=== PATIENT | female | born 1940 | race Caucasian/White ===

== ENCOUNTER 2016-12-26 19:05 | Emergency (ER) | payer MEDICARE, BC ==
[2016-12-26] MEDS ORDERED: Lidocaine 1% 20 ML MDV INFILT ONE (19:06)
[2016-12-26 19:24] VITALS: BP 148/65
[2016-12-26] MEDS ORDERED: Diphtheria,Pertussis(Acell),Tetanus Vaccine 0.5 ML SDV IM ONE (19:35)
--- NOTE | 2016-12-26 19:51 | EDM.PDOC ---
ED HPI GENERAL MEDICAL PROBLEM - General Chief Complaint: Laceration Stated Complaint: CUT FINGER Time Seen by Provider: 12/26/16 19:20 Source of Information: Reports: Patient History Limitations: Reports: No Limitations - History of Present Illness INITIAL COMMENTS - FREE TEXT/NARRATIVE: Patient is a 76 year old woman who was slicing cucumbers with a slicer and she sliced the end of her right little finger. This happened at 3 pm today. She is on Coumadin and it is bleeding. She needs to have a tetanus shot. 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) - Related Data Allergies Allergy/AdvReac Type Severity Reaction Status Date / Time amoxicillin trihydrate Allergy Diarrhea Verified 12/26/16 19:15 [From Augmentin] celecoxib [From Celebrex] Allergy Stomach Verified 12/26/16 19:15 Ache ciprofloxacin [From Cipro] Allergy Nausea Verified 12/26/16 19:15 ciprofloxacin HCl Allergy Nausea Verified 12/26/16 19:15 [From Cipro] lisinopril Allergy Rash Verified 12/26/16 19:15 potassium clavulanate Allergy Diarrhea Verified 12/26/16 19:15 [From Augmentin] rofecoxib [From Vioxx] Allergy Stomach Verified 12/26/16 19:15 Ache Home Meds: Home Meds Citalopram [Citalopram HBr] 10 mg PO DAILY 06/14/14 [History] Ramipril [Altace] 5 mg PO DAILY 06/14/14 [History] Furosemide [Lasix] 20 mg PO DAILY 08/25/14 [History] Aspirin [Ecotrin] 81 mg PO DAILY 05/05/16 [History] Metoprolol Tartrate 0.5 tab PO BID 05/05/16 [History] Omeprazole 20 mg PO DAILY 05/05/16 [History] Pramipexole [Mirapex] 0.5 tab PO DAILY 05/05/16 [History] Warfarin Sodium 5 mg PO SUTHSA 05/05/16 [History] Warfarin [Coumadin] 7.5 mg PO MOTUWEFR 05/05/16 [History] Past Medical History HEENT History: Reports: Cataract Cardiovascular History: Reports: Hypertension Other Respiratory History: smoker 20 years ago Other Gastrointestinal History: by pass surgery 15 years ago as stated by Genitourinary History: Reports: Renal Disease Musculoskeletal History: Reports: Arthritis Other Musculoskeletal History: verbaizes history of arthritis in hands and back Other Psychiatric History: confused and dizzy - Infectious Disease History Infectious Disease History: Reports: Chicken Pox, Measles, Mumps - Past Surgical History HEENT Surgical History: Reports: Cataract Surgery Cardiovascular Surgical History: Reports: Other (See Below) GI Surgical History: Reports: Cholecystectomy Other GI Surgeries/Procedures: 15 years ago Musculoskeletal Surgical History: Reports: Knee Replacement Social & Family History - Family History Family Medical History: Noncontributory - Tobacco Use Smoking Status *Q: Never Smoker Second Hand Smoke Exposure: No - Caffeine Use Caffeine Use: Reports: Coffee - Alcohol Use Days Per Week of Alcohol Use: 0 - Recreational Drug Use Recreational Drug Use: No ED ROS GENERAL - Review of Systems Review Of Systems: See Below Constitutional: Reports: No Symptoms HEENT: Reports: No Symptoms Respiratory: Reports: No Symptoms Cardiovascular: Reports: No Symptoms Endocrine: Reports: No Symptoms GI/Abdominal: Reports: No Symptoms : Reports: No Symptoms Musculoskeletal: Reports: No Symptoms Skin: Reports: Wound (End of right little finger) Neurological: Reports: No Symptoms Psychiatric: Reports: No Symptoms Hematologic/Lymphatic: Reports: No Symptoms Immunologic: Reports: No Symptoms ED EXAM, SKIN/RASH Exam: See Below Exam Limited By: No Limitations General Appearance: Alert, WD/WN, No Apparent Distress Eye Exam: Bilateral Eye: EOMI, Normal Fundi, Normal Inspection, PERRL Ears: Normal External Exam, Normal Canal, Hearing Grossly Normal, Normal TMs Nose: Normal Inspection, Normal Mucosa, No Blood Throat/Mouth: Normal Inspection, Normal Lips, Normal Teeth, Normal Gums, Normal Oropharynx, Normal Voice, No Airway Compromise Head: Atraumatic, Normocephalic Neck: Normal Inspection, Supple, Non-Tender, Full Range of Motion Respiratory/Chest: No Respiratory Distress, Lungs Clear, Normal Breath Sounds, No Accessory Muscle Use, Chest Non-Tender Peripheral Pulses: 3+: Radial (L), Radial (R) GI/Abdominal: Normal Bowel Sounds, Soft, Non-Tender, No Organomegaly, No Distention, No Abnormal Bruit, No Mass Extremities: Other (Right little finger has a 1 cm laceration on the end of her right little finger with skin flaps.) Neurological: Alert, Oriented, CN II-XII Intact, Normal Cognition, Normal Gait, Normal Reflexes, No Motor/Sensory Deficits Psychiatric: Normal Affect, Normal Mood Skin: Wound/Incision (As described above in extremity exam.) Location, Skin: Upper Extremity, Right (Little finger.) Lymphatic: No Adenopathy ED SKIN PROCEDURES - Laceration/Wound Repair Right Upper Lateral Distal Finger Lac/Wound length In cm: 1 Appearance: Superficial Distal NVT: Neuro & Vascular Intact, No Tendon Injury Anesthetic Type: Local Local Anesthesia - Lidocaine (Xylocaine): 1% Plain Local Anesthetic Volume: 1cc Skin Prep: Providone-Iodine (Betadine) Exploration/Debridement/Repair: Wound Explored, In a Bloodless Field, Explored to Base Closed with: Sutures Suture Size: 4-0 # of Sutures: 2 Suture Type: Prolene, Interrupted, Simple Sterile Dressing Applied: Nurse Tetanus Status Addressed: Yes Complications: No Course - Vital Signs Text/Narrative:: Uneventful ED course. Laceration was repaired and 2 sutures were placed. She got her tetanus shot, the wound was dressed and she will come back in one week for suture removal. Last Recorded V/S: Last Vital Signs Temp Pulse 65 12/26/16 19:21 Resp 18 12/26/16 19:21 BP 148/65 H 12/26/16 19:21 Pulse Ox 97 12/26/16 19:21 - Orders/Labs/Meds Orders: Active Orders 24 hr Category Date Time Status Vaccines to be Administered [RC] PER UNIT ROUTINE Care 12/26/16 19:35 Active Meds: Medications Discontinued Medications Generic Name Dose Route Start Last Admin Trade Name Freq PRN Reason Stop Dose Admin Diphtheria/Tetanus/Acell Pertussis 0.5 ml 12/26/16 19:35 Adacel IM 12/26/16 19:36 .ONCE ONE Departure - Departure Time of Disposition: 19:58 Disposition: Home, Self-Care 01 Condition: Good Clinical Impression: Laceration of finger of right hand - Discharge Information Referrals: Sherif Blackwood MD [Primary Care Provider] - - My Orders Last 24 Hours: My Active Orders 12/26/16 19:35 Vaccines to be Administered [RC] PER UNIT ROUTINE - Assessment/Plan Last 24 Hours: My Active Orders 12/26/16 19:35 Vaccines to be Administered [RC] PER UNIT ROUTINE
== END 2016-12-26 20:05 | disposition home or self-care (01) ==
LOC: FB.ED 19:05
DX: S61.216A Laceration without foreign body of right little finger without damage to nail, initial encounter (principal); I10 Essential (primary) hypertension; Z98.49 Cataract extraction status, unspecified eye; Z90.49 Acquired absence of other specified parts of digestive tract; Z96.659 Presence of unspecified artificial knee joint; Z99.2 Dependence on renal dialysis; Z79.01 Long term (current) use of anticoagulants; Z79.899 Other long term (current) drug therapy; Z88.1 Allergy status to other antibiotic agents; Z88.8 Allergy status to other drugs, medicaments and biological substances; W45.8XXA Other foreign body or object entering through skin, initial encounter; Z23 Encounter for immunization
CPT/HCPCS: 12001; 90715; 99282; A4217; 99283

== ENCOUNTER 2017-12-04 15:47 | Emergency (ER) | payer MEDICARE, BC ==
--- NOTE | 2017-12-04 16:26 | EDM.PDOC ---
ED HPI GENERAL MEDICAL PROBLEM - General Chief Complaint: General Stated Complaint: black stools Time Seen by Provider: 12/04/17 16:15 Source of Information: Reports: Patient History Limitations: Reports: No Limitations - History of Present Illness INITIAL COMMENTS - FREE TEXT/NARRATIVE: Patient has had black stool x 6 weeks, currently taking iron. Presents today because stool looked a little darker and was loose. Iron tablet strength was recently increased. Patient denies abdominal pain, but does have chronic N/V due to gastric bypass (). Also denies dizziness. Currently on Warfarin for Atrial fibrillation. - Related Data Allergies Allergy/AdvReac Type Severity Reaction Status Date / Time amoxicillin trihydrate Allergy Diarrhea Verified 12/04/17 16:52 [From Augmentin] celecoxib [From Celebrex] Allergy Stomach Verified 12/04/17 16:52 Ache ciprofloxacin [From Cipro] Allergy Nausea Verified 12/04/17 16:52 ciprofloxacin HCl Allergy Nausea Verified 12/04/17 16:52 [From Cipro] lisinopril Allergy Rash Verified 12/04/17 16:52 potassium clavulanate Allergy Diarrhea Verified 12/04/17 16:52 [From Augmentin] rofecoxib [From Vioxx] Allergy Stomach Verified 12/04/17 16:52 Ache hctz Allergy Dizziness Uncoded 12/04/17 16:53 Home Meds: Home Meds Citalopram [Citalopram HBr] 10 mg PO DAILY 06/14/14 [History] Ramipril [Altace] 5 mg PO DAILY 06/14/14 [History] Furosemide [Lasix] 20 mg PO DAILY 08/25/14 [History] Aspirin [Ecotrin] 81 mg PO DAILY 05/05/16 [History] Metoprolol Tartrate 0.5 tab PO BID 05/05/16 [History] Omeprazole 20 mg PO DAILY 05/05/16 [History] Pramipexole [Mirapex] 0.5 tab PO DAILY 05/05/16 [History] Warfarin Sodium 5 mg PO SUTHSA 05/05/16 [History] Warfarin [Coumadin] 7.5 mg PO MOTUWEFR 05/05/16 [History] Past Medical History HEENT History: Reports: Cataract Cardiovascular History: Reports: Afib, Hypertension, Pacemaker Other Respiratory History: smoker 20 years ago Gastrointestinal History: Reports: GERD Other Gastrointestinal History: by pass surgery 15 years ago as stated by Genitourinary History: Reports: Chronic Renal Insuffiency Musculoskeletal History: Reports: Arthritis Other Musculoskeletal History: verbaizes history of arthritis in hands and back Other Psychiatric History: confused and dizzy Hematologic History: Reports: Anemia - Infectious Disease History Infectious Disease History: Reports: Chicken Pox, Measles, Mumps - Past Surgical History HEENT Surgical History: Reports: Cataract Surgery Cardiovascular Surgical History: Reports: Other (See Below) (Tricuspid and Mitral valve repair) GI Surgical History: Reports: Bariatric Procedure (Gastric bypass (1960's)), Cholecystectomy Other GI Surgeries/Procedures: 15 years ago Musculoskeletal Surgical History: Reports: Knee Replacement Social & Family History - Family History Family Medical History: Noncontributory - Tobacco Use Smoking Status *Q: Never Smoker Tobacco Use Within Last Twelve Months: No - Caffeine Use Caffeine Use: Reports: Coffee ED ROS GENERAL - Review of Systems Review Of Systems: ROS reveals no pertinent complaints other than HPI. ED EXAM, GENERAL - Physical Exam Exam: See Below Exam Limited By: No Limitations General Appearance: Alert, WD/WN, No Apparent Distress Ears: Normal External Exam Nose: Normal Inspection Throat/Mouth: No Airway Compromise Head: Atraumatic, Normocephalic Neck: Supple Respiratory/Chest: No Respiratory Distress, Normal Breath Sounds Cardiovascular: Regular Rate, Rhythm, No Murmur GI/Abdominal: Normal Bowel Sounds, Soft, Non-Tender, No Distention (Female) Exam: Deferred Rectal (Female) Exam: Normal Exam, Normal Rectal Tone, Black Stool, Heme - Stool Neurological: Alert, Normal Cognition, No Motor/Sensory Deficits Psychiatric: Normal Affect, Normal Mood Skin Exam: Warm, Dry, Intact, Normal Color Course - Orders/Labs/Meds Orders: Active Orders 24 hr Category Date Time Status Hemoccult [OCCULT BLOOD DIAGNOSTIC] [OP] Stat Lab 12/04/17 16:11 Ordered Labs: Laboratory Tests 12/04/17 12/04/17 Range/Units 16:25 16:25 WBC 7.8 (4.5-12.0) X10-3/uL RBC 4.32 (3.23-5.20) x10(6)uL Hgb 12.9 (11.5-15.5) g/dL Hct 38.8 (30.0-51.3) % MCV 89.8 (80-96) fL MCH 30.0 (27.7-33.6) pg MCHC 33.4 (32.2-35.4) g/dL RDW 13.9 (11.5-15.5) % Plt Count 287 (125-369) X10(3)uL MPV 7.8 (7.4-10.4) fL Neut % (Auto) 74.6 (46-82) % Lymph % (Auto) 14.2 (13-37) % Spink % (Auto) 9.2 (4-12) % Eos % (Auto) 2 (1.0-5.0) % Baso % (Auto) 0 (0-2) % Neut # (Auto) 5.9 (1.6-8.3) # Lymph # (Auto) 1.1 (0.6-5.0) # Spink # (Auto) 0.7 (0.0-1.3) # Eos # (Auto) 0.1 (0.0-0.8) # Baso # (Auto) 0.0 (0.0-0.2) # PT 11.5 H (8.7-11.1) INR 1.19 H (0.89-1.13) Departure - Departure Time of Disposition: 17:04 Disposition: Home, Self-Care 01 Condition: Good Clinical Impression: Normal exam - Discharge Information *PRESCRIPTION DRUG MONITORING PROGRAM REVIEWED*: No *COPY OF PRESCRIPTION DRUG MONITORING REPORT IN PATIENT JIMMY: Not Applicable Forms: ED Department Discharge Additional Instructions: Call Warfarin clinic tomorrow for recommendations on dosage adjustment due to low INR. - My Orders Last 24 Hours: My Active Orders 12/04/17 16:11 Hemoccult [OCCULT BLOOD DIAGNOSTIC] [OP] Stat - Assessment/Plan Last 24 Hours: My Active Orders 12/04/17 16:11 Hemoccult [OCCULT BLOOD DIAGNOSTIC] [OP] Stat
[2017-12-04 20:49] VITALS: BP 109/86
== END 2017-12-04 17:13 | disposition home or self-care (01) ==
LOC: FB.ED 15:47
DX: R19.5 Other fecal abnormalities (principal); I12.9 Hypertensive chronic kidney disease with stage 1 through stage 4 chronic kidney disease, or unspecified chronic kidney disease; N18.9 Chronic kidney disease, unspecified; Z87.891 Personal history of nicotine dependence; Z79.82 Long term (current) use of aspirin; Z79.899 Other long term (current) drug therapy; Z90.49 Acquired absence of other specified parts of digestive tract; Z88.0 Allergy status to penicillin; Z88.8 Allergy status to other drugs, medicaments and biological substances
CPT/HCPCS: 36415; 82272; 85025; 85610; 99283

== ENCOUNTER 2019-11-06 12:32 | Inpatient (IN) | payer MEDICARE, BC ==
[2019-11-06] MEDS ORDERED: Sodium Chloride 0.9% 10 ML Syringe FLUSH PRN (12:36)
[2019-11-06] MEDS ORDERED: Furosemide 40 MG/4 ML VIAL IVPUSH ONE ×2 (13:06→16:20)
[2019-11-06] MEDS ORDERED: Labetalol 20 MG/4 ML Syringe IVPUSH ONE (13:12)
--- NOTE | 2019-11-06 13:12 | EDM.PDOC ---
ED HPI GENERAL MEDICAL PROBLEM - General Chief Complaint: Respiratory Problem Stated Complaint: SOB Time Seen by Provider: 11/06/19 13:10 Source of Information: Reports: Patient History Limitations: Reports: No Limitations - History of Present Illness INITIAL COMMENTS - FREE TEXT/NARRATIVE: 79 you who came in with SOB and difficulty breathing for several hours.Associated with wheezing,neck pain. has a h/o afib,HTN and pacemaker.She also had a CABG x2 in 2016.Denies fever,or URI symptoms. - Related Data Allergies Allergy/AdvReac Type Severity Reaction Status Date / Time amoxicillin trihydrate Allergy Diarrhea Verified 12/04/17 16:52 [From Augmentin] celecoxib [From Celebrex] Allergy Stomach Verified 12/04/17 16:52 Ache ciprofloxacin [From Cipro] Allergy Nausea Verified 12/04/17 16:52 ciprofloxacin HCl Allergy Nausea Verified 12/04/17 16:52 [From Cipro] hydrochlorothiazide Allergy Dizziness Verified 12/04/17 20:23 lisinopril Allergy Rash Verified 12/04/17 16:52 potassium clavulanate Allergy Diarrhea Verified 12/04/17 16:52 [From Augmentin] rofecoxib [From Vioxx] Allergy Stomach Verified 12/04/17 16:52 Ache Home Meds: Home Meds Citalopram [Citalopram HBr] 10 mg PO DAILY 06/14/14 [History] Ramipril [Altace] 5 mg PO DAILY 06/14/14 [History] Furosemide [Lasix] 20 mg PO DAILY 08/25/14 [History] Aspirin [Ecotrin EC] 81 mg PO DAILY 05/05/16 [History] Metoprolol Tartrate 12.5 mg PO BID 05/05/16 [History] Pramipexole [Mirapex] 0.25 mg PO BEDTIME 05/05/16 [History] Warfarin Sodium 5 mg PO DAILY 05/05/16 [History] Calcium Carbonate/Vitamin D3 [Calcium 500-Vit D3 200 Tablet] 6 tab PO DAILY 12/04/17 [History] Cholecalciferol (Vitamin D3) [Vitamin D3] 2,000 unit PO DAILY 12/04/17 [History] Cranberry 500 mg PO DAILY 12/04/17 [History] Levothyroxine 75 mcg PO DAILY 12/04/17 [History] Sennosides/Docusate Sodium [Senna Laxative Tablet] 8.6 mg PO DAILY PRN 12/04/17 [History] ondansetron HCL [Zofran] 4 mg PO Q6H PRN 12/04/17 [History] Past Medical History HEENT History: Reports: Cataract Cardiovascular History: Reports: Afib, Hypertension, Pacemaker Other Respiratory History: smoker 20 years ago Gastrointestinal History: Reports: GERD Other Gastrointestinal History: by pass surgery 15 years ago as stated by Genitourinary History: Reports: Chronic Renal Insuffiency 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: Musculoskeletal History: Reports: Arthritis Other Musculoskeletal History: verbaizes history of arthritis in hands and back Psychiatric History: Reports: Depression Other Psychiatric History: confused and dizzy Endocrine/Metabolic History: Reports: Hypothyroidism Hematologic History: Reports: Anemia - Infectious Disease History Infectious Disease History: Reports: Chicken Pox, Measles, Mumps - Past Surgical History HEENT Surgical History: Reports: Cataract Surgery Cardiovascular Surgical History: Reports: Other (See Below) (Tricuspid and Mitral valve repair) GI Surgical History: Reports: Bariatric Procedure (Gastric bypass (1960's)), Cholecystectomy Other GI Surgeries/Procedures: 15 years ago Musculoskeletal Surgical History: Reports: Knee Replacement Social & Family History - Family History Family Medical History: Noncontributory - Caffeine Use Caffeine Use: Reports: Coffee ED ROS GENERAL - Review of Systems Review Of Systems: Comprehensive ROS is negative, except as noted in HPI. ED EXAM, GENERAL - Physical Exam Exam: See Below Exam Limited By: No Limitations General Appearance: Alert Ears: Normal External Exam Throat/Mouth: Normal Inspection Head: Sinus Tenderness Respiratory/Chest: No Respiratory Distress, Accessory Muscle Use Cardiovascular: Normal Peripheral Pulses. No: Regular Rate, Rhythm GI/Abdominal: Normal Bowel Sounds, Soft Back Exam: Normal Inspection Extremities: Normal Inspection Neurological: Alert, Oriented Course - Vital Signs Last Recorded V/S: Last Vital Signs Temp 98.7 F 11/06/19 12:32 Pulse 81 11/06/19 12:32 Resp 29 H 11/06/19 12:32 BP 224/97 H 11/06/19 12:32 Pulse Ox 96 11/06/19 12:32 - Orders/Labs/Meds Orders: Active Orders 24 hr Category Date Time Status EKG Documentation Completion [RC] AM Care 11/06/19 12:36 Active EKG Documentation Completion [RC] ASDIRECTED Care 11/06/19 12:37 Active Chest 1V Frontal [CR] Stat Exams 11/06/19 12:37 Taken Sodium Chloride 0.9% [Saline Flush] Med 11/06/19 12:36 Active 10 ml FLUSH ASDIRECTED PRN Peripheral IV Insertion Adult [OM.PC] Stat Oth 11/06/19 12:36 Ordered EKG 12 Lead [EK] Stat Ther 11/06/19 12:36 Ordered Medication Orders Sodium Chloride (Saline Flush) 10 ml FLUSH ASDIRECTED PRN PRN Reason: Keep Vein Open Labs: Laboratory Tests 11/06/19 11/06/19 11/06/19 Range/Units 12:45 12:45 12:45 WBC 8.7 (4.5-12.0) X10-3/uL RBC 4.07 (3.23-5.20) x10(6)uL Hgb 11.3 L (11.5-15.5) g/dL Hct 35.5 (30.0-51.3) % MCV 87.3 (80-96) fL MCH 27.7 (27.7-33.6) pg MCHC 31.7 L (32.2-35.4) g/dL RDW 15.6 H (11.5-15.5) % Plt Count 314 (125-369) X10(3)uL MPV 8.4 (7.4-10.4) fL Neut % (Auto) 77.9 (46-82) % Lymph % (Auto) 9.1 L (13-37) % Leslie % (Auto) 11.9 (4-12) % Eos % (Auto) 1 (1.0-5.0) % Baso % (Auto) 1 (0-2) % Neut # (Auto) 6.8 (1.6-8.3) # Lymph # (Auto) 0.8 (0.6-5.0) # Leslie # (Auto) 1.0 (0.0-1.3) # Eos # (Auto) 0.1 (0.0-0.8) # Baso # (Auto) 0.0 (0.0-0.2) # Sodium 139 (135-145) mmol/L Potassium 4.2 (3.5-5.3) mmol/L Chloride 102 (100-110) mmol/L Carbon Dioxide 28 (21-32) mmol/L BUN 17 (7-18) mg/dL Creatinine 1.5 H (0.55-1.02) mg/dL Est Cr Clr Drug Dosing TNP Estimated GFR (MDRD) 33 L (>60) BUN/Creatinine Ratio 11.3 (9-20) Glucose 140 H (80-116) mg/dL Calcium 9.3 (8.6-10.2) mg/dL Total Bilirubin 1.5 H (0.1-1.3) mg/dL AST 28 H (5-25) IU/L ALT 15 (12-36) U/L Alkaline Phosphatase 69 (56-112) IU/L Troponin I 434.6 H* (4.0-60.3) pg/mL NT-Pro-B Natriuret Pep 38748 H* (<=450) pg/mL Total Protein 7.1 (6.0-8.0) g/dL Albumin 3.4 (3.2-4.6) g/dL Globulin 3.7 g/dL Albumin/Globulin Ratio 0.9 SARS Virus RNA (PCR) (NEGATIVE) 11/06/19 Range/Units 13:30 WBC (4.5-12.0) X10-3/uL RBC (3.23-5.20) x10(6)uL Hgb (11.5-15.5) g/dL Hct (30.0-51.3) % MCV (80-96) fL MCH (27.7-33.6) pg MCHC (32.2-35.4) g/dL RDW (11.5-15.5) % Plt Count (125-369) X10(3)uL MPV (7.4-10.4) fL Neut % (Auto) (46-82) % Lymph % (Auto) (13-37) % Leslie % (Auto) (4-12) % Eos % (Auto) (1.0-5.0) % Baso % (Auto) (0-2) % Neut # (Auto) (1.6-8.3) # Lymph # (Auto) (0.6-5.0) # Leslie # (Auto) (0.0-1.3) # Eos # (Auto) (0.0-0.8) # Baso # (Auto) (0.0-0.2) # Sodium (135-145) mmol/L Potassium (3.5-5.3) mmol/L Chloride (100-110) mmol/L Carbon Dioxide (21-32) mmol/L BUN (7-18) mg/dL Creatinine (0.55-1.02) mg/dL Est Cr Clr Drug Dosing Estimated GFR (MDRD) (>60) BUN/Creatinine Ratio (9-20) Glucose (80-116) mg/dL Calcium (8.6-10.2) mg/dL Total Bilirubin (0.1-1.3) mg/dL AST (5-25) IU/L ALT (12-36) U/L Alkaline Phosphatase (56-112) IU/L Troponin I (4.0-60.3) pg/mL NT-Pro-B Natriuret Pep (<=450) pg/mL Total Protein (6.0-8.0) g/dL Albumin (3.2-4.6) g/dL Globulin g/dL Albumin/Globulin Ratio SARS Virus RNA (PCR) Negative (NEGATIVE) Meds: Medications Generic Name Dose Route Start Last Admin Trade Name Freq PRN Reason Stop Dose Admin Sodium Chloride 10 ml 11/06/19 12:36 Saline Flush FLUSH ASDIRECTED PRN Keep Vein Open Discontinued Medications Generic Name Dose Route Start Last Admin Trade Name Freq PRN Reason Stop Dose Admin Furosemide 40 mg 11/06/19 13:06 11/06/19 13:13 Lasix IVPUSH 11/06/19 13:07 40 mg NOW ONE Administration Labetalol HCl 10 mg 11/06/19 13:12 11/06/19 13:20 Normodyne IVPUSH 11/06/19 13:13 10 mg ONETIME ONE Administration Protocol Departure - Departure Time of Disposition: 14:57 Disposition: Admitted As Inpatient 65 Clinical Impression: Fluid volume disorder - Discharge Information Referrals: PCP,None [Ordering Only Provider] - Forms: ED Department Discharge Sepsis Event Note (ED) - Evaluation Sepsis Screening Result: No Definite Risk - Focused Exam Vital Signs: Vital Signs Temp Pulse Resp BP Pulse Ox 11/06/19 12:32 98.7 F 81 29 H 224/97 H 96 - Problem List & Annotations (1) CHF exacerbation SNOMED Code(s): 672129006, 32325037325355 Code(s): I50.9 - HEART FAILURE, UNSPECIFIED Status: Acute Current Visit: Yes Qualifiers: Heart failure type: unspecified Qualified Code(s): I50.9 - Heart failure, unspecified (2) Afib SNOMED Code(s): 66270328 Code(s): I48.91 - UNSPECIFIED ATRIAL FIBRILLATION Status: Acute Current Visit: Yes Qualifiers: Atrial fibrillation type: paroxysmal Qualified Code(s): I48.0 - Paroxysmal atrial fibrillation (3) NSTEMI (non-ST elevated myocardial infarction) SNOMED Code(s): 93367532 Code(s): I21.4 - NON-ST ELEVATION (NSTEMI) MYOCARDIAL INFARCTION Status: Acute Current Visit: Yes (4) Pacemaker SNOMED Code(s): 758561418 Code(s): Z95.0 - PRESENCE OF CARDIAC PACEMAKER Status: Acute Current Visit: Yes (5) HTN (hypertension) SNOMED Code(s): 83729161 Code(s): I10 - ESSENTIAL (PRIMARY) HYPERTENSION Status: Acute Current Visit: Yes Qualifiers: Hypertension type: essential hypertension Qualified Code(s): I10 - Essential (primary) hypertension - Problem List Review Problem List Initiated/Reviewed/Updated: Yes - My Orders Last 24 Hours: My Active Orders 11/06/19 12:36 EKG Documentation Completion [RC] AM Sodium Chloride 0.9% [Saline Flush] 10 ml FLUSH ASDIRECTED PRN Peripheral IV Insertion Adult [OM.PC] Stat EKG 12 Lead [EK] Stat 11/06/19 12:37 EKG Documentation Completion [RC] ASDIRECTED Chest 1V Frontal [CR] Stat - Assessment/Plan Last 24 Hours: My Active Orders 11/06/19 12:36 EKG Documentation Completion [RC] AM Sodium Chloride 0.9% [Saline Flush] 10 ml FLUSH ASDIRECTED PRN Peripheral IV Insertion Adult [OM.PC] Stat EKG 12 Lead [EK] Stat 11/06/19 12:37 EKG Documentation Completion [RC] ASDIRECTED Chest 1V Frontal [CR] Stat Plan: Admit.
[2019-11-06] MEDS ORDERED: Aspirin 81 MG Tab.Chew PO ONE (14:59)
[2019-11-06] MEDS ORDERED: Ticagrelor 90 MG Tab PO ONE (14:59)
--- NOTE | 2019-11-06 15:56 | PCM.HP.2 ---
H&P History of Present Illness - General Date of Service: 11/06/19 Admit Problem/Dx: Admission Diagnosis/Problem Admission Diagnosis/Problem Dyspnea Source of Information: Patient, Old Records History Limitations: Reports: No Limitations - History of Present Illness Initial Comments - Free Text/Narative: This is an 79-year-old female patient that lives in [place] with her . She states she took a nap yesterday and when she woke up at 10:10 PM she was short of breath. Was yesterday and she says she was short of breath and couldn't sleep all night. She says she tried to lay down but could not. In the morning she called her friend was nurse who told her to come to the hospital. She states she feels short of breath and oxygen is making her feel much better. She has history of A. fib and had a bypass surgery believe in 2016. She denies any chest pain, fevers, chills, wheezes, cough, leg swelling. She may have some PND or orthopnea but she's not specific. She always has a runny nose and that has not changed. She has no history of CHF. She says she goes the [facility] every year and she did have echo at the [facility] is here according to the patient. She is on 20 mg of Lasix and she's not sure why. She says I should ask Dr. Blackwood - Related Data Allergies/Adverse Reactions: Allergies Allergy/AdvReac Type Severity Reaction Status Date / Time amoxicillin trihydrate Allergy Diarrhea Verified 12/04/17 16:52 [From Augmentin] celecoxib [From Celebrex] Allergy Stomach Verified 12/04/17 16:52 Ache ciprofloxacin [From Cipro] Allergy Nausea Verified 12/04/17 16:52 ciprofloxacin HCl Allergy Nausea Verified 12/04/17 16:52 [From Cipro] hydrochlorothiazide Allergy Dizziness Verified 12/04/17 20:23 lisinopril Allergy Rash Verified 12/04/17 16:52 potassium clavulanate Allergy Diarrhea Verified 12/04/17 16:52 [From Augmentin] rofecoxib [From Vioxx] Allergy Stomach Verified 12/04/17 16:52 Ache Home Medications: Home Meds Citalopram [Citalopram HBr] 10 mg PO DAILY 06/14/14 [History] Ramipril [Altace] 5 mg PO DAILY 06/14/14 [History] Furosemide [Lasix] 20 mg PO DAILY 08/25/14 [History] Aspirin [Ecotrin EC] 81 mg PO DAILY 05/05/16 [History] Metoprolol Tartrate 12.5 mg PO BID 05/05/16 [History] Pramipexole [Mirapex] 0.25 mg PO BEDTIME 05/05/16 [History] Warfarin Sodium 5 mg PO SUTUWEFRSA 05/05/16 [History] Levothyroxine 75 mcg PO DAILY 12/04/17 [History] Sennosides/Docusate Sodium [Senna Laxative Tablet] 8.6 mg PO DAILY PRN 12/04/17 [History] ondansetron HCL [Zofran] 4 mg PO Q6H PRN 12/04/17 [History] Acetaminophen [Tylenol Extra Strength] 500 mg PO Q6HR PRN 11/06/19 [History] Clobetasol [Clobetasol 0.05%] 1 applic TOP BEDTIME PRN 11/06/19 [History] Cyanocobalamin (Vitamin B-12) [B-12] 1,000 mcg PO DAILY 11/06/19 [History] Fish Oil/[place]-3 Fatty Acids [Fish Oil 1,000 MG] 1 gm PO DAILY 11/06/19 [History] Levothyroxine Sodium [Synthroid] 75 mcg PO DAILY 11/06/19 [History] Loperamide HCl [Imodium A-D] 2 tab PO QID PRN 11/06/19 [History] Metoprolol Tartrate [Lopressor] 25 mg PO BID 11/06/19 [History] Warfarin Sodium [Coumadin] 7.5 mg PO MOTH 11/06/19 [History] ondansetron HCL [Zofran] 4 mg PO Q6HR PRN 11/06/19 [History] Past Medical History HEENT History: Reports: Cataract Cardiovascular History: Reports: Afib, Hypertension, Pacemaker Other Respiratory History: smoker 20 years ago Gastrointestinal History: Reports: GERD Other Gastrointestinal History: by pass surgery 15 years ago as stated by Genitourinary History: Reports: Chronic Renal Insuffiency [employer] History: Reports: Musculoskeletal History: Reports: Arthritis Other Musculoskeletal History: verbaizes history of arthritis in hands and back Psychiatric History: Reports: Depression Other Psychiatric History: confused and dizzy Endocrine/Metabolic History: Reports: Hypothyroidism Hematologic History: Reports: Anemia - Infectious Disease History Infectious Disease History: Reports: Chicken Pox, Measles, Mumps - Past Surgical History HEENT Surgical History: Reports: Cataract Surgery Cardiovascular Surgical History: Reports: Other (See Below) (Tricuspid and Mitral valve repair) GI Surgical History: Reports: Bariatric Procedure (Gastric bypass (1959's)), Cholecystectomy Other GI Surgeries/Procedures: 15 years ago Musculoskeletal Surgical History: Reports: Knee Replacement Social & Family History - Family History Family Medical History: Noncontributory - Caffeine Use Caffeine Use: Reports: Coffee H&P Review of Systems - Review of Systems: Review Of Systems: See Below General: Reports: No Symptoms HEENT: Reports: Rhinitis Pulmonary: Reports: Shortness of Breath. Denies: Wheezing, Cough, Sputum, Hemoptysis Cardiovascular: Reports: Orthopnea, PND. Denies: Chest Pain, Palpitations Gastrointestinal: Reports: No Symptoms Genitourinary: Reports: No Symptoms Musculoskeletal: Reports: No Symptoms Skin: Reports: No Symptoms Psychiatric: Reports: No Symptoms Neurological: Reports: No Symptoms Hematologic/Lymphatic: Reports: No Symptoms Immunologic: Reports: No Symptoms Exam - Exam Exam: See Below - Vital Signs Vital Signs: Last Vital Signs Temp 98.7 F 11/06/19 12:32 Pulse 81 11/06/19 12:32 Resp 29 H 11/06/19 12:32 BP 224/97 H 11/06/19 12:32 Pulse Ox 96 11/06/19 12:32 - Exam General: Alert, Oriented, Cooperative HEENT: PERRLA, Hearing Intact, Mucosa Moist & [place], Posterior Pharynx Clear, TMs Clear Neck: Supple, Trachea Midline Lungs: Clear to Auscultation, Normal Respiratory Effort, Decreased Breath Sounds. No: Crackles, Rales, Rhonchi Cardiovascular: Regular Rate, Irregular Rhythm, Systolic Murmur GI/Abdominal Exam: Normal Bowel Sounds, Soft, Non-Tender, No Organomegaly, No Distention, No Mass Back Exam: Normal Inspection, Full Range of Motion Extremities: Normal Inspection, Non-Tender, No Pedal Edema Skin: Warm, Dry, Intact Neurological: Normal Speech, Normal Tone Neuro Extensive - Mental Status: Alert, Oriented x3, Normal Mood/Affect, Normal Cognition, Memory Intact Psychiatric: Alert, Normal Affect, Normal Mood - Patient Data Lab Results Last 24 hrs: Laboratory Results - last 24 hr 11/06/19 11/06/19 11/06/19 Range/Units 12:45 12:45 12:45 WBC 8.7 (4.5-12.0) X10-3/uL RBC 4.07 (3.23-5.20) x10(6)uL Hgb 11.3 L (11.5-15.5) g/dL Hct 35.5 (30.0-51.3) % MCV 87.3 (80-96) fL MCH 27.7 (27.7-33.6) pg MCHC 31.7 L (32.2-35.4) g/dL RDW 15.6 H (11.5-15.5) % Plt Count 314 (125-369) X10(3)uL MPV 8.4 (7.4-10.4) fL Neut % (Auto) 77.9 (46-82) % Lymph % (Auto) 9.1 L (13-37) % [place] % (Auto) 11.9 (4-12) % Eos % (Auto) 1 (1.0-5.0) % Baso % (Auto) 1 (0-2) % Neut # (Auto) 6.8 (1.6-8.3) # Lymph # (Auto) 0.8 (0.6-5.0) # [place] # (Auto) 1.0 (0.0-1.3) # Eos # (Auto) 0.1 (0.0-0.8) # Baso # (Auto) 0.0 (0.0-0.2) # Sodium 139 (135-145) mmol/L Potassium 4.2 (3.5-5.3) mmol/L Chloride 102 (100-110) mmol/L Carbon Dioxide 28 (21-32) mmol/L BUN 17 (7-18) mg/dL Creatinine 1.5 H (0.55-1.02) mg/dL Est Cr Clr Drug Dosing TNP Estimated GFR (MDRD) 33 L (>60) BUN/Creatinine Ratio 11.3 (9-20) Glucose 140 H (80-116) mg/dL Calcium 9.3 (8.6-10.2) mg/dL Total Bilirubin 1.5 H (0.1-1.3) mg/dL AST 28 H (5-25) IU/L ALT 15 (12-36) U/L Alkaline Phosphatase 69 (56-112) IU/L Troponin I 434.6 H* (4.0-60.3) pg/mL NT-Pro-B Natriuret Pep 67474 H* (<=450) pg/mL Total Protein 7.1 (6.0-8.0) g/dL Albumin 3.4 (3.2-4.6) g/dL Globulin 3.7 g/dL Albumin/Globulin Ratio 0.9 SARS Virus RNA (PCR) (NEGATIVE) 11/06/19 Range/Units 13:30 WBC (4.5-12.0) X10-3/uL RBC (3.23-5.20) x10(6)uL Hgb (11.5-15.5) g/dL Hct (30.0-51.3) % MCV (80-96) fL MCH (27.7-33.6) pg MCHC (32.2-35.4) g/dL RDW (11.5-15.5) % Plt Count (125-369) X10(3)uL MPV (7.4-10.4) fL Neut % (Auto) (46-82) % Lymph % (Auto) (13-37) % [place] % (Auto) (4-12) % Eos % (Auto) (1.0-5.0) % Baso % (Auto) (0-2) % Neut # (Auto) (1.6-8.3) # Lymph # (Auto) (0.6-5.0) # [place] # (Auto) (0.0-1.3) # Eos # (Auto) (0.0-0.8) # Baso # (Auto) (0.0-0.2) # Sodium (135-145) mmol/L Potassium (3.5-5.3) mmol/L Chloride (100-110) mmol/L Carbon Dioxide (21-32) mmol/L BUN (7-18) mg/dL Creatinine (0.55-1.02) mg/dL Est Cr Clr Drug Dosing Estimated GFR (MDRD) (>60) BUN/Creatinine Ratio (9-20) Glucose (80-116) mg/dL Calcium (8.6-10.2) mg/dL Total Bilirubin (0.1-1.3) mg/dL AST (5-25) IU/L ALT (12-36) U/L Alkaline Phosphatase (56-112) IU/L Troponin I (4.0-60.3) pg/mL NT-Pro-B Natriuret Pep (<=450) pg/mL Total Protein (6.0-8.0) g/dL Albumin (3.2-4.6) g/dL Globulin g/dL Albumin/Globulin Ratio SARS Virus RNA (PCR) Negative (NEGATIVE) Result Diagrams: 11/06/19 12:45 11/06/19 12:45 Sepsis Event Note - Evaluation Sepsis Screening Result: No Definite Risk - Focused Exam Vital Signs: Vital Signs Temp Pulse Resp BP Pulse Ox 11/06/19 12:32 98.7 F 81 29 H 224/97 H 96 Date Exam was Performed: 11/06/19 Time Exam was Performed: 15:50 - Problem List (1) Chronic renal insufficiency SNOMED Code(s): 182481284 ICD Code: N18.9 - CHRONIC KIDNEY DISEASE, UNSPECIFIED Status: Acute Current Visit: Yes (2) Palliative care status SNOMED Code(s): 414619217 ICD Code: Z51.5 - ENCOUNTER FOR PALLIATIVE CARE Status: Acute Current Visit: Yes (3) Afib SNOMED Code(s): 33326222 ICD Code: I48.91 - UNSPECIFIED ATRIAL FIBRILLATION Status: Acute Current Visit: Yes Qualifiers: Atrial fibrillation type: paroxysmal Qualified Code(s): I48.0 - Paroxysmal atrial fibrillation (4) CHF exacerbation SNOMED Code(s): 861147786, 27612903460821 ICD Code: I50.9 - HEART FAILURE, UNSPECIFIED Status: Acute Current Visit: Yes Qualifiers: Heart failure type: unspecified Qualified Code(s): I50.9 - Heart failure, unspecified (5) HTN (hypertension) SNOMED Code(s): 79297183 ICD Code: I10 - ESSENTIAL (PRIMARY) HYPERTENSION Status: Acute Current Visit: Yes Qualifiers: Hypertension type: essential hypertension Qualified Code(s): I10 - Essential (primary) hypertension (6) NSTEMI (non-ST elevated myocardial infarction) SNOMED Code(s): 94895116 ICD Code: I21.4 - NON-ST ELEVATION (NSTEMI) MYOCARDIAL INFARCTION Status: Acute Current Visit: Yes (7) Pacemaker SNOMED Code(s): 597508318 ICD Code: Z95.0 - PRESENCE OF CARDIAC PACEMAKER Status: Acute Current Visit: Yes Problem List Initiated/Reviewed/Updated: Yes Orders Last 24hrs: Active Orders 24 hr Category Date Time Status Patient Status [ADT] Routine ADT 11/06/19 14:59 Active EKG Documentation Completion [RC] AM Care 11/06/19 12:36 Active EKG Documentation Completion [RC] ASDIRECTED Care 11/06/19 12:37 Active Height and Weight [RC] DAILY Care 11/06/19 14:59 Active Oxygen Therapy [RC] PRN Care 11/06/19 14:59 Active Up With Assistance [RC] ASDIRECTED Care 11/06/19 14:59 Active VTE/DVT Education [RC] Per Unit Routine Care 11/06/19 14:59 Active Vital Signs [RC] Q8H Care 11/06/19 14:59 Active Heart Healthy Diet [DIET] Diet 11/06/19 Breakfast Ordered Chest 1V Frontal [CR] Stat Exams 11/06/19 12:37 Taken BASIC METABOLIC PANEL,BMP [CHEM] AM Lab 11/07/19 05:11 Ordered TROPONIN I [CHEM] AM Lab 11/07/19 05:11 Ordered Furosemide [Lasix] Med 11/06/19 21:00 Active 20 mg IVPUSH BID Sodium Chloride 0.9% [Saline Flush] Med 11/06/19 12:36 Active 10 ml FLUSH ASDIRECTED PRN Peripheral IV Insertion Adult [OM.PC] Stat Oth 11/06/19 12:36 Ordered Resuscitation Status Routine Resus Stat 11/06/19 14:59 Ordered EKG 12 Lead [EK] Stat Ther 11/06/19 12:36 Ordered Medication Orders Furosemide (Lasix) 20 mg IVPUSH BID HEIDI Sodium Chloride (Saline Flush) 10 ml FLUSH ASDIRECTED PRN PRN Reason: Keep Vein Open Assessment/Plan Comment:: 1. Admit to inpatient for CHF and non-STEMI 2. Telemetry 3. Patient wants to be a DO NOT RESUSCITATE DO NOT INTUBATE 4. Cardiac diet 5. Serial troponins. Will not repeat EKG due to paced beats 6. Coumadin for VTE prophylaxis and SCDs 7. Up ad jeannette. 8. IV Lasix 9. Review meds and restart most of her meds. 10. With a non-STEMI I discussed transfer with the patient and a cardiology referral. The patient understands and does not want to be referred to [facility] at this time. She wants to be treated medically she states. - Mortality Measure Prognosis:: Good
[2019-11-06] MEDS ORDERED: Loperamide 2 MG Cap PO PRN (15:59)
[2019-11-06] MEDS ORDERED: Acetaminophen 500 MG Tab PO PRN (15:59)
[2019-11-06] MEDS ORDERED: Ondansetron 4 MG Tab.DIS PO PRN (15:59)
[2019-11-06] MEDS ORDERED: Non-Formulary Medication 1 Each (Ondansetron Hcl [Zofran] 4 MG) PO PRN (15:59)
[2019-11-06] MEDS ORDERED: Clobetasol 0.05% Crm 15 GM Tube TOP PRN (15:59)
[2019-11-06] MEDS ORDERED: Warfarin 5 MG Tab ONE (17:28)
[2019-11-06] MEDS: Warfarin 5 MG Tab PO SCH (17:33)
[2019-11-06] MEDS ORDERED: Furosemide 20 MG/2 ML VIAL IVPUSH SCH (21:00)
[2019-11-06] MEDS ORDERED: Pramipexole 0.25 MG Tab PO SCH (21:00)
[2019-11-06] MEDS ORDERED: Metoprolol Tartrate 25 MG Tab PO SCH ×2 (21:00)
[2019-11-07] MEDS ORDERED: Levothyroxine 75 MCG Tab PO SCH ×2 (07:30→09:00)
[2019-11-07] MEDS ORDERED: traMADol 50 MG Tab PO PRN (07:50)
--- NOTE | 2019-11-07 07:54 | PCM.PN ---
- General Info Date of Service: 11/07/19 Admission Dx/Problem (Free Text): Patient states she feels much better today. She denies any shortness of breath, wheezing, cough, leg swelling, chest pain. She says the bed is very uncomfortable and she would like to go home. - Patient Data Vitals - Most Recent: Last Vital Signs Temp 98.3 F 11/07/19 00:00 Pulse 60 11/07/19 00:00 Resp 20 11/07/19 00:00 BP 164/68 H 11/07/19 00:00 Pulse Ox 95 11/07/19 03:00 Weight - Most Recent: 187 lb 4.8 oz I&O - Last 24 Hours: Intake & Output 11/06/19 11/07/19 11/07/19 22:59 06:59 14:59 Output Total 700 700 Balance -700 -700 Lab Results Last 24 Hours: Laboratory Results - last 24 hr 11/06/19 11/06/19 11/06/19 Range/Units 12:45 12:45 12:45 WBC 8.7 (4.5-12.0) X10-3/uL RBC 4.07 (3.23-5.20) x10(6)uL Hgb 11.3 L (11.5-15.5) g/dL Hct 35.5 (30.0-51.3) % MCV 87.3 (80-96) fL MCH 27.7 (27.7-33.6) pg MCHC 31.7 L (32.2-35.4) g/dL RDW 15.6 H (11.5-15.5) % Plt Count 314 (125-369) X10(3)uL MPV 8.4 (7.4-10.4) fL Neut % (Auto) 77.9 (46-82) % Lymph % (Auto) 9.1 L (13-37) % [place] % (Auto) 11.9 (4-12) % Eos % (Auto) 1 (1.0-5.0) % Baso % (Auto) 1 (0-2) % Neut # (Auto) 6.8 (1.6-8.3) # Lymph # (Auto) 0.8 (0.6-5.0) # [place] # (Auto) 1.0 (0.0-1.3) # Eos # (Auto) 0.1 (0.0-0.8) # Baso # (Auto) 0.0 (0.0-0.2) # PT (9.0-11.1) sec INR (1.00-1.24) Sodium 139 (135-145) mmol/L Potassium 4.2 (3.5-5.3) mmol/L Chloride 102 (100-110) mmol/L Carbon Dioxide 28 (21-32) mmol/L BUN 17 (7-18) mg/dL Creatinine 1.5 H (0.55-1.02) mg/dL Est Cr Clr Drug Dosing TNP Estimated GFR (MDRD) 33 L (>60) BUN/Creatinine Ratio 11.3 (9-20) Glucose 140 H (80-116) mg/dL Calcium 9.3 (8.6-10.2) mg/dL Total Bilirubin 1.5 H (0.1-1.3) mg/dL AST 28 H (5-25) IU/L ALT 15 (12-36) U/L Alkaline Phosphatase 69 (56-112) IU/L Troponin I 434.6 H* (4.0-60.3) pg/mL NT-Pro-B Natriuret Pep 47290 H* (<=450) pg/mL Total Protein 7.1 (6.0-8.0) g/dL Albumin 3.4 (3.2-4.6) g/dL Globulin 3.7 g/dL Albumin/Globulin Ratio 0.9 SARS Virus RNA (PCR) (NEGATIVE) 11/06/19 11/06/19 11/06/19 Range/Units 13:30 14:00 21:00 WBC (4.5-12.0) X10-3/uL RBC (3.23-5.20) x10(6)uL Hgb (11.5-15.5) g/dL Hct (30.0-51.3) % MCV (80-96) fL MCH (27.7-33.6) pg MCHC (32.2-35.4) g/dL RDW (11.5-15.5) % Plt Count (125-369) X10(3)uL MPV (7.4-10.4) fL Neut % (Auto) (46-82) % Lymph % (Auto) (13-37) % [place] % (Auto) (4-12) % Eos % (Auto) (1.0-5.0) % Baso % (Auto) (0-2) % Neut # (Auto) (1.6-8.3) # Lymph # (Auto) (0.6-5.0) # [place] # (Auto) (0.0-1.3) # Eos # (Auto) (0.0-0.8) # Baso # (Auto) (0.0-0.2) # PT 26.2 H (9.0-11.1) sec INR 2.59 H (1.00-1.24) Sodium (135-145) mmol/L Potassium (3.5-5.3) mmol/L Chloride (100-110) mmol/L Carbon Dioxide (21-32) mmol/L BUN (7-18) mg/dL Creatinine (0.55-1.02) mg/dL Est Cr Clr Drug Dosing Estimated GFR (MDRD) (>60) BUN/Creatinine Ratio (9-20) Glucose (80-116) mg/dL Calcium (8.6-10.2) mg/dL Total Bilirubin (0.1-1.3) mg/dL AST (5-25) IU/L ALT (12-36) U/L Alkaline Phosphatase (56-112) IU/L Troponin I 715.4 H* (4.0-60.3) pg/mL NT-Pro-B Natriuret Pep (<=450) pg/mL Total Protein (6.0-8.0) g/dL Albumin (3.2-4.6) g/dL Globulin g/dL Albumin/Globulin Ratio SARS Virus RNA (PCR) Negative (NEGATIVE) 11/07/19 11/07/19 11/07/19 Range/Units 06:10 06:10 06:10 WBC (4.5-12.0) X10-3/uL RBC (3.23-5.20) x10(6)uL Hgb (11.5-15.5) g/dL Hct (30.0-51.3) % MCV (80-96) fL MCH (27.7-33.6) pg MCHC (32.2-35.4) g/dL RDW (11.5-15.5) % Plt Count (125-369) X10(3)uL MPV (7.4-10.4) fL Neut % (Auto) (46-82) % Lymph % (Auto) (13-37) % [place] % (Auto) (4-12) % Eos % (Auto) (1.0-5.0) % Baso % (Auto) (0-2) % Neut # (Auto) (1.6-8.3) # Lymph # (Auto) (0.6-5.0) # [place] # (Auto) (0.0-1.3) # Eos # (Auto) (0.0-0.8) # Baso # (Auto) (0.0-0.2) # PT 28.2 H (9.0-11.1) sec INR 2.79 H (1.00-1.24) Sodium 138 (135-145) mmol/L Potassium 3.4 L (3.5-5.3) mmol/L Chloride 98 L (100-110) mmol/L Carbon Dioxide 34 H (21-32) mmol/L BUN 23 H (7-18) mg/dL Creatinine 1.4 H (0.55-1.02) mg/dL Est Cr Clr Drug Dosing 24.18 Estimated GFR (MDRD) 36 L (>60) BUN/Creatinine Ratio 16.4 (9-20) Glucose 155 H (80-116) mg/dL Calcium 9.6 (8.6-10.2) mg/dL Total Bilirubin (0.1-1.3) mg/dL AST (5-25) IU/L ALT (12-36) U/L Alkaline Phosphatase (56-112) IU/L Troponin I 748.2 H* (4.0-60.3) pg/mL NT-Pro-B Natriuret Pep (<=450) pg/mL Total Protein (6.0-8.0) g/dL Albumin (3.2-4.6) g/dL Globulin g/dL Albumin/Globulin Ratio SARS Virus RNA (PCR) (NEGATIVE) Med Orders - Current: Current Medications Acetaminophen (Tylenol Extra Strength) 500 mg PO Q6H PRN PRN Reason: Pain Last Admin: 11/07/19 05:54 Dose: 500 mg Documented by: Artificial Tears (Refresh) each EYEBOTH TID [facility] Aspirin (Halfprin) [address] [facility] Citalopram Hydrobromide (Celexa) [address] [facility] Clobetasol Propionate (Clobetasol Propionate 0.05%) 0 gm TOP BEDTIME PRN PRN Reason: Itching Cyanocobalamin (Vitamin B12) 1,[address] [facility] Fish Oil (Fish Oil) [address] [facility] Furosemide (Lasix) [address] [facility] Levothyroxine Sodium (Levothyroxine) [address] [facility] Last Admin: 11/07/19 06:37 Dose: 75 mcg Documented by: Loperamide HCl (Imodium) 2 mg PO QID PRN PRN Reason: Diarrhea Metoprolol Tartrate (Lopressor) [address] [facility] Last Admin: 11/06/19 20:35 Dose: 25 mg Documented by: Non-Formulary Medication (Ramipril [Altace]) [address] [facility] Ondansetron HCl (Zofran Odt) 4 mg PO Q6H PRN PRN Reason: Nausea Pramipexole Dihydrochloride (Mirapex) 0.[address] [facility] Last Admin: 11/06/19 20:35 Dose: 0.25 mg Documented by: Pramipexole Dihydrochloride (Mirapex) 0.[address] [facility] Ramipril (Altace) [address] [facility] Senna/Docusate Sodium (Senna Plus) 1 tab PO DAILY PRN PRN Reason: Constipation Sodium Chloride (Saline Flush) 10 ml FLUSH ASDIRECTED PRN PRN Reason: Keep Vein Open Last Admin: 11/06/19 16:50 Dose: 10 ml Documented by: Tramadol HCl (Ultram) 50 mg PO Q6HR PRN PRN Reason: Pain Warfarin Sodium (Coumadin) 7.5 mg PO MoTh@1600 [facility] Warfarin Sodium (Coumadin) 5 mg PO SuTuWeFrSa@1600 [facility] Last Admin: 11/06/19 17:33 Dose: 5 mg Documented by: Discontinued Medications Aspirin (Aspirin) 324 mg PO ONETIME ONE Stop: 11/06/19 15:00 Last Admin: 11/06/19 15:47 Dose: 324 mg Documented by: Furosemide (Lasix) 40 mg IVPUSH NOW ONE Stop: 11/06/19 13:07 Last Admin: 11/06/19 13:13 Dose: 40 mg Documented by: Furosemide (Lasix) 20 mg IVPUSH BID HEIDI Furosemide (Lasix) 40 mg IVPUSH NOW ONE Stop: 11/06/19 16:21 Last Admin: 11/06/19 16:46 Dose: 40 mg Documented by: Labetalol HCl (Normodyne) 10 mg IVPUSH ONETIME ONE; Protocol Stop: 11/06/19 13:13 Last Admin: 11/06/19 13:20 Dose: 10 mg Documented by: Levothyroxine Sodium (Levothyroxine) 75 mcg PO DAILY HEIDI Metoprolol Tartrate (Lopressor) 12.5 mg PO BID HEIDI Non-Formulary Medication (Ondansetron Hcl [Zofran]) 4 mg PO Q6HR PRN PRN Reason: Nausea Ticagrelor (Brilinta) 180 mg PO ONETIME ONE Stop: 11/06/19 15:00 Last Admin: 11/06/19 17:32 Dose: 180 mg Documented by: Warfarin Sodium (Coumadin) Confirm Administered Dose 5 mg .ROUTE .STK-MED ONE Stop: 11/06/19 17:29 Last Admin: 11/06/19 17:34 Dose: Not Given Documented by: - Exam General: Alert, Oriented, Cooperative Lungs: Clear to Auscultation, Normal Respiratory Effort Cardiovascular: Regular Rate, Regular Rhythm, Murmurs Extremities: No Pedal Edema Sepsis Event Note - Evaluation Sepsis Screening Result: No Definite Risk - Focused Exam Vital Signs: Vital Signs Temp Pulse Pulse Resp BP BP Pulse Ox 11/07/19 03:00 11/07/19 00:00 98.3 F 60 20 164/68 H 98 11/06/19 20:35 60 138/50 L Pulse Ox 11/07/19 03:00 95 11/07/19 00:00 11/06/19 20:35 Date Exam was Performed: 11/07/19 Time Exam was Performed: 07:52 - Problem List & Annotations (1) Chronic renal insufficiency SNOMED Code(s): 862762899 Code(s): N18.9 - CHRONIC KIDNEY DISEASE, UNSPECIFIED Status: Acute Current Visit: Yes (2) Palliative care status SNOMED Code(s): 143183312 Code(s): Z51.5 - ENCOUNTER FOR PALLIATIVE CARE Status: Acute Current Visit: Yes (3) Afib SNOMED Code(s): 03107166 Code(s): I48.91 - UNSPECIFIED ATRIAL FIBRILLATION Status: Acute Current Visit: Yes Qualifiers: Atrial fibrillation type: paroxysmal Qualified Code(s): I48.0 - Paroxysmal atrial fibrillation (4) CHF exacerbation SNOMED Code(s): 406676600, 40857027573057 Code(s): I50.9 - HEART FAILURE, UNSPECIFIED Status: Acute Current Visit: Yes Qualifiers: Heart failure type: unspecified Qualified Code(s): I50.9 - Heart failure, unspecified (5) HTN (hypertension) SNOMED Code(s): 57162332 Code(s): I10 - ESSENTIAL (PRIMARY) HYPERTENSION Status: Acute Current Visit: Yes Qualifiers: Hypertension type: essential hypertension Qualified Code(s): I10 - Essential (primary) hypertension (6) NSTEMI (non-ST elevated myocardial infarction) SNOMED Code(s): 17836575 Code(s): I21.4 - NON-ST ELEVATION (NSTEMI) MYOCARDIAL INFARCTION Status: Acute Current Visit: Yes (7) Pacemaker SNOMED Code(s): 815087564 Code(s): Z95.0 - PRESENCE OF CARDIAC PACEMAKER Status: Acute Current Visit: Yes - Problem List Review Problem List Initiated/Reviewed/Updated: Yes - My Orders Last 24 Hours: My Active Orders 11/06/19 15:57 SCD [Sequential Compression Device] [OM.PC] Routine 11/06/19 15:58 Telemetry Monitoring [Cardiac Monitoring] [RC] .As Directed 11/06/19 15:58 Resuscitation Status Routine 11/06/19 15:59 Acetaminophen [Tylenol Extra Strength] 500 mg PO Q6H PRN Clobetasol [Clobetasol Propionate 0.05%] 0 gm TOP BEDTIME PRN Docusate Sodium/Sennosides [Senna Plus] 1 tab PO DAILY PRN Loperamide [Imodium] 2 mg PO QID PRN Ondansetron [Zofran ODT] 4 mg PO Q6H PRN 11/06/19 16:02 Up With Assistance [RC] ASDIRECTED 11/06/19 16:03 Oxygen Therapy [RC] PRN 11/06/19 18:00 Warfarin [Coumadin] 5 mg PO [id number] 11/06/19 21:00 Metoprolol Tartrate [Lopressor] 25 mg PO BID Pramipexole [Mirapex] 0.25 mg PO BEDTIME 11/07/19 07:30 Levothyroxine 75 mcg PO ACBREAKFAST 11/07/19 07:50 traMADol [Ultram] 50 mg PO Q6HR PRN 11/07/19 09:00 Aspirin [Halfprin] 81 mg PO DAILY Citalopram [Celexa] 10 mg PO DAILY Cyanocobalamin (Vitamin B12) [Vitamin B12] 1,000 mcg PO DAILY Fish Oil/Colbert-3 Fatty Acids [Fish Oil] 1 gm PO DAILY Furosemide [Lasix] 20 mg PO DAILY Polyvinyl Alcohol/Povidone [Refresh] 1 drop EYEBOTH TID Pramipexole [Mirapex] 0.25 mg PO DAILY ramipriL [Altace] 5 mg PO DAILY ramipriL [Altace] 5 mg PO DAILY 11/07/19 15:30 TROPONIN I [CHEM] Routine 11/08/19 16:00 INR,PT,PROTHROMBIN TIME [COAG] DAILY Warfarin [Coumadin] 7.5 mg PO [id number]@1600 11/09/19 16:00 INR,PT,PROTHROMBIN TIME [COAG] DAILY 11/10/19 16:00 INR,PT,PROTHROMBIN TIME [COAG] DAILY 11/11/19 16:00 INR,PT,PROTHROMBIN TIME [COAG] DAILY - Plan Plan:: 1. Repeat troponin at 3:30 PM today. 2. Up and ambulation 3. The patient wants to go home. I talked about the risks of arrhythmia and dying. She says she is 79 years old and that's okay with her. Going to watch her to this afternoon. I told her to talk to her family about the risks of that and will talk about at then today again.
[2019-11-07] MEDS ORDERED: Cyanocobalamin (Vitamin B12) 1,000 MCG Tab PO SCH (09:00)
[2019-11-07] MEDS ORDERED: Fish Oil/Omega-3 Fatty Acids 1 Gm Cap PO SCH (09:00)
[2019-11-07] MEDS ORDERED: RAMIPRIL 5 MG PO SCH (09:00)
[2019-11-07] MEDS ORDERED: Pramipexole 0.25 MG Tab PO SCH ×3 (09:00→09:30)
[2019-11-07] MEDS ORDERED: Citalopram 10 MG Tab PO SCH (09:00)
[2019-11-07] MEDS ORDERED: Metoprolol Tartrate 25 MG Tab PO SCH (09:00)
[2019-11-07] MEDS ORDERED: Furosemide 20 MG Tab PO SCH ×2 (09:00)
[2019-11-07] MEDS ORDERED: Aspirin 81 MG Tab.EC PO SCH (09:00)
[2019-11-07] MEDS: Polyvinyl Alcohol 1.4%/Povidone 0.6% Ophth Soln 0.4 ML Box of 30 EYEBOTH SCH ×2 (10:28→16:16)
[2019-11-07] MEDS ORDERED: Carboxymethylcellulose Sodium 0.5% Ophth Soln 15 ML Bottle EYEBOTH ONE (10:28)
[2019-11-07 16:40] VITALS: BP 135/61; PULSE 59
[2019-11-07] MEDS: Warfarin 5 MG Tab PO SCH (16:41)
--- NOTE | 2019-11-07 16:43 | PCM.DCSUM1 ---
Discharge Summary - Hospital Course Free Text/Narrative:: Hospital course-patient was admitted and put on 60 mg IV Lasix 1. She had a good diaphoresis. X morning she felt good issues off oxygen and she had no shortness breath. She never had a chest pain. The diagnoses CHF secondary to ends STEMI. Patient had elevated creatinine and proBNP which is under 13,000. Patient felt good in the morning and did like the bed. She wanted to go home. Her initial troponin was over 400 and later in the day went 700 the morning was little higher and the but end of the second day he was in the 600. She was asymptomatic the next day. She insists on going home. I had a long talk with her about the risks of going home. I told her she could have an arrhythmia and . She says she's 79 and that's okay with her. I talk to her on the phone with her permission and told him risks of going home. He understands and is okay with taking her home. I increased her by mouth Lasix from 20 mg a 60 mg. She'll go home on that and the same medication she was on before. She is also on the ANABELLE inhibitor and a beta andi currently. I'll have her see Dr. Blackwood her primary provider this week. Brief History: This is an 79-year-old female patient that lives in [place] with her . She states she took a nap yesterday and when she woke up at 10:10 PM she was short of breath. Was yesterday and she says she was short of breath and couldn't sleep all night. She says she tried to lay down but could not. In the morning she called her friend was nurse who told her to come to the hospital. She states she feels short of breath and oxygen is making her feel much better. She has history of A. fib and had a bypass surgery believe in 2016. She denies any chest pain, fevers, chills, wheezes, cough, leg swelling. She may have some PND or orthopnea but she's not specific. She always has a runny nose and that has not changed. She has no history of CHF. She says she goes the [facility] every year and she did have echo at the [facility] is here according to the patient. She is on 20 mg of Lasix and she's not sure why. She says I should ask Dr. Blackwood Diagnosis: Stroke: No - Discharge Data Discharge Date: 11/07/19 Discharge Disposition: Home, Self-Care 01 Condition: Fair - Referral to Home Health Primary Care Physician: Sherif Blackwood MD - Discharge Diagnosis/Problem(s) (1) Chronic renal insufficiency SNOMED Code(s): 099567488 ICD Code: N18.9 - CHRONIC KIDNEY DISEASE, UNSPECIFIED Status: Acute Current Visit: Yes (2) Palliative care status SNOMED Code(s): 885418423 ICD Code: Z51.5 - ENCOUNTER FOR PALLIATIVE CARE Status: Acute Current Visit: Yes (3) Afib SNOMED Code(s): 24645549 ICD Code: I48.91 - UNSPECIFIED ATRIAL FIBRILLATION Status: Acute Current Visit: Yes Qualifiers: Atrial fibrillation type: paroxysmal Qualified Code(s): I48.0 - Paroxysmal atrial fibrillation (4) CHF exacerbation SNOMED Code(s): 244397606, 81279052091770 ICD Code: I50.9 - HEART FAILURE, UNSPECIFIED Status: Acute Current Visit: Yes Qualifiers: Heart failure type: unspecified Qualified Code(s): I50.9 - Heart failure, unspecified (5) HTN (hypertension) SNOMED Code(s): 09459179 ICD Code: I10 - ESSENTIAL (PRIMARY) HYPERTENSION Status: Acute Current Visit: Yes Qualifiers: Hypertension type: essential hypertension Qualified Code(s): I10 - Essent ial (primary) hypertension (6) NSTEMI (non-ST elevated myocardial infarction) SNOMED Code(s): 91175818 ICD Code: I21.4 - NON-ST ELEVATION (NSTEMI) MYOCARDIAL INFARCTION Status: Acute Current Visit: Yes (7) Pacemaker SNOMED Code(s): 943857559 ICD Code: Z95.0 - PRESENCE OF CARDIAC PACEMAKER Status: Acute Current Visit: Yes - Patient Instructions Diet: Heart Healthy Diet, Low Sodium Activity: As Tolerated Driving: Do Not Drive Showering/Bathing: May Shower Notify Provider of: Fever, Increased Pain Other/Special Instructions: 1. Increase her furosemide to 60 mg once a day. Patient to use her own medication. 2. get into see Dr. Blackwood for recheck this week. - Discharge Plan Home Medications: Home Meds Citalopram [Citalopram HBr] 10 mg PO DAILY 06/14/14 [History] Furosemide [Lasix] 20 mg PO DAILY 08/25/14 [History] Aspirin [Ecotrin EC] 81 mg PO DAILY 05/05/16 [History] Metoprolol Tartrate 12.5 mg PO BID 05/05/16 [History] Pramipexole [Mirapex] 0.25 mg PO BID 05/05/16 [History] Warfarin Sodium 5 mg PO SUTUWEFRSA 05/05/16 [History] Sennosides/Docusate Sodium [Senna Laxative Tablet] 8.6 mg PO DAILY PRN 12/04/17 [History] ondansetron HCL [Zofran] 4 mg PO Q6H PRN 12/04/17 [History] Acetaminophen [Tylenol Extra Strength] 500 mg PO Q6HR PRN 11/06/19 [History] Clobetasol [Clobetasol 0.05%] 1 applic TOP BEDTIME PRN 11/06/19 [History] Cyanocobalamin (Vitamin B-12) [B-12] 1,000 mcg PO DAILY 11/06/19 [History] Fish Oil/[place]-3 Fatty Acids [Fish Oil 1,000 MG] 1 gm PO DAILY 11/06/19 [History] Levothyroxine Sodium [Synthroid] 75 mcg PO DAILY 11/06/19 [History] Loperamide HCl [Imodium A-D] 2 tab PO QID PRN 11/06/19 [History] Polyvinyl Alcohol/Povidone/Pf [Refresh Classic Eye Drops] 1 drop EYEBOTH TID 11/06/19 [History] Warfarin Sodium [Coumadin] 7.5 mg PO MOTH 11/06/19 [History] ondansetron HCL [Zofran] 4 mg PO Q6HR PRN 11/06/19 [History] ramipriL [Altace] 5 mg PO DAILY 11/06/19 [History] traMADol [Ultram] 50 mg PO Q6HR PRN 11/06/19 [History] Furosemide [Lasix] 60 mg PO DAILY tablet 11/07/19 [Rx] Metoprolol Tartrate [Lopressor] 12.5 mg PO BID tablet 11/07/19 [Rx] ramipriL [Altace] 5 mg PO DAILY cap 11/07/19 [Rx] Forms: ED Department Discharge Referrals: PCP,None [Ordering Only Provider] - - Discharge Summary/Plan Comment DC Time >30 min.: No - Patient Data Vitals - Most Recent: Last Vital Signs Temp 97.9 F 11/07/19 08:00 Pulse 61 11/07/19 10:25 Resp 18 11/07/19 08:00 BP 132/80 11/07/19 10:25 Pulse Ox 94 L 11/07/19 08:00 Weight - Most Recent: 187 lb 4.8 oz I&O - Last 24 hours: Intake & Output 11/07/19 11/07/19 11/07/19 06:59 14:59 22:59 Output Total 700 Balance -700 Lab Results - Last 24 hrs: Laboratory Results - last 24 hr 11/06/19 11/06/19 11/07/19 Range/Units 14:00 21:00 06:10 PT 26.2 H (9.0-11.1) sec INR 2.59 H (1.00-1.24) Sodium 138 (135-145) mmol/L Potassium 3.4 L (3.5-5.3) mmol/L Chloride 98 L (100-110) mmol/L Carbon Dioxide 34 H (21-32) mmol/L BUN 23 H (7-18) mg/dL Creatinine 1.4 H (0.55-1.02) mg/dL Est Cr Clr Drug Dosing 24.18 mL/min Estimated GFR (MDRD) 36 L (>60) BUN/Creatinine Ratio 16.4 (9-20) Glucose 155 H (80-116) mg/dL Calcium 9.6 (8.6-10.2) mg/dL Troponin I 715.4 H* (4.0-60.3) pg/mL 11/07/19 11/07/19 11/07/19 Range/Units 06:10 06:10 15:30 PT 28.2 H (9.0-11.1) sec INR 2.79 H (1.00-1.24) Sodium (135-145) mmol/L Potassium (3.5-5.3) mmol/L Chloride (100-110) mmol/L Carbon Dioxide (21-32) mmol/L BUN (7-18) mg/dL Creatinine (0.55-1.02) mg/dL Est Cr Clr Drug Dosing mL/min Estimated GFR (MDRD) (>60) BUN/Creatinine Ratio (9-20) Glucose (80-116) mg/dL Calcium (8.6-10.2) mg/dL Troponin I 748.2 H* 664.5 H* (4.0-60.3) pg/mL Med Orders - Current: Current Medications Acetaminophen (Tylenol Extra Strength) 500 mg PO Q6H PRN PRN Reason: Pain Last Admin: 11/07/19 05:54 Dose: 500 mg Documented by: Artificial Tears (Refresh) 0 each EYEBOTH TID [facility] Last Admin: 11/07/19 16:16 Dose: Not Given Documented by: Aspirin (Halfprin) 81 mg PO DAILY [facility] Last Admin: 11/07/19 10:23 Dose: 81 mg Documented by: Citalopram Hydrobromide (Celexa) 10 mg PO DAILY [facility] Last Admin: 11/07/19 10:22 Dose: 10 mg Documented by: Clobetasol Propionate (Clobetasol Propionate 0.05%) 0 gm TOP BEDTIME PRN PRN Reason: Itching Cyanocobalamin (Vitamin B12) 1,000 mcg PO DAILY [facility] Last Admin: 11/07/19 10:28 Dose: 1,000 mcg Documented by: Fish Oil (Fish Oil) 1 gm PO DAILY [facility] Last Admin: 11/07/19 10:22 Dose: 1 gm Documented by: Furosemide (Lasix) 60 mg PO DAILY [facility] Last Admin: 11/07/19 10:23 Dose: 60 mg Documented by: Levothyroxine Sodium (Levothyroxine) 75 mcg PO ACBREAKFAST [facility] Last Admin: 11/07/19 06:37 Dose: 75 mcg Documented by: Loperamide HCl (Imodium) 2 mg PO QID PRN PRN Reason: Diarrhea Metoprolol Tartrate (Lopressor) 12.5 mg PO BID [facility] Last Admin: 11/07/19 10:25 Dose: 12.5 mg Documented by: Ondansetron HCl (Zofran Odt) 4 mg PO Q6H PRN PRN Reason: Nausea Pramipexole Dihydrochloride (Mirapex) 0.25 mg PO BID [facility] Last Admin: 11/07/19 10:29 Dose: 0.25 mg Documented by: Ramipril (Altace) 5 mg PO DAILY [facility] Last Admin: 11/07/19 10:19 Dose: 5 mg Documented by: Senna/Docusate Sodium (Senna Plus) 1 tab PO DAILY PRN PRN Reason: Constipation Sodium Chloride (Saline Flush) 10 ml FLUSH ASDIRECTED PRN PRN Reason: Keep Vein Open Last Admin: 11/06/19 16:50 Dose: 10 ml Documented by: Tramadol HCl (Ultram) 50 mg PO Q6H PRN PRN Reason: Pain Warfarin Sodium (Coumadin) 7.5 mg PO MoTh@1600 HEIDI Warfarin Sodium (Coumadin) 5 mg PO SuTuWeFrSa@1600 [facility] Last Admin: 11/06/19 17:33 Dose: 5 mg Documented by: Discontinued Medications Aspirin (Aspirin) 324 mg PO ONETIME ONE Stop: 11/06/19 15:00 Last Admin: 11/06/19 15:47 Dose: 324 mg Documented by: Furosemide (Lasix) 40 mg IVPUSH NOW ONE Stop: 11/06/19 13:07 Last Admin: 11/06/19 13:13 Dose: 40 mg Documented by: Furosemide (Lasix) 20 mg IVPUSH BID [facility] Furosemide (Lasix) 40 mg IVPUSH NOW ONE Stop: 11/06/19 16:21 Last Admin: 11/06/19 16:46 Dose: 40 mg Documented by: Furosemide (Lasix) 20 mg PO DAILY [facility] Labetalol HCl (Normodyne) 10 mg IVPUSH ONETIME ONE; Protocol Stop: 11/06/19 13:13 Last Admin: 11/06/19 13:20 Dose: 10 mg Documented by: Levothyroxine Sodium (Levothyroxine) 75 mcg PO DAILY [facility] Metoprolol Tartrate (Lopressor) 25 mg PO BID [facility] Last Admin: 11/06/19 20:35 Dose: 25 mg Documented by: Metoprolol Tartrate (Lopressor) 12.5 mg PO BID [facility] Non-Formulary Medication (Ondansetron Hcl [Zofran]) 4 mg PO Q6HR PRN PRN Reason: Nausea Non-Formulary Medication (Ramipril [Altace]) 5 mg PO DAILY [facility] Pramipexole Dihydrochloride (Mirapex) 0.25 mg PO BEDTIME [facility] Last Admin: 11/06/19 20:35 Dose: 0.25 mg Documented by: Pramipexole Dihydrochloride (Mirapex) 0.25 mg PO DAILY [facility] Last Admin: 11/07/19 10:40 Dose: Not Given Documented by: Pramipexole Dihydrochloride (Mirapex) 0.25 mg PO BID [facility] Last Admin: 11/07/19 10:40 Dose: Not Given Documented by: Ticagrelor (Brilinta) 180 mg PO ONETIME ONE Stop: 11/06/19 15:00 Last Admin: 11/06/19 17:32 Dose: 180 mg Documented by: Warfarin Sodium (Coumadin) Confirm Administered Dose 5 mg .ROUTE .STK-MED ONE Stop: 11/06/19 17:29 Last Admin: 11/06/19 17:34 Dose: Not Given Documented by:
--- NOTE | 2019-11-08 11:11 | CR ---
CHEST ONE VIEW INDICATION: Shortness of breath. AP upright portable view of the chest 11/06/2019 was compared with 06/14/2014 revealing a greater degree of CHF and interstitial lung edema than was present on the previous study, allowing for better inspiration on the current study. Unipolar pacemaker lead is now noted in place with its tip in the area of the apex of the right ventricle. Overlying EKG leads are noted. Median sternotomy is now seen. A definite consolidating pneumonia or effusion was not identified. However, there is some thickening of the minor fissure on the right suggesting minimal pleural effusion, and is difficult to exclude minimal patchy bronchopneumonia at the lung bases due to the heavy markings present. IMPRESSION: CHF with post median sternotomy change, pacemaker, cardiomegaly, tortuous aorta with calcification, cannot exclude minimal patchy pneumonia at the lung bases in addition to the CHF and interstitial lung edema. MTDD
[2019-11-08] MEDS ORDERED: Warfarin 2.5 MG Tab PO SCH (16:00)
== END 2019-11-07 18:00 | disposition home or self-care (01) | DRG 281 ==
LOC: FB.ED 12:32 → FB.MS 14:59
PROVIDERS: ADMIT Family Medicine; ATTEND Family Medicine
DX: I21.4 Non-ST elevation (NSTEMI) myocardial infarction (principal); I13.0 Hypertensive heart and chronic kidney disease with heart failure and stage 1 through stage 4 chronic kidney disease, or unspecified chronic kidney disease; I50.9 Heart failure, unspecified; M54.2 Cervicalgia; Z51.5 Encounter for palliative care; N18.9 Chronic kidney disease, unspecified; K21.9 Gastro-esophageal reflux disease without esophagitis; F32.9 Major depressive disorder, single episode, unspecified; Z66 Do not resuscitate; M19.90 Unspecified osteoarthritis, unspecified site; F42.9 Obsessive-compulsive disorder, unspecified; Z96.659 Presence of unspecified artificial knee joint; I48.0 Paroxysmal atrial fibrillation; Z98.49 Cataract extraction status, unspecified eye; Z98.84 Bariatric surgery status; D64.9 Anemia, unspecified; E03.9 Hypothyroidism, unspecified; Z20.828 Contact with and (suspected) exposure to other viral communicable diseases; Z95.0 Presence of cardiac pacemaker; Z88.0 Allergy status to penicillin; Z88.1 Allergy status to other antibiotic agents; Z88.8 Allergy status to other drugs, medicaments and biological substances; Z79.82 Long term (current) use of aspirin; Z79.01 Long term (current) use of anticoagulants; Z79.890 Hormone replacement therapy; Z79.899 Other long term (current) drug therapy; Z90.49 Acquired absence of other specified parts of digestive tract; Z95.1 Presence of aortocoronary bypass graft
CPT/HCPCS: 36415; 71045; 80053; 83880; 84484; 85025; 85610; 93005; J1940; J3490; U0002; 80048; 96374; 96375; 99285-25; A9270-GY

== ENCOUNTER 2020-05-27 23:34 | Observation (INO) | payer MEDICARE, BC ==
[2020-05-27] MEDS ORDERED: Sodium Chloride 0.9% 500 ML IV ONE (23:50)
[2020-05-27] MEDS ORDERED: Sodium Chloride 0.9% 10 ML Syringe FLUSH PRN (23:50)
[2020-05-27] MEDS ORDERED: HYDROmorphone 2 MG/ML SDV IVPUSH ONE (23:51)
--- NOTE | 2020-05-28 00:02 | EDM.PDOC ---
ED HPI GENERAL MEDICAL PROBLEM - General Chief Complaint: Back Pain or Injury Stated Complaint: BACK PAIN Time Seen by Provider: 05/27/20 23:55 Source of Information: Reports: Patient History Limitations: Reports: No Limitations - History of Present Illness INITIAL COMMENTS - FREE TEXT/NARRATIVE: Presents with worsening non-radiating low back pain since 05/25/20. Denies specific injury, but earlier in the day on 05/25/20, she had difficulty lifting a walker out of the trunk of her car. Patient awoke from a nap later that day with the low back pain. Pain has not improved after Tylenol. She also endorses chest pain yesterday evening, relieved with NTG SL. She currently denies chest pain, SOB, or abdominal pain. Patient lives alone. Onset Date: 05/25/20 Location: Reports: Back Quality: Reports: Ache Severity: Moderate Treatments [employer] DRILLING: Reports: Acetaminophen Lower back pain Pain Score (Numeric/FACES): 10 - Related Data Allergies Allergy/AdvReac Type Severity Reaction Status Date / Time amoxicillin trihydrate Allergy Diarrhea Verified 05/27/20 23:49 [From Augmentin] celecoxib [From Celebrex] Allergy Stomach Verified 05/27/20 23:49 Ache ciprofloxacin [From Cipro] Allergy Nausea Verified 05/27/20 23:49 ciprofloxacin HCl Allergy Nausea Verified 05/27/20 23:49 [From Cipro] hydrochlorothiazide Allergy Dizziness Verified 05/27/20 23:49 lisinopril Allergy Rash Verified 05/27/20 23:49 potassium clavulanate Allergy Diarrhea Verified 05/27/20 23:49 [From Augmentin] rofecoxib [From Vioxx] Allergy Stomach Verified 05/27/20 23:49 Ache Home Meds: Home Meds Citalopram [Citalopram HBr] 10 mg PO DAILY 06/14/14 [History] Aspirin [Ecotrin EC] 81 mg PO DAILY 05/05/16 [History] Metoprolol Tartrate 12.5 mg PO BID 05/05/16 [History] Pramipexole [Mirapex] 0.25 mg PO BEDTIME 05/05/16 [History] Warfarin Sodium 5 mg PO ASDIRECTED 05/05/16 [History] Sennosides/Docusate Sodium [Senna Laxative Tablet] 8.6 mg PO DAILY PRN 12/04/17 [History] ondansetron HCL [Zofran] 4 mg PO Q6H PRN 12/04/17 [History] Clobetasol [Clobetasol 0.05%] 1 applic TOP BEDTIME PRN 11/06/19 [History] Cyanocobalamin (Vitamin B-12) [B-12] 1,000 mcg PO DAILY 11/06/19 [History] Fish Oil/[place]-3 Fatty Acids [Fish Oil 1,000 MG] 1 gm PO DAILY 11/06/19 [History] Levothyroxine Sodium [Synthroid] 75 mcg PO DAILY 11/06/19 [History] ramipriL [Altace] 5 mg PO DAILY cap 11/07/19 [Rx] .Citracal Plus 2 tab PO TID 05/27/20 [History] Denosumab [Prolia] 1 dose .XX Q6M 05/27/20 [History] Furosemide [Lasix] 40 mg PO DAILY 05/27/20 [History] Loperamide HCl [Imodium A-D] 2 mg PO ASDIRECTED PRN 05/27/20 [History] Nitroglycerin 0.4 mg SL ASDIRECTED 05/27/20 [History] Tolterodine Tartrate 1 mg PO BID 05/27/20 [History] predniSONE [Prednisone] 20 mg PO DAILY 05/27/20 [History] .Ca Phosphate-Cholecalciferol 2 tab PO TID 05/28/20 [History] Acetaminophen [Tylenol Arthritis] 650 mg PO Q12H 05/28/20 [History] Past Medical History HEENT History: Reports: Cataract Cardiovascular History: Reports: Afib, Heart Failure, Hypertension, CT, Pacemaker Other Cardiovascular History: Non-stemi Other Respiratory History: smoker 20 years ago Gastrointestinal History: Reports: GERD Other Gastrointestinal History: by pass surgery 15 years ago as stated by Genitourinary History: Reports: Chronic Renal Insuffiency 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: Musculoskeletal History: Reports: Arthritis Other Musculoskeletal History: verbaizes history of arthritis in hands and back Psychiatric History: Reports: Depression Other Psychiatric History: confused and dizzy Endocrine/Metabolic History: Reports: Hypothyroidism Hematologic History: Reports: Anemia - Infectious Disease History Infectious Disease History: Reports: Chicken Pox, Measles, Mumps - Past Surgical History HEENT Surgical History: Reports: Cataract Surgery Cardiovascular Surgical History: Reports: Other (See Below) GI Surgical History: Reports: Bariatric Procedure, Cholecystectomy Other GI Surgeries/Procedures: 15 years ago Musculoskeletal Surgical History: Reports: Knee Replacement Social & Family History - Family History Family Medical History: No Pertinent Family History - Caffeine Use Caffeine Use: Reports: Coffee Other Caffeine Use: 3 Diet Cokes/day ED ROS GENERAL - Review of Systems Review Of Systems: Comprehensive ROS is negative, except as noted in HPI. ED EXAM,LOWER BACK PAIN/INJURY - Physical Exam Exam: See Below Exam Limited By: No Limitations General Appearance: Alert, WD/WN, Mild Distress Nose: Normal Inspection Throat/Mouth: No Airway Compromise Head: Atraumatic, Normocephalic Neck: Full Range of Motion Respiratory/Chest: No Respiratory Distress, Lungs Clear, Normal Breath Sounds Cardiovascular: Regular Rate, Rhythm, No Murmur GI/Abdominal: Soft, Non-Tender, No Distention Back Exam: Other (tenderness to lower back) Extremities: Normal Range of Motion Neurological: Alert, No Motor/Sensory Deficits, Oriented x 3 Skin Exam: Warm, Dry, Intact #1 Interpretation EKG Date: 05/28/20 Time: 23:42 Rhythm: NSR Rate (Beats/Min): 60 QRS: LBBB ST-T: Normal Comparison: No Change (11/06/19) Course - Vital Signs Last Recorded V/S: Last Vital Signs Temp 36.7 C 05/27/20 23:34 Pulse 60 05/28/20 01:52 Resp 18 05/28/20 01:52 BP 139/52 L 05/28/20 01:52 Pulse Ox 96 05/28/20 01:52 - Orders/Labs/Meds Orders: Active Orders 24 hr Category Date Time Status Admission Status [Patient Status] [ADT] Routine ADT 05/28/20 02:56 Active EKG Documentation Completion [RC] ASDIRECTED Care 05/27/20 23:49 Active Abdomen Pelvis wo Cont [CT] Stat Exams 05/28/20 00:49 Taken Lumbar Spine wo Cont [CT] Stat Exams 05/28/20 00:50 Taken CORONAVIRUS COVID-19 ANANYA [MOLEC] Stat Lab 05/28/20 02:59 Ordered UA W/MICROSCOPIC [URIN] Stat Lab 05/27/20 23:50 Ordered Sodium Chloride 0.9% [Saline Flush] Med 05/27/20 23:50 Active 10 ml FLUSH ASDIRECTED PRN Saline Lock Insert [OM.PC] Routine Oth 05/27/20 23:50 Ordered EKG 12 Lead [EK] Stat Ther 05/27/20 23:49 Ordered Medication Orders Sodium Chloride (Saline Flush) 10 ml FLUSH ASDIRECTED PRN PRN Reason: Keep Vein Open Last Admin: 05/28/20 00:04 Dose: 10 ml Documented by: AMOS Labs: Laboratory Tests 05/27/20 05/27/20 05/27/20 Range/Units 23:58 23:58 23:58 WBC 7.6 (3.0-10.3) x10-3/uL RBC 3.59 L (3.60-5.20) x10(6)uL Hgb 10.3 L (11.4-15.5) g/dL Hct 32.0 L (34.2-48.2) % MCV 89.3 (76.7-100.5) fL MCH 28.6 (23.9-33.9) pg MCHC 32.1 (31.9-34.8) g/dL RDW 14.4 (12.3-16.5) % Plt Count 228 (151-488) x10(3)uL MPV 8.1 (7.1-12.4) fL Neut % (Auto) 73.6 (30.8-76.2) % Lymph % (Auto) 10.6 L (18.4-52.1) % [place] % (Auto) 11.6 (4.4-15.7) % Eos % (Auto) 3.4 (0.6-8.1) % Baso % (Auto) 0.8 (0.2-1.5) % Neut # (Auto) 5.6 (1.5-6.3) x10-3/uL Lymph # (Auto) 0.8 L (1.0-4.4) x10-3/uL [place] # (Auto) 0.9 (0.3-1.0) x10-3/uL Eos # (Auto) 0.3 (0.0-0.8) x10-3/uL Baso # (Auto) 0.1 (0.0-0.1) x10-3/uL PT (9.0-11.1) sec INR (1.00-1.24) Sodium 138 (135-145) mmol/L Potassium 4.2 (3.5-5.3) mmol/L Chloride 102 (100-110) mmol/L Carbon Dioxide 27 (21-32) mmol/L BUN 33 H D (7-18) mg/dL Creatinine 1.8 H (0.55-1.02) mg/dL Est Cr Clr Drug Dosing 17.90 mL/min Estimated GFR (MDRD) 27 L (>60) BUN/Creatinine Ratio 18.3 (9-20) Glucose 110 (80-116) mg/dL Calcium 6.5 L* D (8.6-10.2) mg/dL Magnesium (1.8-2.5) mg/dL Total Bilirubin 0.5 (0.1-1.3) mg/dL AST 21 D (5-25) IU/L ALT 16 (12-36) U/L Alkaline Phosphatase 64 (56-112) IU/L Troponin I 174.7 H* (4.0-60.3) pg/mL Total Protein 7.1 (6.0-8.0) g/dL Albumin 3.2 (3.2-4.6) g/dL Globulin 3.9 g/dL Albumin/Globulin Ratio 0.8 05/27/20 05/28/20 05/28/20 Range/Units 23:58 01:44 02:20 WBC (3.0-10.3) x10-3/uL RBC (3.60-5.20) x10(6)uL Hgb (11.4-15.5) g/dL Hct (34.2-48.2) % MCV (76.7-100.5) fL MCH (23.9-33.9) pg MCHC (31.9-34.8) g/dL RDW (12.3-16.5) % Plt Count (151-488) x10(3)uL MPV (7.1-12.4) fL Neut % (Auto) (30.8-76.2) % Lymph % (Auto) (18.4-52.1) % [place] % (Auto) (4.4-15.7) % Eos % (Auto) (0.6-8.1) % Baso % (Auto) (0.2-1.5) % Neut # (Auto) (1.5-6.3) x10-3/uL Lymph # (Auto) (1.0-4.4) x10-3/uL [place] # (Auto) (0.3-1.0) x10-3/uL Eos # (Auto) (0.0-0.8) x10-3/uL Baso # (Auto) (0.0-0.1) x10-3/uL PT 22.5 H (9.0-11.1) sec INR 2.19 H (1.00-1.24) Sodium (135-145) mmol/L Potassium (3.5-5.3) mmol/L Chloride (100-110) mmol/L Carbon Dioxide (21-32) mmol/L BUN (7-18) mg/dL Creatinine (0.55-1.02) mg/dL Est Cr Clr Drug Dosing mL/min Estimated GFR (MDRD) (>60) BUN/Creatinine Ratio (9-20) Glucose (80-116) mg/dL Calcium (8.6-10.2) mg/dL Magnesium 2.4 (1.8-2.5) mg/dL Total Bilirubin (0.1-1.3) mg/dL AST (5-25) IU/L ALT (12-36) U/L Alkaline Phosphatase (56-112) IU/L Troponin I 167.7 H* (4.0-60.3) pg/mL Total Protein (6.0-8.0) g/dL Albumin (3.2-4.6) g/dL Globulin g/dL Albumin/Globulin Ratio 05/28/20 Range/Units 02:20 WBC (3.0-10.3) x10-3/uL RBC (3.60-5.20) x10(6)uL Hgb (11.4-15.5) g/dL Hct (34.2-48.2) % MCV (76.7-100.5) fL MCH (23.9-33.9) pg MCHC (31.9-34.8) g/dL RDW (12.3-16.5) % Plt Count (151-488) x10(3)uL MPV (7.1-12.4) fL Neut % (Auto) (30.8-76.2) % Lymph % (Auto) (18.4-52.1) % [place] % (Auto) (4.4-15.7) % Eos % (Auto) (0.6-8.1) % Baso % (Auto) (0.2-1.5) % Neut # (Auto) (1.5-6.3) x10-3/uL Lymph # (Auto) (1.0-4.4) x10-3/uL [place] # (Auto) (0.3-1.0) x10-3/uL Eos # (Auto) (0.0-0.8) x10-3/uL Baso # (Auto) (0.0-0.1) x10-3/uL PT (9.0-11.1) sec INR (1.00-1.24) Sodium (135-145) mmol/L Potassium (3.5-5.3) mmol/L Chloride (100-110) mmol/L Carbon Dioxide (21-32) mmol/L BUN (7-18) mg/dL Creatinine (0.55-1.02) mg/dL Est Cr Clr Drug Dosing mL/min Estimated GFR (MDRD) (>60) BUN/Creatinine Ratio (9-20) Glucose (80-116) mg/dL Calcium 6.6 L (8.6-10.2) mg/dL Magnesium (1.8-2.5) mg/dL Total Bilirubin (0.1-1.3) mg/dL AST (5-25) IU/L ALT (12-36) U/L Alkaline Phosphatase (56-112) IU/L Troponin I (4.0-60.3) pg/mL Total Protein (6.0-8.0) g/dL Albumin (3.2-4.6) g/dL Globulin g/dL Albumin/Globulin Ratio Meds: Medications Generic Name Dose Route Start Last Admin Trade Name Freq PRN Reason Stop Dose Admin Sodium Chloride 10 ml 05/27/20 23:50 05/28/20 00:04 Saline Flush FLUSH 10 ml ASDIRECTED PRN Administration Keep Vein Open Discontinued Medications Generic Name Dose Route Start Last Admin Trade Name Freq PRN Reason Stop Dose Admin Hydromorphone HCl 0.5 mg 05/27/20 23:51 05/28/20 00:05 Dilaudid IVPUSH 05/27/20 23:52 0.5 mg ONETIME ONE Administration Sodium Chloride 500 mls @ 500 mls/hr 05/27/20 23:50 05/28/20 00:05 Normal Saline IV 05/28/20 00:49 500 mls/hr .BOLUS ONE Administration - Radiology Interpretation Free Text/Narrative:: CT Abd/Pelvis s/ contrast: Impression: 1. A 5 mm stone in the distal right ureter. No hydronephrosis or renal edema. No additional renal stones. 2. Small fat containing umbilical and supraumbilical hernias. 3. Severe vertebral compression deformity at T11. Dictated by Zachariah Vidales MD @ May 28 2020 2:32AM ADDENDUM The T11 vertebral compression deformity may have an acute/subacute component. There is mild retropulsion of the superior posterior vertebral body margin causing mild spinal stenosis.Consider follow-up thoracic spine CT or MRI for better characterization. Dictated by Zachariah Vidales MD @ May 28 2020 2:33AM. CT L-spine s/ contrast: Impression: 1. No evidence of acute lumbar spine fracture. 2. Degenerative changes, as above. Dictated by Zachariah Vidales MD @ May 28 2020 2:32AM - Re-Assessments/Exams Free Text/Narrative Re-Assessment/Exam: 05/28/20 03:01 Pain improved after Dilaudid 0.5mg IV, but "still sore." Departure - Departure Time of Disposition: 03:02 Disposition: Refer to Observation Condition: Fair Clinical Impression: Intractable low back pain, Ureterolithiasis, Hypocalcemia Compression fracture of T11 vertebra Qualifiers: Encounter type: initial encounter Qualified Code(s): S22.080A - Wedge compression fracture of T11-T12 vertebra, initial encounter for closed fracture - Discharge Information *PRESCRIPTION DRUG MONITORING PROGRAM REVIEWED*: No *COPY OF PRESCRIPTION DRUG MONITORING REPORT IN PATIENT JIMMY: Not Applicable Referrals: Sherif Blackwood MD [Primary Care Provider] - Forms: ED Department Discharge Sepsis Event Note (ED) - Evaluation Sepsis Screening Result: No Definite Risk - Focused Exam Vital Signs: Vital Signs Temp Pulse Resp BP Pulse Ox 05/28/20 01:52 60 18 139/52 L 96 05/28/20 00:36 60 18 164/53 H 100 05/27/20 23:34 36.7 C 58 L 20 153/63 H 100 - My Orders Last 24 Hours: My Active Orders 05/27/20 23:49 EKG Documentation Completion [RC] ASDIRECTED EKG 12 Lead [EK] Stat 05/27/20 23:50 UA W/MICROSCOPIC [URIN] Stat Sodium Chloride 0.9% [Saline Flush] 10 ml FLUSH ASDIRECTED PRN Saline Lock Insert [OM.PC] Routine 05/28/20 00:49 Abdomen Pelvis wo Cont [CT] Stat 05/28/20 00:50 Lumbar Spine wo Cont [CT] Stat 05/28/20 02:56 Admission Status [Patient Status] [ADT] Routine 05/28/20 02:59 CORONAVIRUS COVID-19 ANANYA [MOLEC] Stat - Assessment/Plan Last 24 Hours: My Active Orders 05/27/20 23:49 EKG Documentation Completion [RC] ASDIRECTED EKG 12 Lead [EK] Stat 05/27/20 23:50 UA W/MICROSCOPIC [URIN] Stat Sodium Chloride 0.9% [Saline Flush] 10 ml FLUSH ASDIRECTED PRN Saline Lock Insert [OM.PC] Routine 05/28/20 00:49 Abdomen Pelvis wo Cont [CT] Stat 05/28/20 00:50 Lumbar Spine wo Cont [CT] Stat 05/28/20 02:56 Admission Status [Patient Status] [ADT] Routine 05/28/20 02:59 CORONAVIRUS COVID-19 ANANYA [MOLEC] Stat
[2020-05-28] MEDS ORDERED: HYDROmorphone 2 MG/ML SDV IVPUSH PRN (03:07)
[2020-05-28] MEDS ORDERED: Sodium Chloride 0.9% 1,000 ML IV SCH (03:15)
[2020-05-28] MEDS ORDERED: Nitroglycerin 0.4 MG Tab.SL SL PRN (03:15)
[2020-05-28] MEDS ORDERED: Acetaminophen 325 MG Tab PO PRN (03:21)
[2020-05-28] MEDS ORDERED: Cholecalciferol (Vitamin D3) 25 MCG Tab PO SCH (09:00)
[2020-05-28] MEDS ORDERED: TOLTERODINE TARTRATE 1 MG PO SCH (09:00)
[2020-05-28] MEDS ORDERED: Calcium Carbonate 500 MG Tablet PO SCH ×3 (09:00→21:00)
[2020-05-28] MEDS ORDERED: predniSONE 20 MG Tab PO SCH (09:00)
[2020-05-28] MEDS ORDERED: Warfarin Sliding Scale PO SCH (10:00)
[2020-05-28] MEDS: Ibuprofen 200 MG Tab PO SCH ×2 (12:30→18:06)
[2020-05-28] MEDS: Acetaminophen 325 MG Tab PO SCH ×2 (12:30→18:07)
--- NOTE | 2020-05-28 14:06 | PCM.HP.2 ---
H&P History of Present Illness - General Date of Service: 05/28/20 Admit Problem/Dx: Admission Diagnosis/Problem Admission Diagnosis/Problem Back pain, compression T11 fracture, ureterolithiasis, NSTEMI Source of Information: Patient, EMS Notes Reviewed - History of Present Illness Initial Comments - Free Text/Narative: Rena had non-radiating back pain started on 05/25 after a nap, she had troub le getting her walker out of the trunk earlier that day but did not feel a "pop" or that she injured herself. When she woke up from nap had the low back pain. Tends to have constipation. She had chest pain / in evening, took a nitroglycerin which resolved symptoms. Did not have chest pain, shortness of breath, nausea, sweating when present to ER yesterday. Noted on CT in ER, 5 mm and 2 mm ureteral stones on the right, also compression fracture of T11 but recommended MRI to determine is acute vs subacute. Troponin was elevated in ER, was trending down. EKG was unchanged from previous 11/06/2019, LBBB with junctional rhythm. Had Leukocyte esterase moderate, few bacteria on UA, culture is pending. History of gastric bypass. Her primary care is at [place], she is due to go there in the next month. She only sees local [facility] providers for acute care. Lower back pain Pain Score (Numeric/FACES): 2 - Related Data Allergies/Adverse Reactions: Allergies Allergy/AdvReac Type Severity Reaction Status Date / Time amoxicillin trihydrate Allergy Diarrhea Verified 05/27/20 23:49 [From Augmentin] celecoxib [From Celebrex] Allergy Stomach Verified 05/27/20 23:49 Ache ciprofloxacin [From Cipro] Allergy Nausea Verified 05/27/20 23:49 ciprofloxacin HCl Allergy Nausea Verified 05/27/20 23:49 [From Cipro] hydrochlorothiazide Allergy Dizziness Verified 05/27/20 23:49 lisinopril Allergy Rash Verified 05/27/20 23:49 potassium clavulanate Allergy Diarrhea Verified 05/27/20 23:49 [From Augmentin] rofecoxib [From Vioxx] Allergy Stomach Verified 05/27/20 23:49 Ache Home Medications: Home Meds Citalopram [Citalopram HBr] 10 mg PO DAILY 06/14/14 [History] Aspirin [Ecotrin EC] 81 mg PO DAILY 05/05/16 [History] Metoprolol Tartrate 12.5 mg PO BID 05/05/16 [History] Pramipexole [Mirapex] 0.25 mg PO BEDTIME 05/05/16 [History] Warfarin Sodium 5 mg PO ASDIRECTED 05/05/16 [History] Sennosides/Docusate Sodium [Senna Laxative Tablet] 8.6 mg PO DAILY PRN 12/04/17 [History] ondansetron HCL [Zofran] 4 mg PO Q6H PRN 12/04/17 [History] Clobetasol [Clobetasol 0.05%] 1 applic TOP BEDTIME PRN 11/06/19 [History] Cyanocobalamin (Vitamin B-12) [B-12] 1,000 mcg PO DAILY 11/06/19 [History] Fish Oil/[place]-3 Fatty Acids [Fish Oil 1,000 MG] 1 gm PO DAILY 11/06/19 [History] Levothyroxine Sodium [Synthroid] 75 mcg PO DAILY 11/06/19 [History] ramipriL [Altace] 5 mg PO DAILY cap 11/07/19 [Rx] Denosumab [Prolia] 1 dose .XX Q6M 05/27/20 [History] Furosemide [Lasix] 40 mg PO DAILY 05/27/20 [History] Loperamide HCl [Imodium A-D] 2 mg PO ASDIRECTED PRN 05/27/20 [History] Nitroglycerin 0.4 mg SL ASDIRECTED 05/27/20 [History] .Iron 65 mg PO BEDTIME 05/28/20 [History] .Vit D 400 intnl unit PO BEDTIME 05/28/20 [History] Acetaminophen [Tylenol Arthritis] 650 mg PO Q12H 05/28/20 [History] Calcium Carbonate [Calcium] 500 mg PO BEDTIME 05/28/20 [History] Magnesium 250 mg PO BEDTIME 05/28/20 [History] Past Medical History HEENT History: Reports: Cataract Cardiovascular History: Reports: Afib, Heart Failure, Hypertension, LA, Pacemaker Other Cardiovascular History: Non-stemi Other Respiratory History: smoker 20 years ago Gastrointestinal History: Reports: GERD Other Gastrointestinal History: by pass surgery 15 years ago as stated by Genitourinary History: Reports: Chronic Renal Insuffiency [employer] History: Reports: Other OB/BYN History: Musculoskeletal History: Reports: Arthritis, Osteoporosis Other Musculoskeletal History: verbaizes history of arthritis in hands and back Neurological History: Reports: Concussion Psychiatric History: Reports: Anxiety, Depression Other Psychiatric History: confused and dizzy Endocrine/Metabolic History: Reports: Hypothyroidism, Obesity/BMI 30+ Hematologic History: Reports: Anemia, Anticoagulation Therapy - Infectious Disease History Infectious Disease History: Reports: Chicken Pox, Measles, Mumps, Novel Coronavirus - Past Surgical History HEENT Surgical History: Reports: Cataract Surgery Other HEENT Surgeries/Procedures: bilat cataract Cardiovascular Surgical History: Reports: Other (See Below) Other Cardiovascular Surgeries/Procedures: states that patient had a valve placed 5 years ago. GI Surgical History: Reports: Bariatric Procedure, Cholecystectomy Other GI Surgeries/Procedures: 15 years ago Female Surgical History: Reports: Hysterectomy, Tubal Ligation Musculoskeletal Surgical History: Reports: Knee Replacement Other Musculoskeletal Surgeries/Procedures:: L knee replacement Social & Family History - Family History Family Medical History: No Pertinent Family History HEENT: Reports: None - Tobacco Use Tobacco Use Status *Q: Never Tobacco User Years of Tobacco use: 50 Used Tobacco, but Quit: Yes Month/Year Tobacco Last Used: 1989 Second Hand Smoke Exposure: No - Caffeine Use Caffeine Use: Reports: Coffee Other Caffeine Use: 3 Diet Cokes/day - Recreational Drug Use Recreational Drug Use: No H&P Review of Systems - Review of Systems: Review Of Systems: Comprehensive ROS is negative, except as noted in HPI. Exam - Exam Exam: See Below - Vital Signs Vital Signs: Last Vital Signs Temp 97.9 F 05/28/20 08:00 Pulse 60 05/28/20 08:00 Resp 18 05/28/20 08:00 BP 138/63 05/28/20 08:00 Pulse Ox 96 05/28/20 08:00 Weight: 188 lb 14.4 oz - Exam General: Alert, Oriented, Cooperative, Mild Distress (with movement) HEENT: PERRLA, Conjunctiva Clear, EOMI, Hearing Intact, Mucosa Moist & [place] Neck: Trachea Midline Lungs: Clear to Auscultation, Normal Respiratory Effort Cardiovascular: Regular Rate, Regular Rhythm GI/Abdominal Exam: Normal Bowel Sounds, Soft, No Distention, Guarding, Tender (BLQ) (Female) Exam: Deferred Rectal (Female) Exam: Deferred Back Exam: CVA Tenderness (R), CVA Tenderness (L), Vertebral Tenderness (T11-L2) Extremities: Pedal Edema (trace BLE) Peripheral Pulses: 2+: Radial (L), Radial (R) Neurological: Cranial Nerves Intact, Normal Speech, Normal Tone - Patient Data Lab Results Last 24 hrs: Laboratory Results - last 24 hr 05/27/20 05/27/20 05/27/20 Range/Units 23:58 23:58 23:58 WBC 7.6 (3.0-10.3) x10-3/uL RBC 3.59 L (3.60-5.20) x10(6)uL Hgb 10.3 L (11.4-15.5) g/dL Hct 32.0 L (34.2-48.2) % MCV 89.3 (76.7-100.5) fL MCH 28.6 (23.9-33.9) pg MCHC 32.1 (31.9-34.8) g/dL RDW 14.4 (12.3-16.5) % Plt Count 228 (151-488) x10(3)uL MPV 8.1 (7.1-12.4) fL Neut % (Auto) 73.6 (30.8-76.2) % Lymph % (Auto) 10.6 L (18.4-52.1) % Parmer % (Auto) 11.6 (4.4-15.7) % Eos % (Auto) 3.4 (0.6-8.1) % Baso % (Auto) 0.8 (0.2-1.5) % Neut # (Auto) 5.6 (1.5-6.3) x10-3/uL Lymph # (Auto) 0.8 L (1.0-4.4) x10-3/uL Parmer # (Auto) 0.9 (0.3-1.0) x10-3/uL Eos # (Auto) 0.3 (0.0-0.8) x10-3/uL Baso # (Auto) 0.1 (0.0-0.1) x10-3/uL PT (9.0-11.1) sec INR (1.00-1.24) Sodium 138 (135-145) mmol/L Potassium 4.2 (3.5-5.3) mmol/L Chloride 102 (100-110) mmol/L Carbon Dioxide 27 (21-32) mmol/L BUN 33 H D (7-18) mg/dL Creatinine 1.8 H (0.55-1.02) mg/dL Est Cr Clr Drug Dosing 17.90 mL/min Estimated GFR (MDRD) 27 L (>60) BUN/Creatinine Ratio 18.3 (9-20) Glucose 110 (80-116) mg/dL Calcium 6.5 L* D (8.6-10.2) mg/dL Magnesium (1.8-2.5) mg/dL Total Bilirubin 0.5 (0.1-1.3) mg/dL AST 21 D (5-25) IU/L ALT 16 (12-36) U/L Alkaline Phosphatase 64 (56-112) IU/L Troponin I 174.7 H* (4.0-60.3) pg/mL Total Protein 7.1 (6.0-8.0) g/dL Albumin 3.2 (3.2-4.6) g/dL Globulin 3.9 g/dL Albumin/Globulin Ratio 0.8 Urine Color (YELLOW) Urine Appearance (CLEAR) Urine pH (5.0-6.5) Ur Specific [place] (1.010-1.025) Urine Protein (NEGATIVE) mg/dL Urine Glucose (UA) (NORMAL) mg/dL Urine Ketones (NEGATIVE) mg/dL Urine Occult Blood (NEGATIVE) Urine Nitrite (NEGATIVE) Urine Bilirubin (NEGATIVE) Urine Urobilinogen (NEGATIVE) mg/dL Ur Leukocyte Esterase (NEGATIVE) Urine RBC (0-5) Urine WBC (0-5) Ur Squamous Epith Cells (NS,R,O) Urine Bacteria (NS) SARS-CoV-2 RNA (ANANYA) (NEGATIVE) 05/27/20 05/28/20 05/28/20 Range/Units 23:58 01:44 02:20 WBC (3.0-10.3) x10-3/uL RBC (3.60-5.20) x10(6)uL Hgb (11.4-15.5) g/dL Hct (34.2-48.2) % MCV (76.7-100.5) fL MCH (23.9-33.9) pg MCHC (31.9-34.8) g/dL RDW (12.3-16.5) % Plt Count (151-488) x10(3)uL MPV (7.1-12.4) fL Neut % (Auto) (30.8-76.2) % Lymph % (Auto) (18.4-52.1) % Parmer % (Auto) (4.4-15.7) % Eos % (Auto) (0.6-8.1) % Baso % (Auto) (0.2-1.5) % Neut # (Auto) (1.5-6.3) x10-3/uL Lymph # (Auto) (1.0-4.4) x10-3/uL Parmer # (Auto) (0.3-1.0) x10-3/uL Eos # (Auto) (0.0-0.8) x10-3/uL Baso # (Auto) (0.0-0.1) x10-3/uL PT 22.5 H (9.0-11.1) sec INR 2.19 H (1.00-1.24) Sodium (135-145) mmol/L Potassium (3.5-5.3) mmol/L Chloride (100-110) mmol/L Carbon Dioxide (21-32) mmol/L BUN (7-18) mg/dL Creatinine (0.55-1.02) mg/dL Est Cr Clr Drug Dosing mL/min Estimated GFR (MDRD) (>60) BUN/Creatinine Ratio (9-20) Glucose (80-116) mg/dL Calcium (8.6-10.2) mg/dL Magnesium 2.4 (1.8-2.5) mg/dL Total Bilirubin (0.1-1.3) mg/dL AST (5-25) IU/L ALT (12-36) U/L Alkaline Phosphatase (56-112) IU/L Troponin I 167.7 H* (4.0-60.3) pg/mL Total Protein (6.0-8.0) g/dL Albumin (3.2-4.6) g/dL Globulin g/dL Albumin/Globulin Ratio Urine Color (YELLOW) Urine Appearance (CLEAR) Urine pH (5.0-6.5) Ur Specific [place] (1.010-1.025) Urine Protein (NEGATIVE) mg/dL Urine Glucose (UA) (NORMAL) mg/dL Urine Ketones (NEGATIVE) mg/dL Urine Occult Blood (NEGATIVE) Urine Nitrite (NEGATIVE) Urine Bilirubin (NEGATIVE) Urine Urobilinogen (NEGATIVE) mg/dL Ur Leukocyte Esterase (NEGATIVE) Urine RBC (0-5) Urine WBC (0-5) Ur Squamous Epith Cells (NS,R,O) Urine Bacteria (NS) SARS-CoV-2 RNA (ANANYA) (NEGATIVE) 05/28/20 05/28/20 05/28/20 Range/Units 02:20 03:00 06:25 WBC (3.0-10.3) x10-3/uL RBC (3.60-5.20) x10(6)uL Hgb (11.4-15.5) g/dL Hct (34.2-48.2) % MCV (76.7-100.5) fL MCH (23.9-33.9) pg MCHC (31.9-34.8) g/dL RDW (12.3-16.5) % Plt Count (151-488) x10(3)uL MPV (7.1-12.4) fL Neut % (Auto) (30.8-76.2) % Lymph % (Auto) (18.4-52.1) % Parmer % (Auto) (4.4-15.7) % Eos % (Auto) (0.6-8.1) % Baso % (Auto) (0.2-1.5) % Neut # (Auto) (1.5-6.3) x10-3/uL Lymph # (Auto) (1.0-4.4) x10-3/uL Parmer # (Auto) (0.3-1.0) x10-3/uL Eos # (Auto) (0.0-0.8) x10-3/uL Baso # (Auto) (0.0-0.1) x10-3/uL PT (9.0-11.1) sec INR (1.00-1.24) Sodium (135-145) mmol/L Potassium (3.5-5.3) mmol/L Chloride (100-110) mmol/L Carbon Dioxide (21-32) mmol/L BUN (7-18) mg/dL Creatinine (0.55-1.02) mg/dL Est Cr Clr Drug Dosing mL/min Estimated GFR (MDRD) (>60) BUN/Creatinine Ratio (9-20) Glucose (80-116) mg/dL Calcium 6.6 L (8.6-10.2) mg/dL Magnesium (1.8-2.5) mg/dL Total Bilirubin (0.1-1.3) mg/dL AST (5-25) IU/L ALT (12-36) U/L Alkaline Phosphatase (56-112) IU/L Troponin I (4.0-60.3) pg/mL Total Protein (6.0-8.0) g/dL Albumin (3.2-4.6) g/dL Globulin g/dL Albumin/Globulin Ratio Urine Color Yellow (YELLOW) Urine Appearance Clear (CLEAR) Urine pH 5.0 (5.0-6.5) Ur Specific [place] 1.020 (1.010-1.025) Urine Protein Negative (NEGATIVE) mg/dL Urine Glucose (UA) Normal (NORMAL) mg/dL Urine Ketones Negative (NEGATIVE) mg/dL Urine Occult Blood Negative (NEGATIVE) Urine Nitrite Negative (NEGATIVE) Urine Bilirubin Negative (NEGATIVE) Urine Urobilinogen Normal (NEGATIVE) mg/dL Ur Leukocyte Esterase Moderate H (NEGATIVE) Urine RBC 0-5 (0-5) Urine WBC 0-5 (0-5) Ur Squamous Epith Cells Occasional (NS,R,O) Urine Bacteria Few H (NS) SARS-CoV-2 RNA (ANANYA) Negative (NEGATIVE) 05/28/20 05/28/20 05/28/20 Range/Units 06:45 06:45 12:00 WBC 6.1 (3.0-10.3) x10-3/uL RBC 3.49 L (3.60-5.20) x10(6)uL Hgb 10.4 L (11.4-15.5) g/dL Hct 31.4 L (34.2-48.2) % MCV 89.9 (76.7-100.5) fL MCH 29.8 (23.9-33.9) pg MCHC 33.1 (31.9-34.8) g/dL RDW 14.6 (12.3-16.5) % Plt Count 251 (151-488) x10(3)uL MPV 8.1 (7.1-12.4) fL Neut % (Auto) 67.1 (30.8-76.2) % Lymph % (Auto) 14.9 L (18.4-52.1) % Parmer % (Auto) 12.4 (4.4-15.7) % Eos % (Auto) 4.6 (0.6-8.1) % Baso % (Auto) 1.0 (0.2-1.5) % Neut # (Auto) 4.1 (1.5-6.3) x10-3/uL Lymph # (Auto) 0.9 L (1.0-4.4) x10-3/uL Parmer # (Auto) 0.8 (0.3-1.0) x10-3/uL Eos # (Auto) 0.3 (0.0-0.8) x10-3/uL Baso # (Auto) 0.1 (0.0-0.1) x10-3/uL PT 18.8 H (9.0-11.1) sec INR 1.81 H (1.00-1.24) Sodium 137 (135-145) mmol/L Potassium 4.0 (3.5-5.3) mmol/L Chloride 103 (100-110) mmol/L Carbon Dioxide 25 (21-32) mmol/L BUN 30 H (7-18) mg/dL Creatinine 1.7 H (0.55-1.02) mg/dL Est Cr Clr Drug Dosing 18.96 mL/min Estimated GFR (MDRD) 29 L (>60) BUN/Creatinine Ratio 17.6 (9-20) Glucose 121 H (80-116) mg/dL Calcium 7.3 L (8.6-10.2) mg/dL Magnesium (1.8-2.5) mg/dL Total Bilirubin (0.1-1.3) mg/dL AST (5-25) IU/L ALT (12-36) U/L Alkaline Phosphatase (56-112) IU/L Troponin I (4.0-60.3) pg/mL Total Protein (6.0-8.0) g/dL Albumin (3.2-4.6) g/dL Globulin g/dL Albumin/Globulin Ratio Urine Color (YELLOW) Urine Appearance (CLEAR) Urine pH (5.0-6.5) Ur Specific [place] (1.010-1.025) Urine Protein (NEGATIVE) mg/dL Urine Glucose (UA) (NORMAL) mg/dL Urine Ketones (NEGATIVE) mg/dL Urine Occult Blood (NEGATIVE) Urine Nitrite (NEGATIVE) Urine Bilirubin (NEGATIVE) Urine Urobilinogen (NEGATIVE) mg/dL Ur Leukocyte Esterase (NEGATIVE) Urine RBC (0-5) Urine WBC (0-5) Ur Squamous Epith Cells (NS,R,O) Urine Bacteria (NS) SARS-CoV-2 RNA (ANANYA) (NEGATIVE) Result Diagrams: 05/28/20 06:45 05/28/20 06:45 Sepsis Event Note - Evaluation Sepsis Screening Result: No Definite Risk - Focused Exam Vital Signs: Vital Signs Temp Pulse Resp BP BP Pulse Ox 05/28/20 08:00 97.9 F 60 18 138/63 96 05/28/20 04:15 60 L 05/28/20 04:06 59 L 18 118/52 L 98 *Q Meaningful Use (ADM) - VTE *Q VTE Mechanical Contraindications *Q: At Risk for Falls - VTE Risk Assess *Q Each Risk Factor Represents 1 Point: Obesity ( BMI > 25 kg/m2) Total Score 1 Point Risk Factors: 1 Each Risk Factor Represents 2 Points: None Total Score 2 Point Risk Factors: 0 Each Risk Factor Represents 3 Points: Age 75 Years or Greater Total Score 3 Point Risk Factors: 3 Each Risk Factor Represents 5 Points: None Total Score 5 Point Risk Factors: 0 Venous Thromboembolism Risk Factor Score *Q: 4 - Problem List (1) Compression fracture of T11 vertebra SNOMED Code(s): 038907091, 770005207 ICD Code: S22.080A - WEDGE COMPRESSION FRACTURE OF T11-T12 VERTEBRA, INIT Status: Acute Current Visit: Yes Qualifiers: Encounter type: initial encounter Qualified Code(s): S22.080A - Wedge compression fracture of T11-T12 vertebra, initial encounter for closed fracture (2) Hypocalcemia SNOMED Code(s): 8169897 ICD Code: E83.51 - HYPOCALCEMIA Status: Acute Current Visit: Yes (3) Intractable low back pain SNOMED Code(s): 92673665502417295 ICD Code: M54.5 - LOW BACK PAIN Status: Acute Current Visit: Yes (4) Ureterolithiasis SNOMED Code(s): 90552742 ICD Code: N20.1 - CALCULUS OF URETER Status: Acute Current Visit: Yes (5) Acute kidney injury SNOMED Code(s): 56045657, 53864189 ICD Code: N17.9 - ACUTE KIDNEY FAILURE, UNSPECIFIED Status: Acute Current Visit: No (6) NSTEMI (non-ST elevated myocardial infarction) SNOMED Code(s): 77496261 ICD Code: I21.4 - NON-ST ELEVATION (NSTEMI) MYOCARDIAL INFARCTION Status: Acute Current Visit: No Problem Details: Did not want to be transfer when in ER, medical managment. (7) Afib SNOMED Code(s): 24799837 ICD Code: I48.91 - UNSPECIFIED ATRIAL FIBRILLATION Status: Chronic Current Visit: No Problem Details: Currently in junctional rhythm. Qualifiers: Atrial fibrillation type: paroxysmal Qualified Code(s): I48.0 - Paroxysmal atrial fibrillation (8) HTN (hypertension) SNOMED Code(s): 39042932 ICD Code: I10 - ESSENTIAL (PRIMARY) HYPERTENSION Status: Chronic Current Visit: No Qualifiers: Hypertension type: essential hypertension Qualified Code(s): I10 - Ess ential (primary) hypertension (9) Pacemaker SNOMED Code(s): 592480754 ICD Code: Z95.0 - PRESENCE OF CARDIAC PACEMAKER Status: Acute Current Visit: No (10) Palliative care status SNOMED Code(s): 098345300 ICD Code: Z51.5 - ENCOUNTER FOR PALLIATIVE CARE Status: Acute Current Visit: No Problem List Initiated/Reviewed/Updated: Yes Orders Last 24hrs: Active Orders 24 hr Category Date Time Status Admission Status [Patient Status] [ADT] Routine ADT 05/28/20 02:56 Active Ambulate [RC] PER UNIT ROUTINE Care 05/28/20 03:09 Active EKG Documentation Completion [RC] ASDIRECTED Care 05/27/20 23:49 Active Height and Weight [RC] DAILY Care 05/28/20 03:07 Active Intake and Output [RC] QSHIFT Care 05/28/20 03:07 Active Notify Provider Vital Signs [RC] ASDIRECTED Care 05/28/20 03:08 Active Oxygen Therapy [RC] PRN Care 05/28/20 03:07 Active Pulse Oximetry [RC] PRN Care 05/28/20 03:07 Active Strain Urine [RC] ASDIRECTED Care 05/28/20 09:49 Active Up With Assistance [RC] ASDIRECTED Care 05/28/20 03:07 Active VTE/DVT Education [RC] Per Unit Routine Care 05/28/20 03:07 Active Vital Signs [RC] QSHIFT Care 05/28/20 03:07 Active Heart Healthy Diet [DIET] Diet 05/28/20 Breakfast Active Abdomen Pelvis wo Cont [CT] Stat Exams 05/28/20 00:49 Taken Lumbar Spine wo Cont [CT] Stat Exams 05/28/20 00:50 Taken Thoracic Spine Comp wo Cont [MR] Routine Exams 05/29/20 08:00 Ordered BASIC METABOLIC PANEL,BMP [CHEM] Routine Lab 05/29/20 06:00 Ordered CULTURE URINE [RM] Routine Lab 05/28/20 06:45 Received .Iron Med 05/28/20 21:00 Ordered 65 mg PO BEDTIME .Vit D Med 05/28/20 21:00 Ordered 400 intnl unit PO BEDTIME Acetaminophen [TylenoL] Med 05/28/20 12:15 Ordered 650 mg PO Q6H Aspirin [Halfprin] Med 05/28/20 09:00 Pending 81 mg PO DAILY Calcium Carbonate [Calcium] Med 05/28/20 21:00 Ordered 500 mg PO BEDTIME Citalopram [Celexa] Med 05/28/20 09:00 Pending 10 mg PO DAILY Cyanocobalamin (Vitamin B12) [Vitamin B12] Med 05/28/20 09:00 Pending 1,000 mcg PO DAILY Furosemide [Lasix] Med 05/28/20 09:00 Pending 40 mg PO DAILY HYDROmorphone [Dilaudid] Med 05/28/20 03:07 Active 0.5 mg IVPUSH Q4H PRN Ibuprofen [Motrin] Med 05/28/20 12:15 Active 200 mg PO Q6H Levothyroxine Med 05/28/20 09:00 Pending 75 mcg PO DAILY Magnesium [Magnesium] Med 05/28/20 21:00 Ordered 250 mg PO BEDTIME Metoprolol Tartrate [Lopressor] Med 05/28/20 09:00 Pending 12.5 mg PO BID Nitroglycerin [Nitrostat] Med 05/28/20 03:15 Pending 0.4 mg SL ASDIRECTED Pramipexole [Mirapex] Med 05/28/20 21:00 Pending 0.25 mg PO BEDTIME Sodium Chloride 0.9% [Normal Saline] 1,000 ml Med 05/28/20 03:15 Active IV ASDIRECTED Sodium Chloride 0.9% [Saline Flush] Med 05/27/20 23:50 Active 10 ml FLUSH ASDIRECTED PRN Warfarin Sliding Scale [Coumadin Sliding Scale] Med 05/28/20 10:00 Pending 1 each PO DAILY Warfarin [Coumadin] Med 05/28/20 03:15 Pending 5 mg PO ASDIRECTED ramipriL [Altace] Med 05/28/20 09:00 Pending 5 mg PO DAILY Saline Lock Insert [OM.PC] Routine Oth 05/27/20 23:50 Ordered Resuscitation Status Routine Resus Stat 05/28/20 03:07 Ordered EKG 12 Lead [EK] Stat Ther 05/27/20 23:49 Ordered Medication Orders Acetaminophen (Tylenol) 650 mg PO Q6H [facility]IDI Aspirin (Halfprin) 81 mg PO DAILY [facility] Citalopram Hydrobromide (Celexa) 10 mg PO DAILY [facility] Cyanocobalamin (Vitamin B12) 1,000 mcg PO DAILY [facility] Furosemide (Lasix) 40 mg PO DAILY [facility] Hydromorphone HCl (Dilaudid) 0.5 mg IVPUSH Q4H PRN PRN Reason: Pain (severe 7-10) Last Admin: 05/28/20 04:59 Dose: 0.5 mg Documented by: MAKAYLA Sodium Chloride (Normal Saline) 1,000 mls @ 75 mls/hr IV ASDIRECTED HEIDI Last Admin: 05/28/20 04:53 Dose: 75 mls/hr Documented by: MAKAYLA Ibuprofen (Motrin) 200 mg PO Q6H [facility] Levothyroxine Sodium (Levothyroxine) 75 mcg PO DAILY [facility] Metoprolol Tartrate (Lopressor) 12.5 mg PO BID [facility] Nitroglycerin (Nitrostat) 0.4 mg SL ASDIRECTED [facility] Non-Formulary Medication (.Iron) 65 mg PO BEDTIME [facility] Non-Formulary Medication (.Vit D) 400 intnl unit PO BEDTIME [facility] Non-Formulary Medication (Calcium Carbonate [Calcium]) 500 mg PO BEDTIME [facility] Non-Formulary Medication (Magnesium [Magnesium]) 250 mg PO BEDTIME [facility] Pramipexole Dihydrochloride (Mirapex) 0.25 mg PO BEDTIME [facility] Ramipril (Altace) 5 mg PO DAILY [facility] Sodium Chloride (Saline Flush) 10 ml FLUSH ASDIRECTED PRN PRN Reason: Keep Vein Open Last Admin: 05/28/20 00:04 Dose: 10 ml Documented by: AMOS Warfarin Sodium (Coumadin) 5 mg PO ASDIRECTED [facility] Warfarin Sodium (Coumadin Sliding Scale) 1 each PO DAILY [facility] Assessment/Plan Comment:: 1. Admit for observation for intractable back pain, ureterolithiasis, NSTEMI, Acute kidney injury. 2. Compression T11 fracture: acute vs subacute, MRI thoracic spine tomorrow. Tylenol & Motrin(200 mg) q6h, Dilaudid IV as needed breakthrough pain. 3. NSTEMI: On Metoprolol, Altace, Aspirin, Nitroglycerin as needed. 4. Ureterolithiasis/SHERIF: NS at 75 ml/hr, strain urine. Urine culture pending. 5. Heart healthy diet. 6. Ambulate: PT/OT evaluate & treat for Friday. 7. DVT prophylaxis: TEDs BLE. On Warfarin sliding scale, INR 1.8 today, pharmacy to dose. 8. CODE STATUS: FULL. Lives alone. - Mortality Measure Prognosis:: Good
[2020-05-28] MEDS: Cyanocobalamin (Vitamin B12) 1,000 MCG Tab PO SCH (14:30)
[2020-05-28] MEDS: Aspirin 81 MG Tab.EC **OWN MED PO SCH (15:53)
[2020-05-28] MEDS: CITALOPRAM 10 MG PO SCH (15:53)
[2020-05-28] MEDS: Furosemide 40 MG Tab **OWN MED PO SCH (15:53)
[2020-05-28] MEDS: Levothyroxine 75 MCG Tab **OWN MED PO SCH (15:54)
[2020-05-28] MEDS: Metoprolol Tartrate 25 MG Tab **OWN MED PO SCH ×2 (15:54→20:17)
[2020-05-28] MEDS: RAMIPRIL 5 MG PO SCH (15:55)
[2020-05-28] MEDS ORDERED: Warfarin 5 MG Tab **OWN MED PO SCH (16:00)
[2020-05-28] MEDS ORDERED: VITAMIN D PO SCH (21:00)
[2020-05-28] MEDS ORDERED: PRAMIPEXOLE 0.25 MG PO SCH (21:00)
[2020-05-28] MEDS ORDERED: FERROUS SULFATE 325 MG PO SCH (21:00)
[2020-05-29] MEDS: Acetaminophen 325 MG Tab PO SCH ×4 (01:49→11:15)
[2020-05-29] MEDS: Ibuprofen 200 MG Tab PO SCH ×4 (01:50→11:15)
[2020-05-29] MEDS ORDERED: Ibuprofen 200 MG Tab ONE (06:25)
[2020-05-29] MEDS ORDERED: Acetaminophen 325 MG Tab ONE (06:25)
[2020-05-29] MEDS ORDERED: traMADol 50 MG Tab PO PRN (09:03)
[2020-05-29] MEDS: Cyanocobalamin (Vitamin B12) 1,000 MCG Tab PO SCH (09:09)
[2020-05-29] MEDS: Aspirin 81 MG Tab.EC **OWN MED PO SCH (09:12)
[2020-05-29] MEDS: CITALOPRAM 10 MG PO SCH (09:12)
[2020-05-29] MEDS: Levothyroxine 75 MCG Tab **OWN MED PO SCH (09:13)
[2020-05-29] MEDS: Furosemide 40 MG Tab **OWN MED PO SCH (09:13)
[2020-05-29] MEDS: Metoprolol Tartrate 25 MG Tab **OWN MED PO SCH (09:13)
[2020-05-29] MEDS: RAMIPRIL 5 MG PO SCH (09:15)
[2020-05-29] MEDS ORDERED: Calcium Carbonate 500 MG Tablet PO SCH (09:15)
[2020-05-29 09:17] VITALS: BP 121/59; PULSE 59
[2020-05-29] MEDS ORDERED: Calcium Gluconate 10% 1 GM/10 ML SDV IVPUSH ONE (10:42)
[2020-05-29] MEDS ORDERED: DEXTROSE 5% IV ONE ×2 (11:30)
[2020-05-29] MEDS ORDERED: WATER IV ONE ×2 (11:30)
[2020-05-29] MEDS ORDERED: CALCIUM GLUCONATE IV ONE ×2 (11:30)
--- NOTE | 2020-05-29 13:34 | PCM.DCSUM1 ---
Discharge Summary - Hospital Course HPI Initial Comments: Rena had non-radiating back pain started on 05/25 after a nap, she had trouble getting her walker out of the trunk earlier that day but did not feel a "pop" or that she injured herself. When she woke up from nap had the low back pain. Tends to have constipation. She had chest pain / in evening, took a nitroglycerin which resolved symptoms. Did not have chest pain, shortness of breath, nausea, sweating when present to ER yesterday. Noted on CT in ER, 5 mm and 2 mm ureteral stones on the right, also compression fracture of T11 but recommended MRI to determine is acute vs subacute. Troponin was elevated in ER, was trending down. EKG was unchanged from previous 11/06/2019, LBBB with junctional rhythm. Had Leukocyte esterase moderate, few bacteria on UA, culture is pending. History of gastric bypass. Her primary care is at [place], she is due to go there in the next month. She only sees local providers for acute care. Diagnosis: Stroke: No - Discharge Data Discharge Date: 05/29/20 ([facility]) Discharge Disposition: Home, W Home Health Agency 06 Condition: Good - Referral to Home Health Date of Face to Face Encounter: 05/29/20 Reason for Homebound Status: limited mobility Primary Care Physician: Sherif Blackwood MD Skilled Need: PT/OT/cardiac rehab - Discharge Diagnosis/Problem(s) (1) Compression fracture of T11 vertebra SNOMED Code(s): 951706131, 740653555 ICD Code: S22.080A - WEDGE COMPRESSION FRACTURE OF T11-T12 VERTEBRA, INIT Status: Chronic Current Visit: Yes Onset Date: ~2014 Qualifiers: Encounter type: initial encounter Qualified Code(s): S22.080A - Wedge com pression fracture of T11-T12 vertebra, initial encounter for closed fracture (2) Hypocalcemia SNOMED Code(s): 4134172 ICD Code: E83.51 - HYPOCALCEMIA Status: Acute Current Visit: Yes (3) Intractable low back pain SNOMED Code(s): 97837327522916177 ICD Code: M54.5 - LOW BACK PAIN Status: Acute Current Visit: Yes (4) Ureterolithiasis SNOMED Code(s): 57497790 ICD Code: N20.1 - CALCULUS OF URETER Status: Acute Current Visit: Yes (5) Acute kidney injury SNOMED Code(s): 43248511, 79391235 ICD Code: N17.9 - ACUTE KIDNEY FAILURE, UNSPECIFIED Status: Acute Current Visit: No (6) NSTEMI (non-ST elevated myocardial infarction) SNOMED Code(s): 18493658 ICD Code: I21.4 - NON-ST ELEVATION (NSTEMI) MYOCARDIAL INFARCTION Status: Acute Current Visit: No Problem Details: Did not want to be transfer when in ER, medical managment. (7) Afib SNOMED Code(s): 66508080 ICD Code: I48.91 - UNSPECIFIED ATRIAL FIBRILLATION Status: Chronic Current Visit: No Problem Details: Currently in junctional rhythm. Qualifiers: Atrial fibrillation type: paroxysmal Qualified Code(s): I48.0 - Paroxysmal atrial fibrillation (8) HTN (hypertension) SNOMED Code(s): 36156017 ICD Code: I10 - ESSENTIAL (PRIMARY) HYPERTENSION Status: Chronic Current Visit: No Qualifiers: Hypertension type: essential hypertension Qualified Code(s): I10 - Essential (primary) hypertension (9) Pacemaker SNOMED Code(s): 011143427 ICD Code: Z95.0 - PRESENCE OF CARDIAC PACEMAKER Status: Acute Current Visit: No (10) Palliative care status SNOMED Code(s): 266579547 ICD Code: Z51.5 - ENCOUNTER FOR PALLIATIVE CARE Status: Acute Current Visit: No - Patient Summary/Data Consults: Consultations 05/29/20 08:41 PT Evaluation and Treatment [CONS] Routine Please Evaluate and Treat. PT Reason for Consult: back pain This query below is only for informational purposes and is not editable. Admission Diagnosis/Problem: Back pain Hospital Course: Admitted for observation for intractable back pain, ureterolithiasis, NSTEMI, hypocalcemia. She did not want invasive intervention for NSTEMI troponin 174.7, 167.7 so she not transferred to [place] from ER. She had chest pain on 05/24 but no chest pain in ER or throughout hospital course. No change to her Metoprolol, Altace, Warfarin, statin or aspirin therapy. Referral for cardiac rehab. Her calcium was normal in clinic last month, on Prolia, when she was in ER 6.5, came up to 7.4 then dropped again to 6.4 corrected for her albumin of 2.7, it is 7.4 today. She is symptomatic with neuropathy and abdominal pain but no muscle spasms or cramps. Increased oral Calcium to bid and gave Calcium gluconate 2 grams IV x 1. Phosphorus normal at 2.7, Magnesium 2.4. PTH and Vitamin D3 are pending. She had 2 ureteral stones on right: 2 mm & [address] abdomen/pelvis on admit, passed 2 mm stone 05/28, stone analysis is pending. IVF was discontinued yesterday as having diminished lung sounds, is clear today. Blood pressures have been well controlled so did not add Flomax for help with passing stone. Her creatinine was 1.9 on admission, down to 1.6 today. Has been getting Tylenol 650 mg q6h with Ibuprofen 200 mg q6h since admission. Last dose of Dilaudid 0.5 mg was 05/28 at 4:59 am, added Tramadol which she has had before as outpatient and tolerated as needed. Spoke with Randolph Hanson PA-C who she sees at [facility], he stated she had T11 compression back in 2014 so fracture is old, had ordered MRI thoracic spine as was unclear if acute or chronic, unable to do here with her pacemaker, since it is about 6 yrs old, will not refer her for MRI in [place]. Continue Tylenol & Ibuprofen scheduled for pain with Tramadol as needed for breakthrough pain until passes stone, if persists then may need urology referral. Encourage fluid intake. No nausea or vomiting during hospital stay. Tolerating diet well. PT evaluated and recommended outpatient rehab services through home health. - Patient Instructions Diet: Heart Healthy Diet Activity: As Tolerated Driving: Do Not Drive Showering/Bathing: May Shower Notify Provider of: Fever, Increased Pain, Nausea and/or Vomiting Other/Special Instructions: Follow up with Randolph Hanson PA-C at [facility] tomorrow 05/30, or 05/31 for recheck of your calcium, review labs done in hospital Vitamin D, PTH, kidney stone analysis. Make sure you have passed the second stone. Home Health for PT/OT and cardiac rehab for recent heart attack 05/24. Strain urine and if you passed stone, place in specimen cup that has been provided and bring to clinic appointment. - Discharge Plan *PRESCRIPTION DRUG MONITORING PROGRAM REVIEWED*: Yes *COPY OF PRESCRIPTION DRUG MONITORING REPORT IN PATIENT JIMMY: No Prescriptions/Med Rec: Ibuprofen [Motrin] 200 mg PO Q6H 10 Days #40 tablet Calcium Carbonate [Oyster Shell Calcium] 500 mg PO BID 30 Days #60 tablet Acetaminophen [Tylenol] 650 mg PO Q6H 5 Days #40 tablet traMADol [Ultram] 50 mg PO Q6H PRN 3 Days #12 tablet PRN Reason: Pain (Moderate 4-6) Home Medications: Home Meds Citalopram [Citalopram HBr] 10 mg PO DAILY 06/14/14 [History] Aspirin [Ecotrin EC] 81 mg PO DAILY 05/05/16 [History] Metoprolol Tartrate 12.5 mg PO BID 05/05/16 [History] Pramipexole [Mirapex] 0.25 mg PO BEDTIME 05/05/16 [History] Warfarin Sodium 5 mg PO ASDIRECTED 05/05/16 [History] Sennosides/Docusate Sodium [Senna Laxative Tablet] 8.6 mg PO DAILY PRN 12/04/17 [History] ondansetron HCL [Zofran] 4 mg PO Q6H PRN 12/04/17 [History] Clobetasol [Clobetasol 0.05%] 1 applic TOP BEDTIME PRN 11/06/19 [History] Cyanocobalamin (Vitamin B-12) [B-12] 1,000 mcg PO DAILY 11/06/19 [History] Fish Oil/Rigby-3 Fatty Acids [Fish Oil 1,000 MG] 1 gm PO DAILY 11/06/19 [History] Levothyroxine Sodium [Synthroid] 75 mcg PO DAILY 11/06/19 [History] ramipriL [Altace] 5 mg PO DAILY cap 11/07/19 [Rx] Denosumab [Prolia] 1 dose .XX Q6M 05/27/20 [History] Furosemide [Lasix] 40 mg PO DAILY 05/27/20 [History] Loperamide HCl [Imodium A-D] 2 mg PO ASDIRECTED PRN 05/27/20 [History] Nitroglycerin 0.4 mg SL ASDIRECTED 05/27/20 [History] .Iron 65 mg PO BEDTIME 05/28/20 [History] .Vit D 400 intnl unit PO BEDTIME 05/28/20 [History] Magnesium 250 mg PO BEDTIME 05/28/20 [History] Acetaminophen [Tylenol] 650 mg PO Q6H 5 Days #40 tablet 05/29/20 [Rx] Calcium Carbonate [Oyster Shell Calcium] 500 mg PO BID 30 Days #60 tablet 05/29/20 [Rx] Ibuprofen [Motrin] 200 mg PO Q6H 10 Days #40 tablet 05/29/20 [Rx] traMADol [Ultram] 50 mg PO Q6H PRN 3 Days #12 tablet 05/29/20 [Rx] Patient Handouts: Kidney Stones, [id number], Hypocalcemia, Adult, Lumbar Spine Fracture, Fall Prevention in Hospitals, Adult, Deep Vein Thrombosis Forms: ED Department Discharge Referrals: Sherif Blackwood MD [Primary Care Provider] - - Discharge Summary/Plan Comment DC Time >30 min.: Yes - General Info Date of Service: 05/29/20 Subjective Update: Rena has not required any IV Dilaudid since Friday morning. States pain is mainly below her waist. She had passed small stone yesterday afternoon, this was sent for analysis. Has numbness in her feet, states she can't move her left leg well since she had knee surgery on it which is why she pretty much sits at home and crochets. Doesn't remember last DEXA scan, she is listed to be on Prolia. Last Calcium at in Mar 2020 was was over 9. Talking with Randolph Hanson PA-C who saw her in March, she has had T11 fracture since 2014 per their charting. MRI was cancelled due to her pacemaker but was going to set her up in [place] for MRI but after speaking with Mr. Hanson, she will not need this referral. Functional Status: Reports: Pain Controlled, Tolerating Diet, Ambulating, Urinating. Denies: New Symptoms - Patient Data Vitals - Most Recent: Last Vital Signs Temp 98 F 05/29/20 08:00 Pulse 59 L 05/29/20 09:13 Resp 18 05/29/20 08:00 BP 121/59 L 05/29/20 09:13 Pulse Ox 98 05/29/20 08:00 Weight - Most Recent: 190 lb 6 oz I&O - Last 24 hours: Intake & Output 05/28/20 05/29/20 05/29/20 22:59 06:59 14:59 Intake Total 480 200 Output Total 800 Balance -320 200 Lab Results - Last 24 hrs: Laboratory Results - last 24 hr 05/29/20 05/29/20 05/29/20 Range/Units 06:30 06:30 06:30 PT 17.9 H (9.0-11.1) sec INR 1.72 H (1.00-1.24) Sodium 140 (135-145) mmol/L Potassium 4.6 (3.5-5.3) mmol/L Chloride 106 (100-110) mmol/L Carbon Dioxide 26 (21-32) mmol/L BUN 28 H (7-18) mg/dL Creatinine 1.6 H (0.55-1.02) mg/dL Est Cr Clr Drug Dosing 20.14 mL/min Estimated GFR (MDRD) 31 L (>60) BUN/Creatinine Ratio 17.5 (9-20) Glucose 91 (80-116) mg/dL Calcium 6.4 L* (8.6-10.2) mg/dL Phosphorus (2.6-4.6) mg/dL Albumin 2.7 L (3.2-4.6) g/dL 05/29/20 Range/Units 06:30 PT (9.0-11.1) sec INR (1.00-1.24) Sodium (135-145) mmol/L Potassium (3.5-5.3) mmol/L Chloride (100-110) mmol/L Carbon Dioxide (21-32) mmol/L BUN (7-18) mg/dL Creatinine (0.55-1.02) mg/dL Est Cr Clr Drug Dosing mL/min Estimated GFR (MDRD) (>60) BUN/Creatinine Ratio (9-20) Glucose (80-116) mg/dL Calcium (8.6-10.2) mg/dL Phosphorus 2.7 (2.6-4.6) mg/dL Albumin (3.2-4.6) g/dL SURESH Results - Last 24 hrs: Microbiology 05/28/20 06:45 Urine Culture - Preliminary Urine, Voided No Growth Med Orders - Current: Current Medications Acetaminophen (Tylenol) 650 mg PO Q6H [facility] Last Admin: 05/29/20 11:15 Dose: 650 mg Documented by: Aspirin (Halfprin) 81 mg PO DAILY [facility] Last Admin: 05/29/20 09:12 Dose: 81 mg Documented by: Calcium Carbonate/Glycine (Oyster Shell Calcium) 500 mg PO BID [facility] Last Admin: 05/29/20 10:09 Dose: 500 mg Documented by: Citalopram Hydrobromide (Celexa) 10 mg PO DAILY [facility] Last Admin: 05/29/20 09:12 Dose: 10 mg Documented by: Cyanocobalamin (Vitamin B12) 1,000 mcg PO DAILY [facility] Last Admin: 05/29/20 09:09 Dose: 1,000 mcg Documented by: Furosemide (Lasix) 40 mg PO DAILY [facility] Last Admin: 05/29/20 09:13 Dose: 40 mg Documented by: Calcium Gluconate 2 gm/ (Dextrose/Water) 120 mls @ 60 mls/hr IV ONETIME ONE Stop: 05/29/20 13:29 Last Admin: 05/29/20 11:15 Dose: 60 mls/hr Documented by: Ibuprofen (Motrin) 200 mg PO Q6H [facility] Last Admin: 05/29/20 11:15 Dose: 200 mg Documented by: Levothyroxine Sodium (Levothyroxine) 75 mcg PO DAILY [facility] Last Admin: 05/29/20 09:13 Dose: 75 mcg Documented by: Metoprolol Tartrate (Lopressor) 12.5 mg PO BID [facility] Last Admin: 05/29/20 09:13 Dose: 12.5 mg Documented by: Nitroglycerin (Nitrostat) 0.4 mg SL ASDIRECTED PRN PRN Reason: chest pain Ferrous Sulfate 325mg Tabs Own Med 0 mg PO BEDTIME [facility] Last Admin: 05/28/20 20:18 Dose: 325 mg Documented by: Vitamin D 400 Iunits (Own Med) 0 intnl unit PO BEDTIME [facility] Last Admin: 05/28/20 20:17 Dose: 400 intnl unit Documented by: Magnesium 250 Mg (Own Med) 0 mg PO BEDTIME [facility] Last Admin: 05/28/20 20:17 Dose: 250 mg Documented by: Ramipril 5mg Caps * (*Own Med) 0 each PO DAILY [facility] Last Admin: 05/29/20 09:15 Dose: 1 each Documented by: Pramipexole Dihydrochloride (Mirapex) 0.25 mg PO BEDTIME [facility] Last Admin: 05/28/20 20:16 Dose: 0.25 mg Documented by: Sodium Chloride (Saline Flush) 10 ml FLUSH ASDIRECTED PRN PRN Reason: Keep Vein Open Last Admin: 05/28/20 00:04 Dose: 10 ml Documented by: Tramadol HCl (Ultram) 50 mg PO Q6H PRN PRN Reason: Pain (moderate 4-6) Last Admin: 05/29/20 10:47 Dose: 50 mg Documented by: Warfarin Sodium (Coumadin) 5 mg PO DAILY@1600 HEIDI Last Admin: 05/28/20 17:00 Dose: 5 mg Documented by: Warfarin Sodium (Coumadin Sliding Scale) 1 each PO DAILY [facility] Discontinued Medications Acetaminophen (Tylenol) 650 mg PO Q6H PRN PRN Reason: Pain Last Admin: 05/28/20 04:55 Dose: 650 mg Documented by: Acetaminophen (Tylenol) Confirm Administered Dose 650 mg .ROUTE .STK-MED ONE Stop: 05/29/20 06:26 Last Admin: 05/29/20 06:37 Dose: Not Given Documented by: Calcium Carbonate/Glycine (Oyster Shell Calcium) 500 mg PO DAILY [facility] Calcium Carbonate/Glycine (Oyster Shell Calcium) 500 mg PO BID [facility] Calcium Carbonate/Glycine (Oyster Shell Calcium) 500 mg PO BEDTIME [facility] Last Admin: 05/28/20 20:16 Dose: 500 mg Documented by: Calcium Gluconate (Calcium Gluconate) 2 gm IVPUSH ONETIME ONE Stop: 05/29/20 10:43 Cholecalciferol (Vitamin D3) 25 mcg PO DAILY [facility] Hydromorphone HCl (Dilaudid) 0.5 mg IVPUSH ONETIME ONE Stop: 05/27/20 23:52 Last Admin: 05/28/20 00:05 Dose: 0.5 mg Documented by: Hydromorphone HCl (Dilaudid) 0.5 mg IVPUSH Q4H PRN PRN Reason: Pain (severe 7-10) Last Admin: 05/28/20 04:59 Dose: 0.5 mg Documented by: Sodium Chloride (Normal Saline) 500 mls @ 500 mls/hr IV .BOLUS ONE Stop: 05/28/20 00:49 Last Admin: 05/28/20 00:05 Dose: 500 mls/hr Documented by: Sodium Chloride (Normal Saline) 1,000 mls @ 75 mls/hr IV ASDIRECTED [facility] Last Admin: 05/28/20 04:53 Dose: 75 mls/hr Documented by: Ibuprofen (Motrin) Confirm Administered Dose 200 mg .ROUTE .STK-MED ONE Stop: 05/29/20 06:26 Last Admin: 05/29/20 06:37 Dose: Not Given Documented by: Non-Formulary Medication (Tolterodine Tartrate [Tolterodine Tartrate]) 1 mg PO BID [facility] Prednisone (Prednisone) 20 mg PO DAILY HEIDI - Exam General: Reports: Alert, Oriented, Cooperative, No Acute Distress Lungs: Reports: Clear to Auscultation, Normal Respiratory Effort. Denies: Crackles, Wheezing Cardiovascular: Reports: Regular Rate, Regular Rhythm GI/Abdominal Exam: Normal Bowel Sounds, Soft, No Distention, Tender (mild TTP RLQ>LLQ). No: Guarding, Rigid, Rebound (Female) Exam: Deferred Rectal (Female) Exam: Deferred Back Exam: Denies: CVA Tenderness (R), CVA Tenderness (L), Muscle Spasm Extremities: Pedal Edema (trace BLE) Skin: Reports: Warm, Dry, Intact *Q Meaningful Use (DIS) - VTE *Q VTE Mechanical Contraindications *Q: At Risk for Falls
[2020-06-02 20:13] LABS: SIZE <1 mm (.); WEIGHT <1 mg (.)
== END 2020-05-29 14:10 | disposition home health service (06) ==
LOC: FB.ED 23:34 → FB.MS 05-28 03:02
PROVIDERS: ADMIT Emergency Medicine; ATTEND Family Medicine
DX: S22.080A Wedge compression fracture of T11-T12 vertebra, initial encounter for closed fracture (principal); I13.0 Hypertensive heart and chronic kidney disease with heart failure and stage 1 through stage 4 chronic kidney disease, or unspecified chronic kidney disease; N18.9 Chronic kidney disease, unspecified; I50.9 Heart failure, unspecified; Z20.822 Contact with and (suspected) exposure to COVID-19; E03.9 Hypothyroidism, unspecified; E66.9 Obesity, unspecified; Z68.37 Body mass index [BMI] 37.0-37.9, adult; D64.9 Anemia, unspecified; I44.7 Left bundle-branch block, unspecified; I21.4 Non-ST elevation (NSTEMI) myocardial infarction; M81.0 Age-related osteoporosis without current pathological fracture; K21.9 Gastro-esophageal reflux disease without esophagitis; I48.91 Unspecified atrial fibrillation; R77.8 Other specified abnormalities of plasma proteins; N20.1 Calculus of ureter; K42.9 Umbilical hernia without obstruction or gangrene; N28.1 Cyst of kidney, acquired; M43.16 Spondylolisthesis, lumbar region; M48.07 Spinal stenosis, lumbosacral region; M51.36 Other intervertebral disc degeneration, lumbar region; Z88.1 Allergy status to other antibiotic agents; Z88.8 Allergy status to other drugs, medicaments and biological substances; Z79.01 Long term (current) use of anticoagulants; Z79.82 Long term (current) use of aspirin; Z79.890 Hormone replacement therapy; Z86.16 Personal history of COVID-19; Z87.891 Personal history of nicotine dependence; Z95.0 Presence of cardiac pacemaker; Z98.84 Bariatric surgery status; Z98.890 Other specified postprocedural states; X58.XXXA Exposure to other specified factors, initial encounter
CPT/HCPCS: 36415; 72131; 74176; 80048; 80053; 81001; 82040; 82306; 82310; 82365; 83735; 83970; 84100; 84484; 85025; 85610; 87086; 93005; 93010; 94760; 96365; 96366; 96375; 96376; 97161; 99285; A9270; G0378; J0610; J1170; J7030; J7040; U0002; 96374

== ENCOUNTER 2020-05-31 17:30 | Emergency (ER) | payer MEDICARE, BC ==
[2020-05-31] MEDS ORDERED: Sodium Chloride 0.9% 10 ML Syringe FLUSH PRN (17:53)
[2020-05-31] MEDS ORDERED: Acetaminophen/oxyCODONE 325-5 MG Tab PO STA (18:48)
--- NOTE | 2020-05-31 19:18 | CT ---
INDICATION: Right flank pain, nausea. CT ABDOMEN AND PELVIS WITHOUT CONTRAST: Spiral 2.5 mm axial sections were obtained through the abdomen and pelvis with renal calculus protocol - no contrast - sagittal and coronal reconstructions, 05/31/20 and compared with 05/28/20. Total exam DLP was 1043.87 mGy-cm. The heart is enlarged with valvular calcifications and pacemaker leads. No pericardial effusion was seen. There are again noted some linear densities at the lung bases, compatible with mild fibrosis and/or atelectasis. Postsurgical changes in the epigastrium suggest a previous gastric bypass surgery. The gallbladder is absent, compatible with history of its removal with clips at the cystic duct. The liver appeared normal in density with no definite focal liver lesions. The calculus in the distal ureter on the previous study just above the ureterovesical junction on the right appears to have only moved distally a very minimal degree. The ureter and collecting system do not appear significantly dilated however, with what appears to be a cystic mass on the right measuring approximately 26 mm at the lower pole of the right kidney. There is a possibly dystropic calcification in the upper pole of the right kidney again present, which does not appear to be within a calyx. No renal fascial thickening is identified to strongly suggest a significant obstructive process. Compression fracture, vacuum disk phenomena and some hypertrophic degenerative changes are noted in the thoracolumbosacral spine with vacuum disk phenomena at most levels and little change compared with the previous study except for new vacuum disk phenomenon at L4-5, not present on the previous study. The appendix is not definitely visualized. There is a clip at the cecum suggesting appendectomy. No evidence of free air or bowel obstruction was identified. The urinary bladder was unremarkable with no calculi seen. The uterus is absent, compatible with history of its removal. Umbilical hernia is again noted of small size including only fat with additional very small ventral hernia superior to the umbilicus again noted. IMPRESSION: 1. No findings to strongly suggest obstructive uropathy despite the presence of a calcification associated with the distal right ureter. This may be a closely applied phlebolith adjacent to the distal right ureter - no definite obstructive uropathy is seen on the current study - no hydronephrosis or hydroureter is present - no renal fascial thickening to suggest obstruction is seen. 2. Probable simple cyst of the left kidney lower pole measuring approximately 26 mm. 3. ASD/ASHD with cardiomegaly. 4. Probable post gastric bypass surgery. 5. Postcholecystectomy. 6. Postappendectomy. 7. Posthysterectomy. 8. Degenerative changes, stable compression fracture, disk disease thoracolumbosacral spine. Report was called to Dr. Marquez at 1858 hours. [facility]
--- NOTE | 2020-05-31 19:24 | EDM.PDOC ---
ED HPI GENERAL MEDICAL PROBLEM - General Chief Complaint: Flank Pain Stated Complaint: ABNORMAL LABS Time Seen by Provider: 05/31/20 17:50 Source of Information: Reports: Patient History Limitations: Reports: No Limitations - History of Present Illness INITIAL COMMENTS - FREE TEXT/NARRATIVE: Patient presented to the ED because of an elevated K+ which is 6.1 and they called her to go to the ED for evaluation. She also c/o low back pain and rt flank pain which are old and she is taking tramadol 50 mg for it. She was diagnosed with Nephrolithiasis, NSTEMI, DHN,SHERIF, T11 compression fracture on 05/28/20. She denies having any chest pain or palpitations, N/V,or dyspnea. She said she is feeling fine. Treatments SHACTOR HELPER: Reports: Other (see below) Other Treatments SHACTOR HELPER: Tramadol Lower back pain Pain Score (Numeric/FACES): 8 - Related Data Allergies Allergy/AdvReac Type Severity Reaction Status Date / Time amoxicillin trihydrate Allergy Diarrhea Verified 05/31/20 17:55 [From Augmentin] celecoxib [From Celebrex] Allergy Stomach Verified 05/31/20 17:55 Ache ciprofloxacin [From Cipro] Allergy Nausea Verified 05/31/20 17:55 ciprofloxacin HCl Allergy Nausea Verified 05/31/20 17:55 [From Cipro] hydrochlorothiazide Allergy Dizziness Verified 05/31/20 17:55 lisinopril Allergy Rash Verified 05/31/20 17:55 potassium clavulanate Allergy Diarrhea Verified 05/31/20 17:55 [From Augmentin] rofecoxib [From Vioxx] Allergy Stomach Verified 05/31/20 17:55 Ache Home Meds: Home Meds Citalopram [Citalopram HBr] 10 mg PO DAILY 06/14/14 [History] Aspirin [Ecotrin EC] 81 mg PO DAILY 05/05/16 [History] Metoprolol Tartrate 12.5 mg PO BID 05/05/16 [History] Pramipexole [Mirapex] 0.25 mg PO BEDTIME 05/05/16 [History] Warfarin Sodium 5 mg PO ASDIRECTED 05/05/16 [History] Sennosides/Docusate Sodium [Senna Laxative Tablet] 8.6 mg PO DAILY PRN 12/04/17 [History] ondansetron HCL [Zofran] 4 mg PO Q6H PRN 12/04/17 [History] Clobetasol [Clobetasol 0.05%] 1 applic TOP BEDTIME PRN 11/06/19 [History] Cyanocobalamin (Vitamin B-12) [B-12] 1,000 mcg PO DAILY 11/06/19 [History] Fish Oil/[place]-3 Fatty Acids [Fish Oil 1,000 MG] 1 gm PO DAILY 11/06/19 [History] Levothyroxine Sodium [Synthroid] 75 mcg PO DAILY 11/06/19 [History] ramipriL [Altace] 5 mg PO DAILY cap 11/07/19 [Rx] Denosumab [Prolia] 1 dose .XX Q6M 05/27/20 [History] Furosemide [Lasix] 40 mg PO DAILY 05/27/20 [History] Loperamide HCl [Imodium A-D] 2 mg PO ASDIRECTED PRN 05/27/20 [History] Nitroglycerin 0.4 mg SL ASDIRECTED 05/27/20 [History] .Iron 65 mg PO BEDTIME 05/28/20 [History] .Vit D 400 intnl unit PO BEDTIME 05/28/20 [History] Magnesium 250 mg PO BEDTIME 05/28/20 [History] Acetaminophen [Tylenol] 650 mg PO Q6H 5 Days #40 tablet 05/29/20 [Rx] Calcium Carbonate [Oyster Shell Calcium] 500 mg PO BID 30 Days #60 tablet 05/29/20 [Rx] Ibuprofen [Motrin] 200 mg PO Q6H 10 Days #40 tablet 05/29/20 [Rx] traMADol [Ultram] 50 mg PO Q6H PRN 3 Days #12 tablet 05/29/20 [Rx] Acetaminophen/oxyCODONE [Percocet 325-5 MG] 1 each PO Q4H PRN #10 tab 05/31/20 [Rx] Past Medical History HEENT History: Reports: Cataract Cardiovascular History: Reports: Afib, Heart Failure, Hypertension, [place], Pacemaker Other Cardiovascular History: Non-stemi Other Respiratory History: smoker 20 years ago Gastrointestinal History: Reports: GERD Other Gastrointestinal History: by pass surgery 15 years ago as stated by Genitourinary History: Reports: Chronic Renal Insuffiency, Renal Calculus 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: Reports: Other 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: Musculoskeletal History: Reports: Arthritis, Osteoporosis Other Musculoskeletal History: verbaizes history of arthritis in hands and back Neurological History: Reports: Concussion Psychiatric History: Reports: Anxiety, Depression Other Psychiatric History: confused and dizzy Endocrine/Metabolic History: Reports: Hypothyroidism, Obesity/BMI 30+ Hematologic History: Reports: Anemia, Anticoagulation Therapy - Infectious Disease History Infectious Disease History: Reports: Chicken Pox, Measles, Mumps, Novel Coronavirus - Past Surgical History HEENT Surgical History: Reports: Cataract Surgery Other HEENT Surgeries/Procedures: bilat cataract Cardiovascular Surgical History: Reports: Other (See Below) Other Cardiovascular Surgeries/Procedures: states that patient had a valve placed 5 years ago. GI Surgical History: Reports: Bariatric Procedure, Cholecystectomy Other GI Surgeries/Procedures: 15 years ago Female Surgical History: Reports: Hysterectomy, Tubal Ligation Musculoskeletal Surgical History: Reports: Knee Replacement Other Musculoskeletal Surgeries/Procedures:: L knee replacement Social & Family History - Family History Family Medical History: No Pertinent Family History HEENT: Reports: None - Tobacco Use Tobacco Use Status *Q: Former Tobacco User Used Tobacco, but Quit: Yes Month/Year Tobacco Last Used: apr - Caffeine Use Caffeine Use: Reports: Coffee Other Caffeine Use: 3 Diet Cokes/day - Recreational Drug Use Recreational Drug Use: No ED ROS GENERAL - Review of Systems Review Of Systems: See Below Constitutional: Reports: No Symptoms HEENT: Reports: No Symptoms Respiratory: Reports: No Symptoms Cardiovascular: Reports: No Symptoms GI/Abdominal: Reports: No Symptoms : Reports: No Symptoms Musculoskeletal: Reports: Back Pain Skin: Reports: No Symptoms Neurological: Reports: No Symptoms Psychiatric: Reports: No Symptoms ED EXAM, GI/ABD - Physical Exam Exam: See Below Exam Limited By: No Limitations General Appearance: Alert, No Apparent Distress Ears: Normal External Exam, Normal Canal Throat/Mouth: Normal Inspection, Normal Lips Head: Atraumatic, Normocephalic Neck: Normal Inspection, Supple, Non-Tender, Full Range of Motion Respiratory/Chest: No Respiratory Distress, Lungs Clear, Normal Breath Sounds Cardiovascular: Normal Peripheral Pulses, Regular Rate, Rhythm, No Edema, No Gallop GI/Abdominal Exam: Normal Bowel Sounds, Soft, Non-Tender, No Organomegaly, No Distention, No Abnormal Bruit Back Exam: Muscle Spasm, Vertebral Tenderness Extremities: Normal Inspection, Normal Range of Motion, Non-Tender, No Pedal Edema Course - Vital Signs Text/Narrative:: Labs result was discussed with patient and family member Her repeat K+ was 5.3 which is normal Percocet 5/325 1 po x1 dose Her troponin is going down as well from 167.7 to 157.9 Since she is stable enough to hydrate herself at home I told her to take at least 1-1.5 L of fluid a day and to hold aspirin,ibuprofen, furosemide while her kidney is recovering and to see her doctor on Friday to repeat her renal function an she fully understood this with her family member. Last Recorded V/S: Last Vital Signs Temp 36.6 C 05/31/20 17:40 Pulse 59 L 05/31/20 19:00 Resp 18 05/31/20 19:00 BP 136/57 L 05/31/20 19:00 Pulse Ox 100 05/31/20 19:00 - Orders/Labs/Meds Orders: Active Orders 24 hr Category Date Time Status Saline Lock Insert [OM.PC] Routine Oth 05/31/20 17:53 Ordered EKG 12 Lead [EK] Routine Ther 05/31/20 17:53 Stop Req Labs: Laboratory Tests 05/31/20 05/31/20 05/31/20 Range/Units 18:10 18:10 18:10 WBC 5.5 (3.0-10.3) x10-3/uL RBC 3.41 L (3.60-5.20) x10(6)uL Hgb 9.7 L (11.4-15.5) g/dL Hct 30.0 L (34.2-48.2) % MCV 88.0 (76.7-100.5) fL MCH 28.5 (23.9-33.9) pg MCHC 32.4 (31.9-34.8) g/dL RDW 14.4 (12.3-16.5) % Plt Count 272 (151-488) x10(3)uL MPV 7.6 (7.1-12.4) fL Neut % (Auto) 65.5 (30.8-76.2) % Lymph % (Auto) 14.7 L (18.4-52.1) % [place] % (Auto) 12.5 (4.4-15.7) % Eos % (Auto) 6.1 (0.6-8.1) % Baso % (Auto) 1.2 (0.2-1.5) % Neut # (Auto) 3.6 (1.5-6.3) x10-3/uL Lymph # (Auto) 0.8 L (1.0-4.4) x10-3/uL [place] # (Auto) 0.7 (0.3-1.0) x10-3/uL Eos # (Auto) 0.3 (0.0-0.8) x10-3/uL Baso # (Auto) 0.1 (0.0-0.1) x10-3/uL PT (9.0-11.1) sec INR (1.00-1.24) Sodium 133 L (135-145) mmol/L Potassium 5.3 (3.5-5.3) mmol/L Chloride 99 L D (100-110) mmol/L Carbon Dioxide 26 (21-32) mmol/L BUN 48 H D (7-18) mg/dL Creatinine 2.9 H* (0.55-1.02) mg/dL Est Cr Clr Drug Dosing 11.11 mL/min Estimated GFR (MDRD) 16 L (>60) BUN/Creatinine Ratio 16.6 (9-20) Glucose 97 (80-116) mg/dL Calcium 7.7 L (8.6-10.2) mg/dL Total Bilirubin 0.3 (0.1-1.3) mg/dL AST 21 (5-25) IU/L ALT 15 (12-36) U/L Alkaline Phosphatase 68 (56-112) IU/L Troponin I 157.5 H* (4.0-60.3) pg/mL Total Protein 7.5 (6.0-8.0) g/dL Albumin 3.3 (3.2-4.6) g/dL Globulin 4.2 g/dL Albumin/Globulin Ratio 0.8 /17/ Range/Units 18:10 WBC (3.0-10.3) x10-3/uL RBC (3.60-5.20) x10(6)uL Hgb (11.4-15.5) g/dL Hct (34.2-48.2) % MCV (76.7-100.5) fL MCH (23.9-33.9) pg MCHC (31.9-34.8) g/dL RDW (12.3-16.5) % Plt Count (151-488) x10(3)uL MPV (7.1-12.4) fL Neut % (Auto) (30.8-76.2) % Lymph % (Auto) (18.4-52.1) % [place] % (Auto) (4.4-15.7) % Eos % (Auto) (0.6-8.1) % Baso % (Auto) (0.2-1.5) % Neut # (Auto) (1.5-6.3) x10-3/uL Lymph # (Auto) (1.0-4.4) x10-3/uL [place] # (Auto) (0.3-1.0) x10-3/uL Eos # (Auto) (0.0-0.8) x10-3/uL Baso # (Auto) (0.0-0.1) x10-3/uL PT 29.9 H (9.0-11.1) sec INR 2.97 H (1.00-1.24) Sodium (135-145) mmol/L Potassium (3.5-5.3) mmol/L Chloride (100-110) mmol/L Carbon Dioxide (21-32) mmol/L BUN (7-18) mg/dL Creatinine (0.55-1.02) mg/dL Est Cr Clr Drug Dosing mL/min Estimated GFR (MDRD) (>60) BUN/Creatinine Ratio (9-20) Glucose (80-116) mg/dL Calcium (8.6-10.2) mg/dL Total Bilirubin (0.1-1.3) mg/dL AST (5-25) IU/L ALT (12-36) U/L Alkaline Phosphatase (56-112) IU/L Troponin I (4.0-60.3) pg/mL Total Protein (6.0-8.0) g/dL Albumin (3.2-4.6) g/dL Globulin g/dL Albumin/Globulin Ratio Meds: Medications Discontinued Medications Generic Name Dose Route Start Last Admin Trade Name Freq PRN Reason Stop Dose Admin Oxycodone/Acetaminophen 1 tab 05/31/20 18:48 05/31/20 18:56 Percocet 325-5 Mg PO 05/31/20 18:49 1 tab NOW STA Administration Sodium Chloride 10 ml 05/31/20 17:53 Saline Flush FLUSH ASDIRECTED PRN Keep Vein Open Departure - Departure Time of Disposition: 19:20 Disposition: Home, Self-Care 01 Condition: Good Clinical Impression: Chronic low back pain, Dehydration, SHERIF (acute kidney injury) - Discharge Information Prescriptions: Acetaminophen/oxyCODONE [Percocet 325-5 MG] 1 each PO Q4H PRN #10 tab PRN Reason: back pain Instructions: Acute Kidney Injury, Adult, Dehydration, Adult, [id number], Chronic Back Pain, [id number] Referrals: Randolph Hanson PA [Primary Care Provider] - Forms: ED Department Discharge Additional Instructions: Please read discharge instructions on chronic low back pain,dehydration, kidney stone Take tramadol 50 mg with tylenol 1000 mg every 8 hours as needed for pain Percocet 5 mg 1 tablet every 6 hours as needed for pain that you can't tolerate Do not take the following medicines for 4 days while your kidney is recovering: Aspirin,ibuprofen,furosemide You can drink 1-1.5 liters of fluid a day that will help your kidneys recover Follow up with your doctor on Friday to recheck your kidney function Sepsis Event Note (ED) - Evaluation Sepsis Screening Result: No Definite Risk - My Orders Last 24 Hours: My Active Orders 05/31/20 17:53 Saline Lock Insert [OM.PC] Routine EKG 12 Lead [EK] Routine - Assessment/Plan Last 24 Hours: My Active Orders 05/31/20 17:53 Saline Lock Insert [OM.PC] Routine EKG 12 Lead [EK] Routine
[2020-05-31 19:27] VITALS: BP 136/57; PULSE 59
== END 2020-05-31 19:37 | disposition home or self-care (01) ==
LOC: FB.ED 17:30
DX: N17.9 Acute kidney failure, unspecified (principal); E86.0 Dehydration; M54.5 Low back pain; G89.29 Other chronic pain; E03.9 Hypothyroidism, unspecified; E66.9 Obesity, unspecified; M19.90 Unspecified osteoarthritis, unspecified site; I48.91 Unspecified atrial fibrillation; I13.0 Hypertensive heart and chronic kidney disease with heart failure and stage 1 through stage 4 chronic kidney disease, or unspecified chronic kidney disease; I50.9 Heart failure, unspecified; I25.2 Old myocardial infarction; N18.9 Chronic kidney disease, unspecified; Z79.01 Long term (current) use of anticoagulants; Z79.899 Other long term (current) drug therapy; Z87.891 Personal history of nicotine dependence; Z79.82 Long term (current) use of aspirin; Z68.36 Body mass index [BMI] 36.0-36.9, adult; Z88.1 Allergy status to other antibiotic agents; Z88.8 Allergy status to other drugs, medicaments and biological substances
CPT/HCPCS: 36415; 74176; 80053; 84484; 85025; 85610; 99283; 99285-25; A9270-GY

== ENCOUNTER 2020-10-19 15:17 | Emergency (ER) | payer MEDICARE, BC ==
[2020-10-19] MEDS ORDERED: Cyclobenzaprine 10 MG Tab PO STA (15:25)
[2020-10-19] MEDS ORDERED: Acetaminophen/oxyCODONE 325-5 MG Tab PO STA (15:25)
[2020-10-19] MEDS ORDERED: Morphine 2 MG/ML SYRINGE IVPUSH STA (15:25)
[2020-10-19] MEDS ORDERED: Ketorolac 30 MG/ML SDV IVPUSH ONE (15:25)
[2020-10-19] MEDS ORDERED: Sodium Chloride 0.9% 10 ML Syringe FLUSH PRN (15:25)
--- NOTE | 2020-10-19 15:53 | EDM.PDOC ---
ED HPI GENERAL MEDICAL PROBLEM - General Stated Complaint: BACK/LEG PAIN Time Seen by Provider: 10/19/20 15:25 Source of Information: Reports: Patient History Limitations: Reports: No Limitations - History of Present Illness INITIAL COMMENTS - FREE TEXT/NARRATIVE: Patient presented to the ED from the clinic because of shay back pain. She has a history of low back pain and has been worse for the past 3 days. the pain is sharp,8/10, radiating to both legs. There is no lost of bowel or bladder control. She took 1 gm of tylenol this morning without any relief. Lower Back Pain Score (Numeric/FACES): 8 - Related Data Allergies Allergy/AdvReac Type Severity Reaction Status Date / Time amoxicillin trihydrate Allergy Diarrhea Verified 05/31/20 17:55 [From Augmentin] celecoxib [From Celebrex] Allergy Stomach Verified 05/31/20 17:55 Ache ciprofloxacin [From Cipro] Allergy Nausea Verified 05/31/20 17:55 ciprofloxacin HCl Allergy Nausea Verified 05/31/20 17:55 [From Cipro] hydrochlorothiazide Allergy Dizziness Verified 05/31/20 17:55 lisinopril Allergy Rash Verified 05/31/20 17:55 potassium clavulanate Allergy Diarrhea Verified 05/31/20 17:55 [From Augmentin] rofecoxib [From Vioxx] Allergy Stomach Verified 05/31/20 17:55 Ache Home Meds: Home Meds Citalopram [Citalopram HBr] 10 mg PO DAILY 06/14/14 [History] Aspirin [Ecotrin EC] 81 mg PO DAILY 05/05/16 [History] Metoprolol Tartrate 12.5 mg PO BID 05/05/16 [History] Pramipexole [Mirapex] 0.25 mg PO BEDTIME 05/05/16 [History] Warfarin Sodium 5 mg PO ASDIRECTED 05/05/16 [History] Sennosides/Docusate Sodium [Senna Laxative Tablet] 8.6 mg PO DAILY PRN 12/04/17 [History] ondansetron HCL [Zofran] 4 mg PO Q6H PRN 12/04/17 [History] Clobetasol [Clobetasol 0.05%] 1 applic TOP BEDTIME PRN 11/06/19 [History] Cyanocobalamin (Vitamin B-12) [B-12] 1,000 mcg PO DAILY 11/06/19 [History] Fish Oil/[place]-3 Fatty Acids [Fish Oil 1,000 MG] 1 gm PO DAILY 11/06/19 [History] Levothyroxine Sodium [Synthroid] 75 mcg PO DAILY 11/06/19 [History] ramipriL [Altace] 5 mg PO DAILY cap 11/07/19 [Rx] Denosumab [Prolia] 1 dose .XX Q6M 05/27/20 [History] Furosemide [Lasix] 40 mg PO DAILY 05/27/20 [History] Loperamide HCl [Imodium A-D] 2 mg PO ASDIRECTED PRN 05/27/20 [History] Nitroglycerin 0.4 mg SL ASDIRECTED 05/27/20 [History] .Iron 65 mg PO BEDTIME 05/28/20 [History] .Vit D 400 intnl unit PO BEDTIME 05/28/20 [History] Magnesium 250 mg PO BEDTIME 05/28/20 [History] Acetaminophen [Tylenol] 650 mg PO Q6H 5 Days #40 tablet 05/29/20 [Rx] Calcium Carbonate [Oyster Shell Calcium] 500 mg PO BID 30 Days #60 tablet 05/29/20 [Rx] Ibuprofen [Motrin] 200 mg PO Q6H 10 Days #40 tablet 05/29/20 [Rx] traMADol [Ultram] 50 mg PO Q6H PRN 3 Days #12 tablet 05/29/20 [Rx] Acetaminophen/oxyCODONE [Percocet 325-5 MG] 1 each PO Q4H PRN #10 tab 05/31/20 [Rx] Acetaminophen/oxyCODONE [Percocet 325-5 MG] 1 each PO Q4H PRN #10 tab 10/19/20 [Rx] Cyclobenzaprine [Flexeril] 10 mg PO TID PRN #15 tab 10/19/20 [Rx] Past Medical History HEENT History: Reports: Cataract Cardiovascular History: Reports: Afib, Heart Failure, Hypertension, [place], Pacemaker Other Cardiovascular History: Non-stemi Other Respiratory History: smoker 20 years ago Gastrointestinal History: Reports: GERD Other Gastrointestinal History: by pass surgery 15 years ago as stated by Genitourinary History: Reports: Chronic Renal Insuffiency, Renal Calculus 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 History: Musculoskeletal History: Reports: Arthritis, Osteoporosis Other Musculoskeletal History: verbaizes history of arthritis in hands and back Neurological History: Reports: Concussion Psychiatric History: Reports: Anxiety, Depression Other Psychiatric History: confused and dizzy Endocrine/Metabolic History: Reports: Hypothyroidism, Obesity/BMI 30+ Hematologic History: Reports: Anemia, Anticoagulation Therapy - Infectious Disease History Infectious Disease History: Reports: Chicken Pox, Measles, Mumps, Novel Coronavirus - Past Surgical History HEENT Surgical History: Reports: Cataract Surgery Other HEENT Surgeries/Procedures: bilat cataract Cardiovascular Surgical History: Reports: Other (See Below) Other Cardiovascular Surgeries/Procedures: states that patient had a valve placed 5 years ago. GI Surgical History: Reports: Bariatric Procedure, Cholecystectomy Other GI Surgeries/Procedures: 15 years ago Female Surgical History: Reports: Hysterectomy, Tubal Ligation Musculoskeletal Surgical History: Reports: Knee Replacement Other Musculoskeletal Surgeries/Procedures:: L knee replacement Social & Family History - Family History Family Medical History: No Pertinent Family History HEENT: Reports: None - Caffeine Use Caffeine Use: Reports: Coffee Other Caffeine Use: 3 Diet Cokes/day ED ROS GENERAL - Review of Systems Review Of Systems: See Below Constitutional: Reports: No Symptoms HEENT: Reports: No Symptoms Respiratory: Reports: No Symptoms Cardiovascular: Reports: No Symptoms Endocrine: Reports: No Symptoms GI/Abdominal: Reports: No Symptoms : Reports: No Symptoms Musculoskeletal: Reports: Back Pain, Leg Pain Skin: Reports: No Symptoms Neurological: Reports: No Symptoms Psychiatric: Reports: No Symptoms ED EXAM,LOWER BACK PAIN/INJURY - Physical Exam Exam: See Below Exam Limited By: No Limitations General Appearance: Alert, No Apparent Distress Eye Exam: Bilateral Eye: PERRL Ears: Normal External Exam, Normal Canal Nose: Normal Inspection, Normal Mucosa, No Blood Throat/Mouth: Normal Inspection, Normal Lips, Normal Teeth Head: Atraumatic, Normocephalic Neck: Normal Inspection, Supple, Non-Tender, Full Range of Motion Respiratory/Chest: No Respiratory Distress, Lungs Clear, Normal Breath Sounds, No Accessory Muscle Use, Chest Non-Tender Cardiovascular: Normal Peripheral Pulses, Regular Rate, Rhythm, No Edema, No Gallop, No JVD, No Murmur (Female) Exam: Normal External Exam, Normal Speculum Exam, Normal Bimanual Exam Back Exam: Normal Inspection, Muscle Spasm, Vertebral Tenderness Extremities: Normal Inspection, Normal Range of Motion, Non-Tender, No Pedal Edema, Normal Capillary Refill Neurological: Alert, Normal Mood/Affect, Normal Dorsiflexion, Normal Reflexes Course - Vital Signs Text/Narrative:: toradol 15 mg IV x1 Morphine 2 mg IV x1 Flexeril 10 mg PO x1 Percocet 5 mg, 2 po x1 Last Recorded V/S: Last Vital Signs Temp 37.1 C 10/19/20 15:18 Pulse 60 10/19/20 15:18 Resp 20 10/19/20 15:18 BP 140/61 10/19/20 15:18 Pulse Ox 98 10/19/20 15:18 - Orders/Labs/Meds Orders: Active Orders 24 hr Category Date Time Status Saline Lock Insert [OM.PC] Routine Oth 10/19/20 15:25 Ordered Meds: Medications Discontinued Medications Generic Name Dose Route Start Last Admin Trade Name Freq PRN Reason Stop Dose Admin Cyclobenzaprine HCl 10 mg 10/19/20 15:25 10/19/20 16:01 Cyclobenzaprine 10 Mg Tab PO 10/19/20 15:26 10 mg NOW STA Administration Ketorolac Tromethamine 15 mg 10/19/20 15:25 10/19/20 16:02 Ketorolac 30 Mg/Ml Sdv IVPUSH 10/19/20 15:26 15 mg ONETIME ONE Administration Morphine Sulfate 2 mg 10/19/20 15:25 10/19/20 16:05 Morphine 2 Mg/Ml Syringe IVPUSH 10/19/20 15:26 2 mg NOW STA Administration Oxycodone/Acetaminophen 2 tab 10/19/20 15:25 10/19/20 16:00 Acetaminophen/Oxycodone 325-5 Mg Tab PO 10/19/20 15:26 2 tab NOW STA Administration Sodium Chloride 10 ml 10/19/20 15:25 10/19/20 16:06 Sodium Chloride 0.9% 10 Ml Syringe FLUSH 10 ml ASDIRECTED PRN Administration Keep Vein Open Departure - Departure Time of Disposition: 16:30 Disposition: Home, Self-Care 01 Condition: Good Clinical Impression: Chronic low back pain - Discharge Information Prescriptions: Cyclobenzaprine [Flexeril] 10 mg PO TID PRN #15 tab PRN Reason: Spasms Acetaminophen/oxyCODONE [Percocet 325-5 MG] 1 each PO Q4H PRN #10 tab PRN Reason: Pain Instructions: Chronic Back Pain, [id number], Lumbosacral Radiculopathy Referrals: Nohemi Borjas MD [Primary Care Provider] - Forms: ED Department Discharge Additional Instructions: Please read discharge instructions on chronic low back pain Flexeril 10 mg every 8 hours as needed for spasm Percocet 5 mg, 1-2 tablets every 4-6 hours as needed for pain Follow up if symptoms persist Sepsis Event Note (ED) - Focused Exam Vital Signs: Vital Signs Temp Pulse Resp BP Pulse Ox 10/19/20 15:18 37.1 C 60 20 140/61 98 - My Orders Last 24 Hours: My Active Orders 10/19/20 15:25 Saline Lock Insert [OM.PC] Routine - Assessment/Plan Last 24 Hours: My Active Orders 10/19/20 15:25 Saline Lock Insert [OM.PC] Routine
[2020-10-19 16:54] VITALS: BP 140/61; PULSE 60
== END 2020-10-19 16:35 | disposition home or self-care (01) ==
LOC: FB.ED 15:17
DX: G89.29 Other chronic pain (principal); M54.5 Low back pain; I48.91 Unspecified atrial fibrillation; I11.0 Hypertensive heart disease with heart failure; I50.9 Heart failure, unspecified; I25.2 Old myocardial infarction; E66.9 Obesity, unspecified; E03.9 Hypothyroidism, unspecified; Z79.01 Long term (current) use of anticoagulants; Z88.0 Allergy status to penicillin; Z95.0 Presence of cardiac pacemaker; Z79.82 Long term (current) use of aspirin; Z88.1 Allergy status to other antibiotic agents; Z88.8 Allergy status to other drugs, medicaments and biological substances; Z79.899 Other long term (current) drug therapy; Z68.30 Body mass index [BMI] 30.0-30.9, adult
CPT/HCPCS: 96374; 96375; 99283; A9270; J1885; J2270

== ENCOUNTER 2021-03-08 17:18 | Observation (INO) | payer MEDICARE, BC ==
--- NOTE | 2021-03-08 17:26 | EDM.PDOC ---
ED HPI GENERAL MEDICAL PROBLEM - General Stated Complaint: VOMITING Time Seen by Provider: 03/08/21 17:23 Source of Information: Reports: Patient History Limitations: Reports: No Limitations - History of Present Illness INITIAL COMMENTS - FREE TEXT/NARRATIVE: 80-year-old female who reports at approximately 3 AM today she began to have nausea and had vomiting and has had continued vomiting since then with vomiting 10-12. She has had no pain. There is no chest pain or abdominal pain. She has no back, neck, arm or jaw pain. She states she has had nausea and vomiting in the past and has some Zofran at home that she takes usually settles down after 1-2 doses but she has had 6 doses since 3 AM without any relenting of her vomiting. There has been no dysuria or hematuria. No fevers or chills. She has not had a bowel movement today and does not remember when her last bowel movement was. She does not feel full or bloated. She has tried to drink liquids multiple times today but it always has resulted in her having vomiting. She again denies any pain and would rate her pain as a 0/10. She does feel somewhat weak all over. No nasal congestion. No sore throat. No cough. No difficulty breathing. There are no other associated signs or symptoms. There are no other modifying factors. Onset: Today Duration: Constant (A.m.) Location: Reports: Other (No pain.) Quality: Reports: Other (Not applicable.) Improves with: Reports: None Worsens with: Reports: None Context: Reports: Other (As above.) Associated Symptoms: Reports: No Other Symptoms (Except as above.) Treatments COUNTER ROLLER: Reports: Other Medication(s) (Zofran) - Related Data Allergies Allergy/AdvReac Type Severity Reaction Status Date / Time amoxicillin trihydrate Allergy Diarrhea Verified 03/08/21 18:50 [From Augmentin] celecoxib [From Celebrex] Allergy Stomach Verified 03/08/21 18:50 Ache ciprofloxacin [From Cipro] Allergy Nausea Verified 03/08/21 18:50 ciprofloxacin HCl Allergy Nausea Verified 03/08/21 18:50 [From Cipro] hydrochlorothiazide Allergy Dizziness Verified 03/08/21 18:50 lisinopril Allergy Rash Verified 03/08/21 18:50 potassium clavulanate Allergy Diarrhea Verified 03/08/21 18:50 [From Augmentin] rofecoxib [From Vioxx] Allergy Stomach Verified 03/08/21 18:50 Ache Home Meds: Home Meds Citalopram [Citalopram HBr] 10 mg PO DAILY 06/14/14 [History] Metoprolol Tartrate 12.5 mg PO BID 05/05/16 [History] Pramipexole [Mirapex] 0.25 mg PO BEDTIME 05/05/16 [History] Warfarin Sodium 5 mg PO ASDIRECTED 05/05/16 [History] ondansetron HCL [Zofran] 4 mg PO Q6H PRN 12/04/17 [History] Cyanocobalamin (Vitamin B-12) [B-12] 1,000 mcg PO DAILY 11/06/19 [History] Fish Oil/[place]-3 Fatty Acids [Fish Oil 1,000 MG] 1 gm PO DAILY 11/06/19 [History] Levothyroxine Sodium [Synthroid] 75 mcg PO DAILY 11/06/19 [History] ramipriL [Altace] 5 mg PO DAILY cap 11/07/19 [Rx] Furosemide [Lasix] 40 mg PO DAILY 05/27/20 [History] Loperamide HCl [Imodium A-D] 2 mg PO ASDIRECTED PRN 05/27/20 [History] Magnesium 250 mg PO BEDTIME 05/28/20 [History] Acetaminophen [Tylenol] 650 mg PO Q6H 5 Days #40 tablet 05/29/20 [Rx] Calcium Carbonate [Oyster Shell Calcium] 500 mg PO BID 30 Days #60 tablet 05/29/20 [Rx] Ibuprofen [Motrin] 200 mg PO Q6H 10 Days #40 tablet 05/29/20 [Rx] traMADol [Ultram] 50 mg PO Q6H PRN 3 Days #12 tablet 05/29/20 [Rx] Acetaminophen/oxyCODONE [Percocet 325-5 MG] 1 each PO Q4H PRN #10 tab 10/19/20 [Rx] Past Medical History HEENT History: Reports: Cataract Cardiovascular History: Reports: Afib, CAD, Heart Failure, High Cholesterol, Hypertension, [place], Pacemaker Other Cardiovascular History: Non-stemi Gastrointestinal History: Reports: GERD Genitourinary History: Reports: Chronic Renal Insuffiency, Renal Calculus 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: Musculoskeletal History: Reports: Arthritis, Osteoporosis Other Musculoskeletal History: verbaizes history of arthritis in hands and back Neurological History: Reports: Concussion Psychiatric History: Reports: Anxiety, Depression Endocrine/Metabolic History: Reports: Hypothyroidism, Obesity/BMI 30+ Hematologic History: Reports: Anemia, Anticoagulation Therapy - Infectious Disease History Infectious Disease History: Reports: Chicken Pox, Measles, Mumps, Novel Coronavirus - Past Surgical History HEENT Surgical History: Reports: Cataract Surgery Other HEENT Surgeries/Procedures: bilat cataract Cardiovascular Surgical History: Reports: Coronary Artery Bypass, Pacer, Other (See Below) Other Cardiovascular Surgeries/Procedures: states that patient had a valve placed 5 years ago. GI Surgical History: Reports: Bariatric Procedure, Cholecystectomy Other GI Surgeries/Procedures: 15 years ago Female Surgical History: Reports: Hysterectomy, Tubal Ligation Musculoskeletal Surgical History: Reports: Knee Replacement Other Musculoskeletal Surgeries/Procedures:: L knee replacement Social & Family History - Tobacco Use Tobacco Use Status *Q: Former Tobacco User - Caffeine Use Caffeine Use: Reports: Soda Other Caffeine Use: 3 Diet Cokes/day - Alcohol Use Alcohol Use History: No - Living Situation & Occupation Occupation: Retired ED ROS GENERAL - Review of Systems Review Of Systems: See Below Constitutional: Reports: Weakness. Denies: Fever, Chills HEENT: Denies: Throat Pain, Throat Swelling Respiratory: Denies: Shortness of Breath, Cough Cardiovascular: Denies: Chest Pain, Palpitations GI/Abdominal: Reports: Nausea, Vomiting. Denies: Diarrhea : Denies: Dysuria, Hematuria Musculoskeletal: Denies: Neck Pain, Back Pain Skin: Denies: Diaphoresis, Rash Neurological: Denies: Dizziness, Headache Psychiatric: Denies: Anxiety, Confusion Hematologic/Lymphatic: Reports: Easy Bleeding, Easy Bruising, Other (Patient is chronically anticoagulated on Coumadin.) ED EXAM, GI/ABD - Physical Exam Exam: See Below Exam Limited By: No Limitations General Appearance: Alert, WD/WN, Mild Distress Eyes: Bilateral: Normal Appearance, EOMI Ears: Normal External Exam Nose: Normal Inspection, Normal Mucosa, No Blood Throat/Mouth: Normal Voice, No Airway Compromise, Other (Dry mucus membranes. No erythema posteriorly.) Head: Atraumatic, Normocephalic Neck: Normal Inspection, Supple, Non-Tender, Full Range of Motion Respiratory/Chest: No Respiratory Distress, Lungs Clear, Normal Breath Sounds, No Accessory Muscle Use Cardiovascular: Normal Peripheral Pulses, Regular Rate, Rhythm, No Edema GI/Abdominal Exam: Normal Bowel Sounds, Soft, Non-Tender Back Exam: Normal Inspection, Full Range of Motion. No: CVA Tenderness (R), CVA Tenderness (L) Extremities: Normal Inspection, Normal Range of Motion, Non-Tender, No Pedal Edema, Normal Capillary Refill Neurological: Alert, Oriented, CN II-XII Intact, Normal Cognition, No Motor/Sensory Deficits Psychiatric: Normal Affect Skin Exam: Warm, Dry, Intact, Normal Color, No Rash #1 Interpretation EKG Date: 03/08/21 Time: 18:00 Rhythm: Other (Ventricular paced rhythm) Rate (Beats/Min): 60 [place]: LAD-Left [place] Deviation QRS: LBBB Comparison: No Change (No change from an EKG performed on 05/27/2020.) #2 Interpretation EKG Date: 03/08/21 Time: 21:07 Rhythm: Other (Ventricular paced rhythm) Rate (Beats/Min): 60 [place]: LAD-Left [place] Deviation QRS: LBBB Comparison: No Change (No change from EKG that was performed at 1800 hrs. today.) Course - Vital Signs Last Recorded V/S: Last Vital Signs Temp 36.8 C 03/08/21 19:42 Pulse 60 03/08/21 19:42 Resp 23 H 03/08/21 19:42 BP 179/74 H 03/08/21 19:42 Pulse Ox 97 03/08/21 19:42 - Orders/Labs/Meds Orders: Active Orders 24 hr Category Date Time Status Patient Status [ADT] Routine ADT 03/08/21 19:42 Active Cardiac Monitoring [RC] CONTINUOUS Care 03/08/21 19:47 Active Height and Weight [RC] UPON Care 03/08/21 19:42 Active Intake and Output [RC] QSHIFT Care 03/08/21 19:47 Active Oxygen Therapy [RC] PRN Care 03/08/21 19:42 Active Up With Assistance [RC] ASDIRECTED Care 03/08/21 19:42 Active VTE/DVT Education [RC] Per Unit Routine Care 03/08/21 19:42 Active Vital Signs [RC] 08,12,16,20,00,04 Care 03/08/21 19:42 Active Clear Liquid Diet [DIET] Diet 03/08/21 Dinner Ordered BASIC METABOLIC PANEL,BMP [CHEM] AM Lab 03/09/21 05:11 Ordered CBC WITH AUTO DIFF [HEME] AM Lab 03/09/21 05:11 Ordered CULTURE URINE [RM] Stat Lab 03/08/21 18:15 Received TROPONIN I [CHEM] AM Lab 03/09/21 05:11 Ordered Metoclopramide [Reglan] Med 03/08/21 19:54 Active 10 mg IVPUSH Q6H PRN Ondansetron [Zofran] Med 03/08/21 19:42 Active 4 mg IV Q6H PRN Sodium Chloride 0.9% [Normal Saline] 1,000 ml Med 03/08/21 19:45 Active IV ASDIRECTED Sodium Chloride 0.9% [Saline Flush] Med 03/08/21 17:35 Active 10 ml FLUSH ASDIRECTED PRN Peripheral IV Insertion Adult [OM.PC] Routine Oth 03/08/21 17:35 Ordered Resuscitation Status Routine Resus Stat 03/08/21 19:42 Ordered EKG 12 Lead [EK] AM Ther 03/09/21 05:11 Ordered EKG 12 Lead [EK] Routine Ther 03/08/21 17:35 Ordered EKG 12 Lead [EK] Stat Ther 03/08/21 21:00 Ordered Medication Orders Sodium Chloride (Normal Saline) 1,000 mls @ 100 mls/hr IV ASDIRECTED HEIDI Last Admin: 03/08/21 18:50 Dose: 100 mls/hr Documented by: LOW Metoclopramide HCl (Metoclopramide 10 Mg/2 Ml Sdv) 10 mg IVPUSH Q6H PRN PRN Reason: Nausea/Vomiting Ondansetron HCl (Ondansetron 4 Mg/2 Ml Sdv) 4 mg IV Q6H PRN PRN Reason: Nausea/Vomiting Sodium Chloride (Sodium Chloride 0.9% 10 Ml Syringe) 10 ml FLUSH ASDIRECTED PRN PRN Reason: Keep Vein Open Last Admin: 03/08/21 17:50 Dose: 10 ml Documented by: STEPHANY Labs: Laboratory Tests 03/08/21 03/08/21 03/08/21 Range/Units 17:55 17:55 17:55 WBC 4.6 (3.0-10.3) x10-3/uL RBC 3.76 (3.60-5.20) x10(6)uL Hgb 11.3 L (11.4-15.5) g/dL Hct 34.7 (34.2-48.2) % MCV 92.2 (76.7-100.5) fL MCH 30.0 (23.9-33.9) pg MCHC 32.6 (31.9-34.8) g/dL RDW 14.5 (12.3-16.5) % Plt Count 222 (151-488) x10(3)uL MPV 7.9 (7.1-12.4) fL Neut % (Auto) 66.7 (30.8-76.2) % Lymph % (Auto) 17.9 L (18.4-52.1) % [place] % (Auto) 12.6 (4.4-15.7) % Eos % (Auto) 2.1 (0.6-8.1) % Baso % (Auto) 0.7 (0.2-1.5) % Neut # (Auto) 3.1 (1.5-6.3) x10-3/uL Lymph # (Auto) 0.8 L (1.0-4.4) x10-3/uL [place] # (Auto) 0.6 (0.3-1.0) x10-3/uL Eos # (Auto) 0.1 (0.0-0.8) x10-3/uL Baso # (Auto) 0.0 (0.0-0.1) x10-3/uL PT (9.0-11.1) sec INR (1.00-1.24) Sodium 141 (135-145) mmol/L Potassium 4.1 D (3.5-5.3) mmol/L Chloride 104 D (100-110) mmol/L Carbon Dioxide 31 (21-32) mmol/L BUN 26 H D (7-18) mg/dL Creatinine 1.5 H (0.55-1.02) mg/dL Est Cr Clr Drug Dosing TNP Estimated GFR (MDRD) 33 L (>60) BUN/Creatinine Ratio 17.3 (9-20) Glucose 141 H (80-116) mg/dL Calcium 9.1 (8.6-10.2) mg/dL Magnesium 2.0 (1.8-2.5) mg/dL Total Bilirubin 0.8 (0.1-1.3) mg/dL AST 23 (5-25) IU/L ALT 16 (12-36) U/L Alkaline Phosphatase 39 L (56-112) IU/L Troponin I 409.2 H* (4.0-60.3) pg/mL Total Protein 7.4 (6.0-8.0) g/dL Albumin 3.7 (3.2-4.6) g/dL Globulin 3.7 g/dL Albumin/Globulin Ratio 1.0 Urine Color (YELLOW) Urine Appearance (CLEAR) Urine pH (5.0-6.5) Ur Specific [place] (1.010-1.025) Urine Protein (NEGATIVE) mg/dL Urine Glucose (UA) (NORMAL) mg/dL Urine Ketones (NEGATIVE) mg/dL Urine Occult Blood (NEGATIVE) Urine Nitrite (NEGATIVE) Urine Bilirubin (NEGATIVE) Urine Urobilinogen (NEGATIVE) mg/dL Ur Leukocyte Esterase (NEGATIVE) Urine RBC (0-5) Urine WBC (0-5) Ur Squamous Epith Cells (NS,R,O) Urine Bacteria (NS) SARS-CoV-2 RNA (ANANYA) (NEGATIVE) 03/08/21 03/08/21 03/08/21 Range/Units 17:55 18:15 19:45 WBC (3.0-10.3) x10-3/uL RBC (3.60-5.20) x10(6)uL Hgb (11.4-15.5) g/dL Hct (34.2-48.2) % MCV (76.7-100.5) fL MCH (23.9-33.9) pg MCHC (31.9-34.8) g/dL RDW (12.3-16.5) % Plt Count (151-488) x10(3)uL MPV (7.1-12.4) fL Neut % (Auto) (30.8-76.2) % Lymph % (Auto) (18.4-52.1) % [place] % (Auto) (4.4-15.7) % Eos % (Auto) (0.6-8.1) % Baso % (Auto) (0.2-1.5) % Neut # (Auto) (1.5-6.3) x10-3/uL Lymph # (Auto) (1.0-4.4) x10-3/uL [place] # (Auto) (0.3-1.0) x10-3/uL Eos # (Auto) (0.0-0.8) x10-3/uL Baso # (Auto) (0.0-0.1) x10-3/uL PT 37.1 H* (9.0-11.1) sec INR 3.75 H (1.00-1.24) Sodium (135-145) mmol/L Potassium (3.5-5.3) mmol/L Chloride (100-110) mmol/L Carbon Dioxide (21-32) mmol/L BUN (7-18) mg/dL Creatinine (0.55-1.02) mg/dL Est Cr Clr Drug Dosing Estimated GFR (MDRD) (>60) BUN/Creatinine Ratio (9-20) Glucose (80-116) mg/dL Calcium (8.6-10.2) mg/dL Magnesium (1.8-2.5) mg/dL Total Bilirubin (0.1-1.3) mg/dL AST (5-25) IU/L ALT (12-36) U/L Alkaline Phosphatase (56-112) IU/L Troponin I (4.0-60.3) pg/mL Total Protein (6.0-8.0) g/dL Albumin (3.2-4.6) g/dL Globulin g/dL Albumin/Globulin Ratio Urine Color Yellow (YELLOW) Urine Appearance Cloudy (CLEAR) Urine pH 7.0 H (5.0-6.5) Ur Specific [place] 1.010 (1.010-1.025) Urine Protein 30 H (NEGATIVE) mg/dL Urine Glucose (UA) Normal (NORMAL) mg/dL Urine Ketones Negative (NEGATIVE) mg/dL Urine Occult Blood Moderate H (NEGATIVE) Urine Nitrite Negative (NEGATIVE) Urine Bilirubin Negative (NEGATIVE) Urine Urobilinogen Normal (NEGATIVE) mg/dL Ur Leukocyte Esterase Large H (NEGATIVE) Urine RBC 5-10 H (0-5) Urine WBC >100 H (0-5) Ur Squamous Epith Cells Few H (NS,R,O) Urine Bacteria Many H (NS) SARS-CoV-2 RNA (ANANYA) Negative (NEGATIVE) Meds: Medications Generic Name Dose Route Start Last Admin Trade Name Freq PRN Reason Stop Dose Admin Sodium Chloride 1,000 mls @ 100 mls/hr 03/08/21 19:45 03/08/21 18:50 Normal Saline IV 100 mls/hr ASDIRECTED HEIDI Administration Metoclopramide HCl 10 mg 03/08/21 19:54 Metoclopramide 10 Mg/2 Ml Sdv IVPUSH Q6H PRN Nausea/Vomiting Ondansetron HCl 4 mg 03/08/21 19:42 Ondansetron 4 Mg/2 Ml Sdv IV Q6H PRN Nausea/Vomiting Sodium Chloride 10 ml 03/08/21 17:35 03/08/21 17:50 Sodium Chloride 0.9% 10 Ml Syringe FLUSH 10 ml ASDIRECTED PRN Administration Keep Vein Open Discontinued Medications Generic Name Dose Route Start Last Admin Trade Name Yoanq PRN Reason Stop Dose Admin Ceftriaxone Sodium 1 gm 03/08/21 19:10 03/08/21 19:39 Ceftriaxone 1 Gm Vial IVPUSH 03/08/21 19:11 1 gm ONETIME ONE Administration Sodium Chloride 1,000 mls @ 999 mls/hr 03/08/21 17:37 03/08/21 17:50 Normal Saline IV 03/08/21 18:37 999 mls/hr .BOLUS ONE Administration Metoclopramide HCl 10 mg 03/08/21 17:37 03/08/21 17:50 Metoclopramide 10 Mg/2 Ml Sdv IVPUSH 03/08/21 17:38 10 mg ONETIME ONE Administration Pramipexole Dihydrochloride 0.25 mg 03/08/21 20:41 03/08/21 20:46 Pramipexole 0.25 Mg Tab PO 03/08/21 20:42 0.25 mg NOW STA Administration - Re-Assessments/Exams Free Text/Narrative Re-Assessment/Exam: 03/08/21 18:30: One blood cell count is 4.6. Hemoglobin is 11.3. Platelet count is normal. INR 3.75. Sodium is 141. Potassium is 4.1. Bicarbonate is 31. BUN is 26 and creatinine is 1.5 (the patient does have some history of CRI). Glucose is 141. LFTs are normal. Magnesium level is normal. Troponin is 409.2 with the upper limit of normal at 60.3. The patient tells me she feels much improved. She still has no chest pain and has never had any chest pain, back pain, arm pain, neck pain, jaw pain or abdominal pain. I am unsure why she has troponin elevation but looking in her past records she has had some mild troponin bumps the past that seem to be associated with times when she is being stressed secondary to an illness in her for this could be related to strain. 03/08/21 19:15: Urinalysis does show greater than 100 white cells properdin so with many bacteria. I did send the urine for culture. I think it is likely that the UTI that the patient is having is what caused her to have the vomiting and I will treat her with Rocephin 1 g IV. 03/08/21 19:30: I did call [facility] in [place] and they do not have any beds available and would not be able to accept this patient with an elevated troponin in transfer. I discussed patient's case with Dr. Bower, poultry cutter at [facility] in [place], and he feels that the patient could be admitted here. He recommends that the patient have serial troponin serial EKGs and that I treat her dehydration and any electrolyte abnormality and any infectious process and monitor the patient closely. 03/08/21 19:45: I discussed all this with the patient. She is in agreement with plan for admission here. She tells me that she is a CPR only with DNI. She would want medications but no intubation I have ordered a dose of Rocephin to be given tonight for her urinary tract infection but I have not ordered any further. The patient is supratherapeutic on her INR and will not need any anticoagulation. I will place admission orders and the patient will be admitted to observation status for now. The patient's care will be transferred to Dr. Pineda 7 AM on 03/09/2021. 03/08/21 21:10: The rapid Covid test was negative. The patient remains nausea and vomiting free at this point. She has taken some by mouth without further emesis. He has no chest pain, neck pain, jaw pain, arm pain, back pain or abdominal pain. Her repeat EKG is unchanged from the initial EKG done at 1800 hrs. The troponin has been drawn and is pending at this point. 03/08/21 21:40: Patient is on the acute floor now. Her repeat troponin was 448. She remains pain-free/symptom free. We will continue to monitor the patient. The plan will be to repeat her studies in the morning. This still appears to most probably be strain related and not an NSTEMI. Departure - Departure Time of Disposition: 19:42 Disposition: Refer to Observation Condition: Fair Clinical Impression: Dehydration, Elevated troponin I level UTI (urinary tract infection) Qualifiers: Urinary tract infection type: site unspecified Hematuria presence: without hematuria Qualified Code(s): N39.0 - Urinary tract infection, site not specified Vomiting Qualifiers: Vomiting type: unspecified Vomiting Intractability: intractable Nausea presence: with nausea Qualified Code(s): R11.2 - Nausea with vomiting, unspecified - Discharge Information Sepsis Event Note (ED) - Focused Exam Vital Signs: Vital Signs Temp Pulse Resp BP Pulse Ox Pulse Ox 03/08/21 19:42 36.8 C 60 23 H 179/74 H 100 97 03/08/21 17:18 35.7 C L 60 16 175/75 H 99 - My Orders Last 24 Hours: My Active Orders 03/08/21 Dinner Clear Liquid Diet [DIET] 03/08/21 17:35 Sodium Chloride 0.9% [Saline Flush] 10 ml FLUSH ASDIRECTED PRN Peripheral IV Insertion Adult [OM.PC] Routine EKG 12 Lead [EK] Routine 03/08/21 18:15 CULTURE URINE [RM] Stat 03/08/21 19:42 Patient Status [ADT] Routine Height and Weight [RC] UPON Oxygen Therapy [RC] PRN Up With Assistance [RC] ASDIRECTED VTE/DVT Education [RC] Per Unit Routine Vital Signs [RC] 08,12,16,20,00,04 Ondansetron [Zofran] 4 mg IV Q6H PRN Resuscitation Status Routine 03/08/21 19:45 Sodium Chloride 0.9% [Normal Saline] 1,000 ml IV ASDIRECTED 03/08/21 19:47 Cardiac Monitoring [RC] CONTINUOUS Intake and Output [RC] QSHIFT 03/08/21 19:54 Metoclopramide [Reglan] 10 mg IVPUSH Q6H PRN 03/08/21 21:00 EKG 12 Lead [EK] Stat 03/09/21 05:11 BASIC METABOLIC PANEL,BMP [CHEM] AM CBC WITH AUTO DIFF [HEME] AM TROPONIN I [CHEM] AM EKG 12 Lead [EK] AM - Assessment/Plan Last 24 Hours: My Active Orders 03/08/21 Dinner Clear Liquid Diet [DIET] 03/08/21 17:35 Sodium Chloride 0.9% [Saline Flush] 10 ml FLUSH ASDIRECTED PRN Peripheral IV Insertion Adult [OM.PC] Routine EKG 12 Lead [EK] Routine 03/08/21 18:15 CULTURE URINE [RM] Stat 03/08/21 19:42 Patient Status [ADT] Routine Height and Weight [RC] UPON Oxygen Therapy [RC] PRN Up With Assistance [RC] ASDIRECTED VTE/DVT Education [RC] Per Unit Routine Vital Signs [RC] 08,12,16,20,00,04 Ondansetron [Zofran] 4 mg IV Q6H PRN Resuscitation Status Routine 03/08/21 19:45 Sodium Chloride 0.9% [Normal Saline] 1,000 ml IV ASDIRECTED 03/08/21 19:47 Cardiac Monitoring [RC] CONTINUOUS Intake and Output [RC] QSHIFT 03/08/21 19:54 Metoclopramide [Reglan] 10 mg IVPUSH Q6H PRN 03/08/21 21:00 EKG 12 Lead [EK] Stat 03/09/21 05:11 BASIC METABOLIC PANEL,BMP [CHEM] AM CBC WITH AUTO DIFF [HEME] AM TROPONIN I [CHEM] AM EKG 12 Lead [EK] AM
[2021-03-08] MEDS ORDERED: Sodium Chloride 0.9% 10 ML Syringe FLUSH PRN (17:35)
[2021-03-08] MEDS ORDERED: Sodium Chloride 0.9% 1,000 ML IV ONE (17:37)
[2021-03-08] MEDS ORDERED: Metoclopramide 10 MG/2 ML SDV IVPUSH ONE (17:37)
[2021-03-08 18:19] VITALS: PULSE 60
[2021-03-08] MEDS ORDERED: cefTRIAXone 1 GM Vial IVPUSH ONE (19:10)
[2021-03-08] MEDS ORDERED: Ondansetron 4 MG/2 ML SDV IV PRN (19:42)
[2021-03-08] MEDS ORDERED: Sodium Chloride 0.9% 1,000 ML IV SCH (19:45)
[2021-03-08] MEDS ORDERED: Metoclopramide 10 MG/2 ML SDV IVPUSH PRN (19:54)
[2021-03-08] MEDS ORDERED: Pramipexole 0.25 MG Tab PO STA (20:41)
[2021-03-08] MEDS ORDERED: Melatonin 3 MG Tab PO STA (23:24)
[2021-03-08 23:55] VITALS: BP 166/75
[2021-03-09] MEDS ORDERED: LORazepam 0.5 MG Tab PO STA (01:42)
--- NOTE | 2021-03-09 10:58 | PCM.SN.2 ---
- Free Text/Narrative Note: 03/09/21 03:10: I had been called by nursing staff to see the patient secondary to her wanting to leave to go home. The patient had been having some problems with sleeping earlier and had been given melatonin initially. Later on she was still complaining of insomnia and at that time was stating that she really did not want to be here because she couldn't sleep while she was here and I had ordered Ativan to be given orally to the patient. The patient tells me that this did not help her go to sleep. She is awake and alert. She is noted to person, place, time and situation. She is told me that she cannot sleep while here and she does not want to stay in the hospital anymore. I discussed with the patient that we needed her to stay so that troponin test and so that we could continue close monitoring of her because of her elevated troponin earlier and the concern that this could represent some type of damage to her heart or a potential heart attack. I also reiterated with her that her weather algorithm scientist, Dr. Bower from [facility] in [place], had recommended that she stay in the hospital and that she have these tests performed. I have conveyed to her the risk of leaving and and told her that leaving would be doing so against my advice. She tells me that she still wishes to leave and she would not consider staying in the hospital for any reason at this point. Her vital signs were reviewed and she has some hypertension but really otherwise her vital signs were normal. She does not appear to be dehydrated. She again adamantly refuses to stay in the hospital. Therefore, the patient will be leaving AGAINST MEDICAL ADVICE.
== END 2021-03-09 03:20 | disposition left against medical advice (07) ==
LOC: FB.ED 17:18 → FB.MS 19:58
PROVIDERS: ADMIT Emergency Medicine; ATTEND Family Medicine
DX: R11.2 Nausea with vomiting, unspecified (principal); N39.0 Urinary tract infection, site not specified; G47.00 Insomnia, unspecified; I48.91 Unspecified atrial fibrillation; I25.10 Atherosclerotic heart disease of native coronary artery without angina pectoris; E78.00 Pure hypercholesterolemia, unspecified; I25.2 Old myocardial infarction; I50.9 Heart failure, unspecified; K21.9 Gastro-esophageal reflux disease without esophagitis; N18.9 Chronic kidney disease, unspecified; I13.0 Hypertensive heart and chronic kidney disease with heart failure and stage 1 through stage 4 chronic kidney disease, or unspecified chronic kidney disease; M81.0 Age-related osteoporosis without current pathological fracture; E03.9 Hypothyroidism, unspecified; E66.9 Obesity, unspecified; Z20.822 Contact with and (suspected) exposure to COVID-19; Z98.890 Other specified postprocedural states; Z90.49 Acquired absence of other specified parts of digestive tract; Z88.1 Allergy status to other antibiotic agents; Z88.8 Allergy status to other drugs, medicaments and biological substances; Z79.899 Other long term (current) drug therapy; Z79.01 Long term (current) use of anticoagulants; Z87.891 Personal history of nicotine dependence
CPT/HCPCS: 36415; 80053; 81001; 83735; 84484; 85025; 85610; 87086; 87088; 87186; 93005; 96374; 96375; 99285; A9270; G0378; J0696; J2765; J7030; U0002

== ENCOUNTER 2021-04-26 11:35 | Emergency (ER) | payer MEDICARE, BC ==
[2021-04-26] MEDS ORDERED: Sodium Chloride 0.9% 10 ML Syringe FLUSH PRN (11:44)
[2021-04-27 09:19] VITALS: BP 150/70; PULSE 60
== END 2021-04-26 12:15 | disposition home or self-care (01) ==
LOC: FB.ED 11:35
DX: R10.32 Left lower quadrant pain (principal)
CPT/HCPCS: 99284

== ENCOUNTER 2022-01-26 17:42 | Emergency (ER) | payer MEDICARE, BC ==
[2022-01-26] MEDS ORDERED: Acetaminophen/HYDROcodone 325-5 MG Tab PO ONE (18:09)
[2022-01-26] MEDS ORDERED: Ketorolac 30 MG/ML SDV IM ONE (18:10)
[2022-01-26 19:20] VITALS: BP 186/71; PULSE 60
== END 2022-01-26 19:27 | disposition home or self-care (01) ==
LOC: FB.ED 17:42
DX: G89.29 Other chronic pain (principal); M54.50 Low back pain, unspecified; I11.0 Hypertensive heart disease with heart failure; I50.9 Heart failure, unspecified; I25.10 Atherosclerotic heart disease of native coronary artery without angina pectoris; I25.2 Old myocardial infarction; E66.9 Obesity, unspecified; Z68.32 Body mass index [BMI] 32.0-32.9, adult; Z88.0 Allergy status to penicillin; Z88.1 Allergy status to other antibiotic agents; Z88.8 Allergy status to other drugs, medicaments and biological substances; Z79.899 Other long term (current) drug therapy; Z79.01 Long term (current) use of anticoagulants; Z86.16 Personal history of COVID-19; Z90.49 Acquired absence of other specified parts of digestive tract; Z90.710 Acquired absence of both cervix and uterus
CPT/HCPCS: 96372; 99283; A9270; J1885

== ENCOUNTER 2022-03-29 12:29 | Emergency (ER) | payer MEDICARE, BC ==
[2022-03-29 12:55] LABS: ESTIMATED GFR 35 mL/min (>60)
[2022-03-29] MEDS ORDERED: Iopamidol 755 Mg/ML 75 ML Bottle IV ONE (14:09)
== END 2022-03-29 14:50 ==
LOC: FB.ED 12:29
DX: I48.0 Paroxysmal atrial fibrillation (principal); I63.9 Cerebral infarction, unspecified; I13.0 Hypertensive heart and chronic kidney disease with heart failure and stage 1 through stage 4 chronic kidney disease, or unspecified chronic kidney disease; I50.9 Heart failure, unspecified; N18.9 Chronic kidney disease, unspecified; D63.1 Anemia in chronic kidney disease; I24.9 Acute ischemic heart disease, unspecified; I25.2 Old myocardial infarction; Z88.0 Allergy status to penicillin; Z88.1 Allergy status to other antibiotic agents; Z88.8 Allergy status to other drugs, medicaments and biological substances; Z79.01 Long term (current) use of anticoagulants; Z79.899 Other long term (current) drug therapy; Z90.49 Acquired absence of other specified parts of digestive tract; Z90.710 Acquired absence of both cervix and uterus; Z20.822 Contact with and (suspected) exposure to COVID-19
CPT/HCPCS: 36415; 70450; 70496; 70498; 71045; 80053; 82947; 84484; 85025; 85610; 85730; 93005; 99285; Q9967; U0002